=== PATIENT | female | born 1995 | race Caucasian/White ===

== ENCOUNTER 2024-08-08 02:40 | Inpatient (IN) ==
[2024-08-08] MEDS ORDERED: OXYTOCIN 30 UNITS/NSS 30 UNITS/500 ML BAG IV PRN ×2 (05:27→16:27)
[2024-08-08] MEDS ORDERED: LIDOCAINE 1% LOCAL 20 ML VIAL INFIL PRN (05:27)
--- NOTE | 2024-08-08 05:34 | History & Physical Report ---
Date of Service August 08, 2024 Assessment & Plan (1) Irregular contractions: (2) : Plan Admit in labor epidural for pain History of Present Illness Chief Complaint: labor Primary Care Provider: SUZIE PCP 30 F P0000 at 39 weeks admitted in labor. GBS is negative. Allergies Allergy/AdvReac Type Severity Reaction Status Date / Time amoxicillin AdvReac Mild Hives Verified 08/08/24 05:09 Home Medications Medication Instructions Recorded Confirmed Type Bifidobacterium infantis 4 mg 1,500 mmu cells PO DAILY 04/27/21 08/08/24 History capsule (Align) Prevacid 30 mg PO DAILY 08/08/24 08/08/24 History mecobalamin (vitamin B12) 1,000 1,000 mcg PO DAILY 08/08/24 08/08/24 History mcg chewable tablet (B12 Active) polyethylene glycol 8 ea miscellaneous DAILY 08/08/24 08/08/24 History vitamin-ferrous sulfate 1 tab PO DAILY 08/08/24 08/08/24 History 27 mg iron-folic acid 0.8 mg tablet Patient History Medical History GERD (gastroesophageal reflux disease) Gastroparesis Surgical History [place] teeth extracted H/O endoscopy H/O colonoscopy Social History Smoking Status: Never smoker Second Hand Exposure: No; Do You Dip or Chew Tobacco: No; Tobacco Cessation Education Requested by Patient: No Hx Alcohol Use: No Hx Substance Use: No Preferred Language: Japanese Communication Ability: Effective Glass Sander Required: No Beliefs That Will Affect Care: None marital status: Current Living Situation: Spouse Other Information That Helps Us Care for You: No Feels Safe at Home: Yes Safety Concerns: Feels Safe At This Time Assistive Devices: None 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 History neg Review of Systems All systems reviewed & are unremarkable except as noted in HPI & below Physical Exam Constitutional: WD/WN, vitals as above Eyes: PERRL, conjunctivae normal, anicteric sclerae Respiratory: normal respiratory effort, lungs clear to auscultation Cardiovascular: Rate/Rhythm: regular rate and regular rhythm Gastrointestinal (Abdomen): Inspection/Auscultation: abdomen normal to inspection Musculoskeletal: Extremities: extremities normal to inspection Skin: no rashes, warm and dry Neurologic: patellar DTR's 2+ bilat, sensation intact Psychiatric: A+Ox3, euthymic affect Genitourinary: Manual OB Exam: + cervical dilation 5 cm, + cervical effacement 50% and + station -2 OB Exam Monitor Tracing: + external FHT monitor used, + external uterine monitor used, + category I and + normal FHT variability Results & Data Vital Signs (Past 12 Hours) Vital Signs Temp Pulse Resp BP 08/08/24 04:51 37.1 C 18 08/08/24 02:48 87 120/74 Code Status & VTE Plan VTE Prophylaxis Plan VTE Prophylaxis will be ordered: No Monitoring External Monitor Cat 1 (2) Weeks of gestation: 39 weeks Qualified Code(s): Z3A.39 - 39 weeks gestation of
[2024-08-08 06:33] LABS: Hematocrit (blood only) 31.7 % (37.0-47.0); Hemoglobin 10.7 g/dl (12.0-16.0); Mean Corpuscular Hemoglobin 30.1 pg (25.0-34.0); Mean Corpuscular Hgb Conc 33.8 g/dL (32.0-36.0); Mean Corpuscular Volume 89.3 fL (80.0-100.0); Mean Platelet Volume 10.1 fL (9.4-12.4); Platelet Count 202 K/uL (130-400); RDW Coefficient of Variation 13.8 % (11.5-14.5); RDW Standard Deviation 45.2 fL (36.4-46.3); Red Blood Count 3.55 M/uL (4.20-5.40); White Blood Count 11.82 K/ul (4.8-10.8)
[2024-08-08] MEDS: LACTATED RINGER'S 1,000 ML IV PRN (07:10)
--- NOTE | 2024-08-08 07:24 | Anesthesiology Consultation ---
Date of Service August 08, 2024 Assessment & Plan (1) Encounter for pre-operative examination: Chart Review Chart Review: Acceptable Risk for Labor Epidural History Height/Weight Height: 5 ft 2 in Weight: 56.415 kg Allergies Allergy/AdvReac Type Severity Reaction Status Date / Time amoxicillin AdvReac Mild Hives Verified 08/08/24 05:09 Medications Home Medications Medication Instructions Recorded Confirmed Last Taken Bifidobacterium infantis 4 mg 1,500 mmu cells PO DAILY 04/27/21 08/08/24 Unknown capsule (Align) Prevacid 30 mg PO DAILY 08/08/24 08/08/24 Unknown mecobalamin (vitamin B12) 1,000 1,000 mcg PO DAILY 08/08/24 08/08/24 Unknown mcg chewable tablet (B12 Active) polyethylene glycol 8 ea miscellaneous DAILY 08/08/24 08/08/24 Unknown vitamin-ferrous sulfate 1 tab PO DAILY 08/08/24 08/08/24 Unknown 27 mg iron-folic acid 0.8 mg tablet Active Medications Generic Name Dose Route Start Last Admin Trade Name Freq PRN Reason Stop Dose Admin Lactated Ringer's 1,000 mls @ 125 mls/hr 08/08/24 05:27 08/08/24 07:10 Lr IV 08/10/24 05:26 999 mls/hr .Q8H PRN Administration L&D Protocol Protocol Past Medical History Medical History GERD (gastroesophageal reflux disease) Gastroparesis Past Surgical History Surgical History [place] teeth extracted H/O endoscopy H/O colonoscopy Social History Smoking Status: Never smoker Do You Dip or Chew Tobacco: No Hx Alcohol Use: No alcohol intake frequency: 0-2 drinks per day Hx Substance Use: No substance use type: does not use Physical Exam Vital Signs Last Vital Signs Temp 37.1 C 08/08/24 04:51 Pulse 90 08/08/24 07:13 Resp 18 08/08/24 05:27 BP 120/74 08/08/24 02:48 Pulse Ox 99 08/08/24 07:13 Testing Laboratory Results 08/08/24 05:49
[2024-08-08] MEDS: fentANYL 2 MCG/ML BUPIVacaine 0.125%-NSS 100ML BAG ONE (08:16)
[2024-08-08] MEDS: BUPIVACAINE 0.25% PF 30 ML VIAL ONE (08:25)
[2024-08-08] MEDS: fentaNYL citrate PF 100 MCG/2 ML VIAL ONE (08:25)
[2024-08-08] MEDS: SODIUM CHLORIDE 0.9% PF INJ 10 ML VIAL ONE (08:30)
[2024-08-08] MEDS: LIDOCAINE 2%/EPINEPHRINE 1:200,000 20 ML PF ONE (08:30)
[2024-08-08] MEDS ORDERED: BUPIVACAINE 0.25% PF 30 ML VIAL EPI PRN (08:37)
[2024-08-08] MEDS ORDERED: fentaNYL citrate PF 100 MCG/2 ML VIAL EPI PRN (08:37)
[2024-08-08] MEDS ORDERED: ONDANSETRON INJ 2 MG/ML 2 ML VIAL IV PRN (08:37)
[2024-08-08] MEDS ORDERED: ePHEDrine sulfate 50 MG/ML AMP IV PRN (08:37)
[2024-08-08] MEDS ORDERED: NALOXONE HCL 0.4 MG/1 ML VIAL/CARP IV PRN (08:37)
[2024-08-08] MEDS ORDERED: ROPIVACAINE 0.5% PF 5 MG/ML 20 ML VIAL EPI PRN (08:37)
[2024-08-08] MEDS ORDERED: NALOXONE HCL 1 MG in SODIUM CHLORIDE 0.9% 1,000 ML IV PRN (08:37)
[2024-08-08] MEDS ORDERED: SODIUM CHLORIDE 0.9% PF INJ 10 ML VIAL EPI PRN (08:37)
[2024-08-08] MEDS ORDERED: fentANYL 2 MCG/ML BUPIVacaine 0.125%-NSS 100ML BAG EPI PRN (08:37)
[2024-08-08] MEDS ORDERED: LIDOCAINE 2% MPF LOCAL 5 ML VIAL EPI PRN (08:37)
--- OUTSIDE RECORDS SUMMARY | 2024-08-08 08:38 | External Medical Summary | Summary of Care ---
Author Name Unknown Organization [facility] Address [address] [place] [address] Phone [phone] Care Team Providers Care Metal Roaster Name Role Phone Caroline Jc MD Primary Care Provid er Reason for Visit * Reason Comments Outpatient Testing Encounter Details Date Type Department Care Team (Late st Contact Info) Description 08/06/2024 11:40 AM EDT Laboratory Laboratory, [facility] [address] [place] [phone] [facility] [address] [place] [address] Antepartum anemia complicating Allergies Active Allergy Reactions Criticality Noted Date Comments Amoxicillin Hives High 07/28/2017 documented as of this encounter (statuses as of 08/06/2024) Medications Medication Sig Dispensed Refills Start Date End Date Status Probiotic Product (ALIGN) 4 MG Capsule Take 1 Capsule by mouth in the morning. Active Polyethylene Glycol 3350 17 GM/SCOOP Oral Powder Take 17 g by mouth in the morning. Active Lansoprazole 30 MG Oral Capsule Delayed Release (Prevacid) Take 1 Capsule by mouth in the morning. 90 Capsule 3 10/31/2023 Active Complete Oral Capsule Therapy Pack Take by mouth. Active Vitamin B-12 1000 MCG Oral Tablet (Cyanocobalamin) Take 1 Tablet by mouth in the morning. Active Breast PumpIndications:Negin st feeding status of mother Z39.1, GREG 08/12/24, double electric pump 1 Each 06/04/2024 Active documented as of this encounter (statuses as of 08/06/2024) Active Problems Problem Noted Date Diagnosed Date Antepartum anemia complicating 01/25/ 024 Overview: Significant anemia at NOB. Ask A Doc to hematology 01/25. Recommend oral iron, recheck CBCD and refer to hematology for IV iron if not improving. 01/31/24: Unable to tolerate PO iron. Referral placed to hematology. Supervision of normal first , antepartu m 01/25/2024 Chronic urticaria 07/11/2018 Overview: since November, Gastroparesis 09/14/2017 Estimated Date of Delivery Comme nts Yes 08/12/2024 Based on Ultraso und documented as of this encounter (statuses as of 08/06/2024) Immunizations Name Administration Dates Next Due COVID-19 mRNA, LNP-s, No Pre serve, 2-Dose Series (Triangulate) 10/15/2021,03/16/2021,02/23/2021 Covid-19, Mrna, Lnp-s, Pf, B ivalent, 30 Mcg, IM, 12 yrs and above (Triangulate) 09/09/2022 DTaP Dipth/Tet/Acell Pertussis (Infanrix), Peds 04/13/1998,06/08/1995,1994,05/10,1994 H1N1 2009 Influenza, IM 10/14/2009 HIB PRP-T, 4 Dose, PF, IM (H iberix, ActHib) 06/08/1995,1994,1994,05/09 HPV Vaccine, 4-Valent 02/21/2013, 012,08/02/2011,05/19 Hepatitis B, 0-19 yrs 03/10/1995,1994,02/12 IPV - Polio Virus Vaccine (Inact) 1997,1994,1994,05/09 MMR - Measles/Mumps/Rubella Vaccine 03/15/1999,0 06/08/1995 Meningococcal Conjugate Vacc ine (Menactra/Menveo) 05/19/2011,07/02/2008 Meningococcal MCV4P Conjugat e Vaccine (Menactra) 05/19/2011,07/02/2008 Seasonal Influenza Virus Vac cine, Unspecified Formulation 08/24/2021,08/10/2020,08/19/2019 Seasonal Influenza, PF, 6 M & above, IM , (FluLaval or Fluzone) 08/15/2023,09/16/2022,08/24/2021,08/10,08/19/2019 Seasonal Influenza, Trivalen t, (IIV3), PF, (Fluzone) 07/16/2024 TDAP (age 10 and older)(Boostrix) 08/02/2018 TDAP, Age 7 and older, IM (Adacel) 05/21/2024 Varicella Vaccine (Chicken Pox) 07/02/2008,03/15 documented as of this encounter Social History Tobacco Use Types Packs/Day Years Used Date Smoking Tobacco: Never Smokeless Tobacco: Never Alcohol Use Standard Drinks/Week Comments Not Currently 0 (1 standard drink = 0.6 oz pur e alcohol) rarely PHQ-2 Answer Date Recorded PHQ Adult Total Score 0 09/16/2022 Hunger Vital Sign Answer Date Recorded Within the past 12 months, y ou worried that your food would run out before you got the money to buy more. Never true 03/25/20 24 Within the past 12 months, t he food you bought just didn't last and you didn't have money to get more. Never true 03/25/2024 [place] Depression Scale Answer Date Recorded [place] Depression Scale Total 1 06/17/2024 The thought of harming myself has occurred to me . Never 06/17/2024 Childcare Answer Date Recorded Do you feel overwhelmed with taking care of a child, family member or friend? No 03/25/2024 Does your family need help f inding childcare? (Household - for ages 0-17 years) Not on file 03/25/2024 Clothing Answer Date Recorded Have you been unable to get clothing when it was really needed? No 03/25/2024 Is your family able to get c lothes or diapers when needed? (Household - for ages 0-17 years) Not on file 03/25/2024 Personal Safety Answer Date Recorded Do you feel unsafe or have concerns for your saf ety? No 03/25/2024 Do you have concerns for you r family's safety? (Household - for ages 0-17 years) Not on file 03/25/2024 Utilities Answer Date Recorded Do you have trouble paying y our heating, water, or electric bill? No 03/25/2024 Is your family able to pay t he heat, water, or electric bill? (Household - for ages 0-17 years) Not on file 03/25/2024 Does your family have access to good internet? (Household - for ages 0-17 years) Not on file 03/25/2024 Employment Status Answer Date Recorded Are you unemployed or without regular income? No 03/25/2024 Does the household have a re gular source of income? (Household - for ages 0-17 years) Not on file 03/25/2024 Social Connections Answer Date Recorded How often do you feel lonely or isolated from th ose around you? Never 03/25/2024 Financial Resource Strain Answer Date R ecorded Do you have any trouble payi ng for your medications, or do you think you might in the future? No 03/25/2024 Does your family have troubl e paying for medicine? (Household - for ages 0-17 years) Not on file 03/25/2024 Transportation Needs Answer Date Record ed READ ONLY Do you have troubl e getting a ride to medical visits or work? Never True 03/25/2024 Does your family have a hard time getting a ride to doctors visits? (Household - for ages 0-17 years) Not on file 03/25/2024 Has lack of transportation k ept you from medical appointments, meetings, work, or from getting things needed for daily living? Check all that apply. (Adult - for ages 18 years and over) Not on file 03/25/2024 Do you (or your family) have trouble finding or paying for a ride (transportation)? (Household - for ages 0-17 years) Not on file 03/25/2024 Housing Stability Answer Date Recorded Do you currently live in a s helter or have no steady place to sleep at night? No 03/25/2024 READ ONLY Do you think you a re at risk of becoming homeless? No 03/25/2024 Does your family worry about paying for your home or becoming homeless? (Household - for ages 0-17 years) Not on file 0 03/25/2024 Are you homeless or worried that you might be in the future? (Adult - for ages 18 years and over) Not on file Are you (or your family) john eless or worried that you might be in the future? (Household - for ages 0-17 years) Not on file Food Insecurity Answer Date Recorded Do you need food for this week? No 03/25/2024 Are you able to get enough f ood for your family? (Household - for ages 0-17 years) Not on file 03/25/2024 Does your family need food t his week? (Household - for ages 0-17 years) Not on file 03/25/2024 Do you always have enough fo od for your family? (Household - for ages 0-17 years) Not on file 03/25/2024 Estimated Date of Delivery Comme nts Yes 08/12/2024 Based on Ultraso und Sex and Gender Information Value Date Recorded Sex Assigned at Female 02/08/2019 7:33 AM EDT Gender Identity Female 02/08/2019 7:33 AM EDT Sexual Orientation Straight 02/08/2019 7: 33 AM EDT Job Start Date Occupation Industry Not on file Not on file Not on file documented as of this encounter Plan of Treatment Upcoming Encounters Date Type Department Care Team (Late st Contact Info) Description 08/12/2024 11:30 AM EDT Office Visit Gynecology/Obstetrics [facility] [address] [address] Beth Prakash PA-C [address] [place] [address] 09/19/2024 7:15 AM EST Cardiac Studies Cardiac Studies, [facility] [place] [address] [address] 11/21/2024 3:00 PM EST Telemedicine Hematology/Oncology [facility] [place] [address] [place] [phone] Mg Pamela Mejian, MEDIA MARKETING SPECIALIST [address] [facility] [place] [address] 12/03/2024 9:00 AM EST Telemedicine Cardiology[facility] [address] [place] [place] [address] Louis Perez DO [address] [facility] [address] Pending Results Name Type Priority Associated Diagnoses Date /Time CBC WITH WBC DIFFERENTIAL Lab STAT Antepartum anemia complicating 08/06/2024 11:30 AM EDT IRON SCREEN, INCLUDING TIBC Lab STAT Antepartum anemia complicating 08/06/2024 11:30 AM EDT FERRITIN Lab STAT Antepartum anemia complicating 08/06/2024 11:30 AM EDT CBC Lab STAT Antepartum anemia complicating 08/06/2024 11:30 AM EDT DIFFERENTIAL, AUTOMATED Lab STAT Antepartum anemia complicating 08/06/2024 11:30 AM EDT Health Maintenance Due Date Last Done Comments Depression Screening 09/16/2023 09/16/2022 HPV/Co-Test 2024 COVID-19 Vaccine ( season) 2024 09/09/2022, 10/15/2021, 03/16/2021, Additional history exists Cervical Cancer Screening 09/22/2024 Pap Smear 09/22/2024 09/22/2021, 09/13, 09/26/2018, Additional history exists DTap/Tdap Vaccines (7 - Td or Tdap) 05/21/2034 05/21/2024, 08/02/2018, 04/13/1998, Additional history exists Hepatitis B Vaccine Completed 03/10/1995, 1994, 1994 MENINGOCOCCAL (MENACTRA/MENVEO) Completed 05/19/2011, 05/19/2011, 07/02/2008, Additional history exists HPV (Gardasil) Vaccine Completed 3, 02/22/2012, 08/02/2011, Additional history exists Influenza Vaccine (FLU shot) Completed 01/2024, 08/15/2023, 09/16/2022, Additional history exists Pneumococcal Vaccine: Pediatrics (0 to 5 Years) and At-Risk Patients (6 to 64 Years) Aged Out No longer eligible based on patient's age to complete this topic documented as of this encounter Medical Devices Not on filedocumented as of this encounter Visit Diagnoses Diagnosis Antepartum anemia complicating Anemia, antepartum documented in this encounter Care Teams Metal Roaster Relationship Specialty Start Date End Date Caroline Jc MD [address] [place] [address] PCP - General Family Medicine 03/02/22 documented as of this encounter
--- OUTSIDE RECORDS SUMMARY | 2024-08-08 08:38 | External Medical Summary ---
Author Name Unknown Address Unknown Organization [facility] [place] [address] Laboratory Report Ordering Provider Test Date Status NADIA DIAS 08/06/2024 11:30:33 Final Observation Date Value Abnormality Reference (Units ) Status SYNC LEUKOCYTES IN BLOOD BY AUTOMATED COUNT 08/06/2024 11:30:33 9.63 4.00-10.80 (K/uL) Final Segs 08/06/2024 11:30:33 73.7 40.0-75.0 (%) Final Lymphs % 08/06/2024 11:30:33 15.5 Below low normal 18.0-42.0 (%) Final Monos 08/06/2024 11:30:33 9.9 1.0-11.0 (%) Final Eosinophils 08/06/2024 11:30:33 0.7 0.0-6.0 (%) Final Basos 08/06/2024 11:30:33 0.2 0.0-2.0 (%) Final Absolute Segs 08/06/2024 11:30:33 7.10 1.80-7.70 (K/uL) Final Lymphs, absolute 08/06/2024 11:30:33 1.49 1.00-4.80 (K/ul) Final Monos, Abs 08/06/2024 11:30:33 0.95 0.00-1.10 (K/uL) Final Eos, Abs 08/06/2024 11:30:33 0.07 0.00-0.70 (K/uL) Final Basos, Abs 08/06/2024 11:30:33 0.02 0.00-0.20 (K/uL) Final Performing Location [facility] [place] [address]
--- OUTSIDE RECORDS SUMMARY | 2024-08-08 08:38 | External Medical Summary | Summary of Care ---
Author Name Unknown Organization [facility] Address [address] [place] [address] Phone [phone] Care Team Providers Care Underground Supervisor Name Role Phone Caroline Jc MD Primary Care Provid er Reason for Visit * Reason Comments Return Visit Encounter Details Date Type Department Care Team (Late st Contact Info) Description 08/06/2024 11:15 AM EDT Office Visit Gynecology/Obstetric s [facility] [address] [place] [address] Lulú Boyce CRNP [address] [place] [address] Supervision of normal first , antepartum*; Antepartum anemia complicating Allergies Active Allergy Reactions [...] by mouth in the morning. Active Breast PumpIndications:[place] st feeding status of mother Z39.1, GREG 08/12/24, double electric pump 1 Each 06/04/2024 Active documented as of this encounter (statuses as of 08/06/2024) Active Problems Problem Noted Date Diagnosed Date Antepartum anemia complicating 024 Overview: Significant anemia at NOB. Ask [...] mRNA, LNP-s, No Pre serve, 2-Dose Series (Proterro) 10/15/2021,03/16/2021,02/23/2021 Covid-19, Mrna, Lnp-s, Pf, B ivalent, 30 Mcg, IM, 12 yrs and above (Proterro) 09/09/2022 DTaP Dipth/Tet/Acell Pertussis (Infanrix), Peds 04/13/1998,06/08/1995,1994,05/10,1994 [...] money to get more. Never true 03/25/2024 [place] Depression Scale Answer Date Recorded [place] Depression Scale Total 1 06/17/2024 The thought [...] on file documented as of this encounter Last Filed Vital Signs Vital Sign Reading Time Taken Comments Blood Pressure 92/68 08/06/2024 11:10 AM EDT Pulse - - Temperature - - Respiratory Rate - - Oxygen Saturation - - Inhaled Oxygen Concentration - - Weight 56.2 kg (124 lb) 08/06/2024 11:10 AM EDT Height 157.5 cm (5' 2") 08/06/2024 11:10 AM EDT Body Mass Index 22.68 08/06/2024 11:10 AM EDT documented in this encounter Progress Notes * Lulú Boyce CRNP - 08/06/2024 11:26 AM EDT 39w1d Questions regarding safety of PPIs with . Reviewed omeprazole, lansoprazole, pantoprazole. Sees GI regularly. No other concerns. Some pelvic pressure, BH contractions. Baby is active. Denies bleeding or LOF. TITA Tejeda documented in this encounter Nursing Notes * Lavinia Bettencourt LPN - 08/06/2024 11:14 AM EDT 39w1d Denies concerns documented in this encounter Plan of Treatment Upcoming Encounters Date Type Department Care Team (Late st Contact Info) Description 08/12/2024 11:30 AM EDT Office Visit [facility]ne[facility]stetrics [facility] [place] [address] Beth Prakash PA-C [address] [place] [address] 09/19/2024 7:15 AM EST Cardiac Studies Cardiac Studies, [facility] [address] [facility] [place] [address] 11/21/2024 3:00 PM EST Telemedicine Hematology/Oncology [facility] [address] [facility] [phone] Pamela Holliday CRNP [address] [place] [address] 12/03/2024 9:00 AM EST Telemedicine Cardiology, [place] [address] [place] [address] Louis Perez DO [address] [place] [address] Health Maintenance Due Date Last Done Comments [...] as of this encounter Visit Diagnoses Diagnosis Supervision of normal first , antepartum- Primary Antepartum anemia complicating Anemia, antepartum documented in this encounter Care Teams Underground Supervisor Relationship Specialty Start Date End Date Caroline Jc MD [address] [place] [address] PCP - General Family Medicine 03/02/22 documented as of this encounter
--- OUTSIDE RECORDS SUMMARY | 2024-08-08 08:38 | External Medical Summary ---
Author Name Unknown Address Unknown Organization [id number] - [address] [place] [address] Laboratory Report Ordering Provider Test Date Status NADIA DIAS 08/06/2024 11:30:33 Final Observation Date Value Abnormality Reference (Units ) Status WBC, Total 08/06/2024 11:30:33 9.63 4.00-10.8 0 (K/uL) Final RBC 08/06/2024 11:30:33 3.50 3.85-5.15 (M/uL) Final Hemoglobin 08/06/2024 11:30:33 10.7 Below low normal 12 .0-15.3 (g/dL) Final HCT 08/06/2024 11:30:33 32.6 Below low normal 36. 0-45.2 (%) Final MCV 08/06/2024 11:30:33 93.1 81.5-97.5 (fL) Final MCH 08/06/2024 11:30:33 30.6 27.0-34.0 (pg) Final MCHC 08/06/2024 11:30:33 32.8 32.0-36.0 (g/dL) Final RDW 08/06/2024 11:30:33 14.3 11.5-15.5 (%) Final Platelets 08/06/2024 11:30:33 212 140-400 (K /uL) Final MPV 08/06/2024 11:30:33 9.7 6.6-11.1 ( fL) Final Performing Location [facility] [place] [address]
--- OUTSIDE RECORDS SUMMARY | 2024-08-08 08:38 | External Medical Summary ---
Author Name Unknown Address Unknown Organization [facility] [place] [address] [place] [address] Laboratory Report Ordering Provider Test Date Status NADIA DIAS 08/06/2024 11:30:33 Final Observation Date Value Abnormality Reference (Units ) Status Iron 08/06/2024 11:30:33 89 33-151 (ug /dL) Final Iron-binding capacity 08/06/2024 11:30:33 409 250-425 (ug/dL) Final Transferrin Sat % 08/06/2024 11:30:33 22 15 -55 (%) Final Performing Location [facility] - [address] [place] [address]
--- OUTSIDE RECORDS SUMMARY | 2024-08-08 08:38 | External Medical Summary | Summary of Care ---
Author Name Unknown Organization [facility] Address [address] [place] [address] Phone [phone] Care Team Providers Care Res Counselor Name Role Phone Caroline Jc MD Primary Care Provid er Reason for Visit * Reason Onset Date Comments Contractions 08/07/2024 Review with eric pink Encounter Details Date Type Department Care Team (Late st Contact Info) Description 08/07/2024 Telephone Gynecology/Obstetrics [facility] [address] [place] [address] Franco Theodore MD [address] [place] [id number] Contractions (Review with jessee) Allergies Active Allergy Reactions Criticality Noted Date Comments Amoxicillin Hives High 07/28/2017 documented as of this encounter (statuses as of 08/07/2024) Medications Medication Sig Dispensed Refills Start Date [...] as of this encounter (statuses as of 08/07/2024) Active Problems Problem Noted Date Diagnosed Date [...] as of this encounter (statuses as of 08/07/2024) Immunizations Name Administration Dates Next Due COVID-19 mRNA, LNP-s, No Pre serve, 2-Dose Series ([employer]) 10/15/2021,03/16/2021,02/23/2021 Covid-19, Mrna, Lnp-s, Pf, B ivalent, 30 Mcg, IM, 12 yrs and above ([employer]) 09/09/2022 DTaP Dipth/Tet/Acell Pertussis ([employer]an[employer]), Peds 04/13/1998,06/08/1995,1994,05/10,1994 [...] money to get more. Never true 03/25/2024 [place] Depression Scale Answer Date Recorded [place] Depression Scale Total 1 06/17/2024 The thought [...] on file documented as of this encounter Miscellaneous Notes * Telephone Encounter - Nancy Vega LPN - 08/07/2024 3:11 PM EDT Spoke with pt she verbalized understanding * Telephone Encounter - Nancy Vega LPN - 08/07/2024 1:33 PM EDT Pt called in with having contractions every 20-30 mins today denies any vb, lof and baby is moving well. I told pt to rest drink plenty of fluids and typically we have you call when your contractionsare every 5 mins for an hour, but I will discuss with lead generation representative provider and call her back. Please review if any further recommendations are needed documented in this encounter Plan of Treatment Upcoming Encounters Date Type Department Care Team (Late st Contact Info) Description 08/12/2024 11:30 AM EDT Office Visit Gynecology/[facility]stetrics [facility] [address] [facility] [place] [address] Beth Prakash PA-C [address] [place] [address] 09/19/2024 7:15 AM EST Cardiac Studies Cardiac Studies, [facility] [address] [place] [address] 11/21/2024 3:00 PM EST Telemedicine Hematology/Oncology [facility] [address] [facility] [phone] Pamela Holliday CRNP [address] [facility] [place] [address] 12/03/2024 9:00 AM EST Telemedicine Cardiology, [place] [address] [place] [address] Louis Perez DO [address] [place] [address] Health Maintenance Due Date Last Done Comments [...] Not on filedocumented as of this encounter Care Teams Res Counselor Relationship Specialty Start Date End Date Caroline Jc MD [address] [place] [address] PCP - General Family Medicine 03/02/22 documented as of this encounter
--- OUTSIDE RECORDS SUMMARY | 2024-08-08 08:38 | External Medical Summary ---
Author Name Unknown Address Unknown Organization K01:[facility] - [address] [place] [address] Laboratory Report Ordering Provider Test Date Status LARISSANADIA 08/06/2024 11:30:33 Final Observation Date Value Abnormality Reference (Units ) Status Ferritin 08/06/2024 11:30:33 403 Above high normal 13 -150 (ng/mL) Final Performing Location [facility] - [address] [place] [address]
--- OUTSIDE RECORDS SUMMARY | 2024-08-08 08:39 | External Medical Summary ---
Author Name Unknown Address Unknown Organization [id number]:LABORATORY [facility] [place] - [address] [place] [address] Laboratory Report Ordering Provider Test Date Status NADIA DIAS 07/18/2024 08:10:20 Final Observation Date Value Abnormality Reference (Units ) Status Ferritin 07/18/2024 08:10:20 52 13-150 (ng /mL) Final Performing Location [facility] - [address] [place] [address]
--- OUTSIDE RECORDS SUMMARY | 2024-08-08 08:39 | External Medical Summary | Summary of Care ---
Author Name Unknown Organization [facility] Address [address] [place] [address] Phone [phone] Care Team Providers Care Turret Lathe Machinist Name Role Phone Caroline Jc MD Primary Care Provid er Reason for Visit * Reason Onset Date Comments Return Visit Medication Administration 07/16/2024 Flu an d/or Pneumo Inj Encounter Details Date Type Department Care Team (Late st Contact Info) Description 07/16/2024 3:30 PM EDT Office Visit Gynecology/Obstetric s [facility] [address] [facility] [place] [address] Eleni Dent PA-C [address] [place] [address] Supervision of normal first , antepartum*; Antepartum anemia complicating ; Vaginal discharge during in third trimester Allergies Active Allergy Reactions Criticality Noted Date Comments Amoxicillin Hives High 07/28/2017 documented as of this encounter (statuses as of 07/16/2024) Medications Medication Sig Dispensed Refills Start Date [...] as of this encounter (statuses as of 07/16/2024) Active Problems Problem Noted Date Diagnosed Date [...] as of this encounter (statuses as of 07/16/2024) Immunizations Name Administration Dates Next Due COVID-19 mRNA, LNP-s, No Pre serve, 2-Dose Series ([employer]) 10/15/2021,03/16/2021,02/23/2021 Covid-19, Mrna, Lnp-s, Pf, B ivalent, 30 Mcg, IM, 12 yrs and above ([employer]) 09/09/2022 DTaP Dipth/Tet/Acell Pertussis (Infanrix), Peds 04/13/1998,06/08/1995,1994,05/10,1994 [...] money to get more. Never true 03/25/2024 [place] Depression Scale Answer Date Recorded [place] Depression Scale Total 1 06/17/2024 The thought [...] No 03/25/2024 Does the household have a [facility] source of income? (Household - for ages [...] Sign Reading Time Taken Comments Blood Pressure 112/62 07/16/2024 3:32 PM EDT Pulse - - Temperature - - Respiratory Rate - - Oxygen Saturation - - Inhaled Oxygen Concentration - - Weight 55.4 kg (122 lb 3.2 oz) 07/16/2024 3:32 P M EDT Height - - Body Mass Index 22.35 06/17/2024 4:22 PM EDT documented in this encounter Progress Notes * Autumn Ochoa CMA - 07/16/2024 4:21 PM EDT Patient here for FLU vaccine injection. Patient doing well no complaints. Injection given IM as ordered. Patient tolerated well. Patient to follow up as directed. Patient instructed to call if any complications. Patient verbalized understanding of instructions given and her follow up appt for CHAN Injection site: Right Deltoid Medication Source: Dispensed stock medication * Eleni Dent PA-C - 07/16/2024 3:33 PM EDT Rubia Umana is a 29 year old female here for her routine OB appointment at 36w1d Her Estimated Date of Delivery: 08/12/24 She has been reporting an increase in pelvic pressure and cramping over the last few weeks. Denies any regular or timeable contractions. She does have a belly band which she does not feel is helping much anymore. She is also reporting an increase in vaginal discharge. This is not new for the , but feels the volume has increased. Denies burning, itching, odor. She is on Prevacid for acid reflux and Gastroparesis. Has been following with GI for management of this. She also is seeing BM for iron infusions as she was unable to tolerate PO iron. Last CBC completed 07/08 showed Hgb 9.8. She is scheduled for repeat CBC at the end of the week. REVIEW OF SYSTEMS She affirms movement. Denies vaginal bleeding, LOF, regular contractions. PHYSICAL EXAM Filed Vitals: 07/16/24 1532 BP: 112/62 Weight: 55.4 kg (122 lb 3.2 oz) +FHT 130s Fundal height 36 cm GBS swab collected. Vaginosis culture collected. Erp Technical Lead Documentation Patient offered managing editor and accepted. Name of managing editor: Autumn Ochoa CMA. ASSESSMENT/PLAN Supervision of normal first , antepartum (Primary) - GROUP B STREP CULTURE/PCR; Future; Expected date: 07/16/2024 - INFLUENZA VAC, TRIVALENT, (IIV3), PF, 0.5 ML (FLUZONE) Antepartum anemia complicating - Received iron infusions. Encouraged her to complete CBC as ordered and scheduled. BM will reach out to her once completed. - Discussed possible need for subsequent iron infusions if Hgb remaining low. Will defer to BM teamfor management. Vaginal discharge during in third trimester - VAGINOSIS PANEL, PCR; Future; Expected date: 07/16/2024 Supervision of - desires flu vaccination today. - GBS swab collected today - vaginosis culture collected. Will treat as indicated. - recommended follow-up with GI regarding Prevacid prescription. Can also discuss on L&D preferred PPIs while , however, discussed limited studies. Discussed risk versus benefit ratio. Patient reports this PPI is the first one that has worked for her and is hesitant to change. - encouraged belly band, light stretching, yoga for round ligament pain/cramping in . - labor precautions and kick counts reviewed RTO in 1 week Eleni Dent PA-C 07/16/2024 * Autumn Ochoa CMA - 07/16/2024 3:32 PM EDT 36w1d +donita walker GBS today documented in this encounter Plan of Treatment Upcoming Encounters Date Type Department Care Team (Late st Contact Info) Description 07/18/2024 7:50 AM EDT Laboratory Laboratory, [place] [address] [place] [address] [place], Laboratory [address] [place] [address] 07/22/2024 4:30 PM EDT Office Visit Gynecology/Obstetrics [facility] [address] [facility] [place] [address] Beth Prakash PA-C [address] [place] [address] 07/29/2024 1:30 PM EDT Office Visit Gynecology/Obstetrics [facility] [address] [facility] [place] [address] Lulú Boyce CRNP [address] [place] [address] 08/05/2024 11:30 AM EDT Office Visit Gynecology/Obstetrics [facility] [address] [place] [address] Beth Prakash PA-C [address] [place] [address] 08/08/2024 7:15 AM EDT Cardiac Studies Cardiac Studies, [facility] [address] [place] [address] 08/12/2024 11:30 AM EDT Office Visit Gynecology/Obstetrics [facility] [address] [place] [address] Beth Prakash PA-C [address] [place] [address] 11/21/2024 3:00 PM EST Telemedicine Hematology/Oncology [facility] [address] [facility], [place] [phone] Pamela Holliday CRNP [address] [place] [address] 12/03/2024 9:00 AM EST Telemedicine Cardiology, [place] [address] [place] [address] Louis Perez DO [address] [place] [address] Pending Results Name Type Priority Associated Diagnoses Date /Time GROUP B STREP CULTURE/PCR Lab Routine Supervision of normal first , antepartum 07/16/2024 4:20 PM EDT VAGINOSIS PANEL, PCR Lab Routine Vaginal discharge during in third trimester 07/16/2024 4:20 PM EDT Scheduled Orders Name Type Priority Associated Diagnoses Orde r Schedule GROUP B STREP CULTURE/PCR Lab Routine Supervision of normal first , antepartum Expected: 07/16/2024, Expires: 07/16/2025 VAGINOSIS PANEL, PCR Lab Routine Vaginal discharge during in third trimester Expected: 07/16/2024, Expires: 07/16/2025 Health Maintenance Due Date Last Done Comments [...] antepartum- Primary Antepartum anemia complicating Anemia, antepartum Vaginal discharge during in third trimester documented in this encounter Care Teams Turret Lathe Machinist Relationship Specialty Start Date End Date Caroline Jc MD [address] [place] [address] PCP - General Family Medicine 03/02/22 documented as of this encounter
--- OUTSIDE RECORDS SUMMARY | 2024-08-08 08:39 | External Medical Summary | Summary of Care ---
Author Name Unknown Organization [facility] Address [address] [place] [address] Phone [phone] Care Team Providers Care Manager Area Name Role Phone Caroline Jc MD Primary Care Provid er Reason for Visit * Reason Comments Outpatient Testing Encounter Details Date Type Department Care Team (Late st Contact Info) Description 07/08/2024 7:40 AM EDT Laboratory Laboratory, [place] [address] [place] [phone] [place], Laboratory [address] [place], [place] [phone] Antepartum anemia complicating Allergies Active Allergy Reactions Criticality Noted Date Comments Amoxicillin Hives High 07/28/2017 documented as of this encounter (statuses as of 07/08/2024) Medications Medication Sig Dispensed Refills Start Date [...] as of this encounter (statuses as of 07/08/2024) Active Problems Problem Noted Date Diagnosed Date [...] as of this encounter (statuses as of 07/08/2024) Immunizations Name Administration Dates Next Due COVID-19 mRNA, LNP-s, No Pre serve, 2-Dose Series ([employer]) 10/15/2021,03/16/2021,02/23/2021 Covid-19, Mrna, Lnp-s, Pf, B ivalent, 30 Mcg, IM, 12 yrs and above ([employer]) 09/09/2022 DTaP Dipth/Tet/Acell Pertussis (Infanrix), Peds 04/13/1998,06/08/1995,1994,05/10,1994 [...] above, IM , (FluLaval or Fluzone) 08/15/2023,09/16/2022,08/24/2021,08/10,08/19/2019 TDAP (age 10 and older)([employer]) 08/02/2018 TDAP, [...] money to get more. Never true 03/25/2024 [place] Depression Scale Answer Date Recorded [place] Depression Scale Total 1 06/17/2024 The thought [...] 03/25/2024 Does the household have a re lar source of income? (Household - for ages [...] Description 07/16/2024 3:30 PM EDT Office Visit Gynecology/Obstetrics [facility] [address] [place] [address] Eleni Dent PA-C [address] [place] [address] [place] [address] 07/22/2024 4:30 PM EDT Office Visit Gynecology/Obstetrics [facility] [address] [place] [address] Beth Prakash PA-C [address] [place] [address] 07/29/2024 1:30 PM EDT Office Visit Gynecology/Obstetrics [facility] [address] [place] [address] Lulú Boyce CRNP [address] [place], [place] [address] 08/05/2024 11:30 AM EDT Office Visit Gynecology/Obstetrics [facility] [address] [place] [address] Beth Prakash PA-C [address] [place] [address] 08/08/2024 7:15 AM EDT Cardiac Studies Cardiac Studies, [facility] [address] [place] [address] 08/12/2024 11:30 AM EDT Office Visit Gynecology/Obstetrics [facility] [address] [place] [address] Beth Prakash PA-C [address] [place] [address] 11/21/2024 3:00 PM EST Telemedicine Hematology/Oncology [facility] [address] [facility], [place] [phone] Pamela Holliday CRNP [address] [place] [address] 12/03/2024 9:00 AM EST Telemedicine Cardiology, [place] [address] [place] [address] Louis Perez DO [address] [place] [address] Pending Results Name Type Priority Associated Diagnoses Date /Time CBC WITH WBC DIFFERENTIAL Lab STAT Antepartum anemia complicating 07/08/2024 7:43 AM EDT IRON SCREEN, INCLUDING TIBC Lab STAT Antepartum anemia complicating 07/08/2024 7:43 AM EDT FERRITIN Lab STAT Antepartum anemia complicating 07/08/2024 7:43 AM EDT CBC Lab STAT Antepartum anemia complicating 07/08/2024 7:43 AM EDT DIFFERENTIAL, AUTOMATED Lab STAT Antepartum anemia complicating 07/08/2024 7:43 AM EDT Health Maintenance Due Date Last Done Comments COVID-19 Vaccine ( season) 2023 09/09/2022, 10/15/2021, 03/16/2021, Additional history exists Depression Screening 09/16/2023 09/16/2022 HPV/Co-Test 2024 Influenza Vaccine (FLU shot) (#1) 2024 08/15/2023, 09/16/2022, 08/24/2021, Additional history exists Cervical Cancer Screening 09/22/2024 Pap Smear 09/22/2024 09/22/2021, 09/13, 09/26/2018, Additional history exists DTaP,Tdap,and Td Vaccines (7 - Td or Tdap) 05/21/2034 05/21/2024, 08/02/2018, 04/13/1998, Additional history exists Hepatitis B Vaccine Completed 03/10/1995, 1994, 1994 MENINGOCOCCAL (MENACTRA/MENVEO) Completed 05/19/2011, 05/19/2011, 07/02/2008, Additional history exists HPV (Gardasil) Vaccine Completed 3, 02/22/2012, 08/02/2011, Additional history exists Pneumococcal Vaccine: Pediatrics (0 to 5 Years) and At-Risk Patients (6 to 64 Years) Aged Out No longer eligible based on patient's age to complete this topic documented as of this encounter Medical Devices Not on filedocumented as of this encounter Visit Diagnoses Diagnosis Antepartum anemia complicating Anemia, antepartum documented in this encounter Care Teams Manager Area Relationship Specialty Start Date End Date Caroline Jc MD [address] [place] [address] PCP - General Family Medicine 03/02/22 documented as of this encounter
--- OUTSIDE RECORDS SUMMARY | 2024-08-08 08:39 | External Medical Summary ---
Author Name Unknown Address Unknown Organization K01:[facility]ORY [facility] [place] [address] [address] Laboratory Report Ordering Provider Test Date Status NADIA DIAS 07/18/2024 08:10:20 Final Observation Date Value Abnormality Reference (Units ) Status WBC, Total 07/18/2024 08:10:20 8.33 4.00-10.80 (K/uL) Final RBC 07/18/2024 08:10:20 3.17 3.85-5.15 (M/uL) Final Hemoglobin 07/18/2024 08:10:20 9.8 Below low normal 12.0-15.3 (g/dL) Final HCT 07/18/2024 08:10:20 30.3 Below low normal 36.0-45.2 (%) Final MCV 07/18/2024 08:10:20 95.6 81.5-97.5 (fL) Final MCH 07/18/2024 08:10:20 30.9 27.0-34.0 (pg) Final MCHC 07/18/2024 08:10:20 32.3 32.0-36.0 (g/dL) Final RDW 07/18/2024 08:10:20 13.7 11.5-15.5 (%) Final Platelets 07/18/2024 08:10:20 191 140-400 (K/uL) Final MPV 07/18/2024 08:10:20 10.2 6.6-11.1 (fL) Final Nucleated erythrocytes/100 leukocytes [Ratio] in Blood by Automated count 07/18/2024 08:10:20 0 <=0 (/100 WBCs) Final Performing Location [facility]ORY [facility] [place] [address] [facility] [place] [address]
--- OUTSIDE RECORDS SUMMARY | 2024-08-08 08:39 | External Medical Summary ---
Author Name Unknown Address Unknown Organization K01:LABORATORY [facility] [place] - [address] [facility] [address] Laboratory Report Ordering Provider Test Date Status KULDEEP OREILLY 07/16/2024 16:20:17 Final Observation Date Value Abnormality Reference (Units ) Status Bacterial vaginosis [Interpretation] in Vaginal fluid Qualitative 07/16/2024 16:20:17 Negative Negative Final Negative for Bacterial Vagin osis. Correlate results with other clinical findings. Little sp DNA [Presence] in Vaginal fluid by Probe 07/16/2024 16:20:17 Negative Negative Final No Little species group RNA detected. Correlate results with other clinical findings. Little glabrata RNA [Presen ce] in Vaginal fluid by SHERIE with probe detection 07/16/2024 16:20:17 Negative Negative Final No Little glabrata RNA dete cted. Correlate results with other clinical findings. Trichomonas vaginalis DNA [P resence] in Vaginal fluid by Probe 07/16/2024 16:20:17 Negative Negative Final No Trichomonas vaginalis RNA detected. Performing Location [facility] - [address] [facility] [address]
--- OUTSIDE RECORDS SUMMARY | 2024-08-08 08:39 | External Medical Summary ---
Author Name Unknown Address Unknown Organization K01:LABORATORY [place] [address] [place] [address] Laboratory Report Ordering Provider Test Date Status KULDEEP OREILLY 07/16/2024 16:20:17 Final Observation Date Value Abnormality Reference (Units ) Status Streptococcus agalactiae DNA [Presence] in Specimen by SHERIE with probe detection 07/16/2024 16:20:17 Negative Negative Final No Group B Streptococcus det ected by culture-enhanced PCR (amplified probe). GBS GBSCT - [facility] 07/16/2024 16:20:17 0.0 Final GBS SPCCT - [facility] 07/16/2024 16:20:17 29.8 Final Performing Location [facility] [facility] [place] [address] [place] [address]
--- OUTSIDE RECORDS SUMMARY | 2024-08-08 08:39 | External Medical Summary ---
Author Name Unknown Address Unknown Organization K01:[facility] - [address] [facility] [place] [address] Laboratory Report Ordering Provider Test Date Status NADIA DIAS 07/18/2024 08:10:20 Final Observation Date Value Abnormality Reference (Units ) Status SYNC LEUKOCYTES IN BLOOD BY AUTOMATED COUNT 07/18/2024 08:10:20 8.33 4.00-10.80 (K/uL) Final Segs 07/18/2024 08:10:20 73.9 40.0-75.0 (%) Final Lymphs % 07/18/2024 08:10:20 15.6 Below low normal 18.0-42.0 (%) Final Monos 07/18/2024 08:10:20 7.9 1.0-11.0 (%) Final Eosinophils 07/18/2024 08:10:20 0.8 0.0-6.0 (%) Final Basos 07/18/2024 08:10:20 0.2 0.0-2.0 (%) Final Immature Granulocyte, Percent 07/18/2024 08:10:20 1.6 0.0-2.0 (%) Final Absolute Segs 07/18/2024 08:10:20 6.15 1.80-7.70 (K/uL) Final Lymphs, absolute 07/18/2024 08:10:20 1.30 1.00-4.80 (K/ul) Final Monos, Abs 07/18/2024 08:10:20 0.66 0.00-1.10 (K/uL) Final Eos, Abs 07/18/2024 08:10:20 0.07 0.00-0.70 (K/uL) Final Basos, Abs 07/18/2024 08:10:20 0.02 0.00-0.20 (K/uL) Final Immature Granulocytes, Number 07/18/2024 08:10:20 0.13 0.00-0.20 (K/uL) Final Performing Location [place] [facility] [place] [address] [facility] [address]
--- OUTSIDE RECORDS SUMMARY | 2024-08-08 08:39 | External Medical Summary | Summary of Care ---
Author Name Unknown Organization [facility] Address [address] [place] [address] Phone [phone] Care Team Providers Care Supervisor Vendor Quality Name Role Phone Caroline Jc MD Primary Care Provid er Reason for Visit * Reason Comments Outpatient Testing Encounter Details Date Type Department Care Team (Late st Contact Info) Description 07/18/2024 7:50 AM EDT Laboratory Laboratory, [place] [address] [place] [phone] [place], [facility] [address] [place], [place] [id number] Antepartum anemia complicating Allergies Active Allergy Reactions Criticality Noted Date Comments Amoxicillin Hives High 07/28/2017 documented as of this encounter (statuses as of 07/18/2024) Medications Medication Sig Dispensed Refills Start Date [...] as of this encounter (statuses as of 07/18/2024) Active Problems Problem Noted Date Diagnosed Date [...] as of this encounter (statuses as of 07/18/2024) Immunizations Name Administration Dates Next Due COVID-19 mRNA, LNP-s, No Pre serve, 2-Dose Series ([employer]) 10/15/2021,03/16/2021,02/23/2021 Covid-19, Mrna, Lnp-s, Pf, B ivalent, 30 Mcg, IM, 12 yrs and above ([employer]) 09/09/2022 DTaP Dipth/Tet/Acell Pertussis (Infanrix), Peds 04/13/1998,06/08/1995,1994,05/10,1994 [...] money to get more. Never true 03/25/2024 [place] Depression Scale Answer Date Recorded [place] Depression Scale Total 1 06/17/2024 The thought [...] Care Team (Late st Contact Info) Description 07/22/2024 4:30 PM EDT Office Visit Gynecology/Obstetrics [facility] [address] [place] [address] Beth Prakash PA-C [address] [place] [address] 07/29/2024 1:30 PM EDT Office Visit Gynecology/Obstetrics [facility] [address] [place] [address] Lulú Boyce CRNP [address] [place] [address] 08/05/2024 11:30 AM EDT Office Visit Gynecology/Obstetrics [facility] [address] [place] [address] Beth Prakash PA-C [address] [place] [address] 08/08/2024 7:15 AM EDT Cardiac Studies [facility] [place] [address] 08/12/2024 11:30 AM EDT Office Visit Gynecology/Obstetrics [facility] [address] [place] [address] Beth Prakash PA-C [address] [place] [address] 11/21/2024 3:00 PM EST Telemedicine Hematology/Oncology [facility] [phone] Pamela Holliday CRNP [address] [facility] [place] [address] 12/03/2024 9:00 AM EST Telemedicine Cardiology, [place] [address] [place] [address] Louis Perez [facility] [place] [address] Pending Results Name Type Priority Associated Diagnoses Date /Time CBC WITH WBC DIFFERENTIAL Lab STAT Antepartum anemia complicating 07/18/2024 8:10 AM EDT FERRITIN Lab STAT Antepartum anemia complicating 07/18/2024 8:10 AM EDT IRON SCREEN, INCLUDING TIBC Lab STAT Antepartum anemia complicating 07/18/2024 8:10 AM EDT CBC Lab STAT Antepartum anemia complicating 07/18/2024 8:10 AM EDT DIFFERENTIAL, AUTOMATED Lab STAT Antepartum anemia complicating 07/18/2024 8:10 AM EDT Health Maintenance Due Date Last Done Comments Depression Screening 09/16/2023 09/16/2022 HPV/Co-Test 2024 COVID-19 Vaccine (2022- season) 2024 09/09/2022, 10/15/2021, 03/16/2021, Additional history [...] antepartum documented in this encounter Care Teams Supervisor Vendor Quality Relationship Specialty Start Date End Date Caroline Jc MD [address] [place] [address] PCP - General Family Medicine 03/02/22 documented as of this encounter
--- OUTSIDE RECORDS SUMMARY | 2024-08-08 08:39 | External Medical Summary ---
Author Name Unknown Address Unknown Organization K01:[facility] [address] [place] [address] Laboratory Report Ordering Provider Test Date Status NADIA DIAS 07/08/2024 07:43:24 Final Observation Date Value Abnormality Reference (Units ) Status SYNC LEUKOCYTES IN BLOOD BY AUTOMATED COUNT 07/08/2024 07:43:24 8.31 4.00-10.80 (K/uL) Final Segs 07/08/2024 07:43:24 73.5 40.0-75.0 (%) Final Lymphs % 07/08/2024 07:43:24 17.3 Below low normal 18.0-42.0 (%) Final Monos 07/08/2024 07:43:24 6.5 1.0-11.0 (%) Final Eosinophils 07/08/2024 07:43:24 1.0 0.0-6.0 (%) Final Basos 07/08/2024 07:43:24 0.4 0.0-2.0 (%) Final Immature Granulocyte, Percent 07/08/2024 07:43:24 1.3 0.0-2.0 (%) Final Absolute Segs 07/08/2024 07:43:24 6.11 1.80-7.70 (K/uL) Final Lymphs, absolute 07/08/2024 07:43:24 1.44 1.00-4.80 (K/ul) Final Monos, Abs 07/08/2024 07:43:24 0.54 0.00-1.10 (K/uL) Final Eos, Abs 07/08/2024 07:43:24 0.08 0.00-0.70 (K/uL) Final Basos, Abs 07/08/2024 07:43:24 0.03 0.00-0.20 (K/uL) Final Immature Granulocytes, Number 07/08/2024 07:43:24 0.11 0.00-0.20 (K/uL) Final Performing Location [facility]ORY [facility] - [address] [facility] [address]
--- OUTSIDE RECORDS SUMMARY | 2024-08-08 08:39 | External Medical Summary ---
Author Name Unknown Address Unknown Organization K01:[facility] [place] [address] [place] [address] Laboratory Report Ordering Provider Test Date Status NADIA DIAS 07/08/2024 07:43:24 Final Observation Date Value Abnormality Reference (Units ) Status Iron 07/08/2024 07:43:24 101 33-151 (ug /dL) Final Iron-binding capacity 07/08/2024 07:43:24 423 250-425 (ug/dL) Final Transferrin Sat % 07/08/2024 07:43:24 24 15 -55 (%) Final Performing Location [facility] - [address] [place] [address]
--- OUTSIDE RECORDS SUMMARY | 2024-08-08 08:39 | External Medical Summary | Summary of Care ---
Author Name Unknown Organization [facility] Address [address] [place] [address] Phone [phone] Care Team Providers Care Relaster Name Role Phone Caroline Jc MD Primary Care Provid er Reason for Visit * Reason Comments Infusion Venofer Encounter Details Date Type Department Care Team (Latest Contact Info) Description 07/22/2024 12:00 PM EDT Hem/Onc Treatment Hematology/Oncology Treatment, [place] [address] [place] [phone] Destiny, Chair 5 Hem Onc [facility] [address] [place] [address] Antepartum anemia complicating * Allergies Active Allergy Reactions Criticality Noted Date Comments Amoxicillin Hives High 07/28/2017 documented as of this encounter (statuses as of 07/25/2024) Medications Medication Sig Dispensed Refills Start Date [...] as of this encounter (statuses as of 07/25/2024) Active Problems Problem Noted Date Diagnosed Date [...] as of this encounter (statuses as of 07/25/2024) Immunizations Name Administration Dates Next Due COVID-19 mRNA, LNP-s, No Pre serve, 2-Dose Series ([employer]) 10/15/2021,03/16/2021,02/23/2021 Covid-19, Mrna, Lnp-s, Pf, B ivalent, 30 Mcg, IM, 12 yrs and above ([employer]) 09/09/2022 DTaP Dipth/Tet/Acell Pertussis (Infanrix), Peds 04/13/1998,06/08/1995,1994,05/10,1994 [...] money to get more. Never true 03/25/2024 [place] Depression Scale Answer Date Recorded [place] Depression Scale Total 1 06/17/2024 The thought [...] Sign Reading Time Taken Comments Blood Pressure 117/72 07/22/2024 12:51 PM EDT Pulse 92 07/22/2024 12:51 PM EDT Temperature 36.2 C (97.2 F) 07/22/2024 12:51 PM E DT Respiratory Rate 18 07/22/2024 12:51 PM EDT Oxygen Saturation 98% 07/22/2024 12:51 PM EDT Inhaled Oxygen Concentration - - Weight - - Height - - Body Mass Index - - documented in this encounter Nursing Notes * Kristi Capps LPN - 07/22/2024 12:51 PM EDT 1205: Pt arrived for Venofer infusion. PIV in RFA. Pt tolerated well. VSS. Benadryl given per order. Patient instructed on use of heat and massage functions where applicable. Patient shown how to operate the heat function of the chair and to alert nursing staff if the chair feels too warm. Patient i nstructed on the risk of potential ogden while using the heat function. Pt has no complaints at this time. 1520: Pt tolerated Venofer infusion well. PIV removed intact. Pt to return in one week. Discharged in stable condition. documented in this encounter Plan of Treatment Upcoming Encounters Date Type Department Care Team (Late st Contact Info) Description 07/29/2024 12:30 PM EDT Hem/Onc Treatment Hematology/Oncology Treatment, [place] [address] [place] [phone] Destiny Chair 9 Hem Onc [place] [address] [place] [address] 07/30/2024 1:30 PM EDT Office Visit Gynecology/Obstetrics Jeanette Parham [address] [place] [place] [address] Lluú Boyce CRNP [address] [place] [address] 08/05/2024 11:30 AM EDT Office Visit Gynecology/Obstetrics Jeanette Par[facility] [address] [place] [address] Beth Prakash PA-C [address] [place] [address] 08/12/2024 11:30 AM EDT Office Visit Gynecology/Obstetrics Jeanette Par[facility] [address] [place] [address] Beth Prakash PA-C [address] [place] [address] 09/19/2024 7:15 AM EST Cardiac Studies Cardiac Studies, Jeanette Parham [place] [address] [place] [address] 11/21/2024 3:00 PM EST Telemedicine Hematology/Oncology [place] [address] [place] [phone] Pamela Holliday CRNP [address] [facility] [place] [address] 12/03/2024 9:00 AM EST Telemedicine Cardiology, [place] [address] [place] [address] Louis Perez DO [address] [facility] [place] [address] Health Maintenance Due Date Last Done Comments [...] encounter Visit Diagnoses Diagnosis Antepartum anemia complicating - Primary Anemia, antepartum documented in this encounter Administered Medications Inactive Administered Medications - up to 3 most recent administrations Medication Order MAR Action Action Date Dose Rate Site diphenhydrAMINE (Benadryl) cap 25 mg 25 mg, Oral, ONCE, On Mon07/22/24 at 1230, For 1 dose Given 07/22/2024 12:07 PM EDT 25 mg Iron Sucrose (Venofer) 300 mg in NSS 250 mL ivpb 300 mg, IV Piggyback, ONCE, 1 dose, On Mon07/22/24 at 1430, Administer over 180 Minutes Start Infusion 07/22/2024 12:10 PM EDT 300 mg 90 mL/hr NSS infusion 500 mL, Intravenous, at 50 mL/hr, CONTINUOUS, Starting on Mon07/22/24 at 1300, Until Mon07/22/24 at 1629 Start Infusion 07/22/2024 12:08 PM EDT 500 mL 50 mL/hr documented in this encounter Care Teams Relaster Relationship Specialty Start Date End Date Caroline Jc MD [address] [place] [address] PCP - General Family Medicine 03/02/22 documented as of this encounter
--- OUTSIDE RECORDS SUMMARY | 2024-08-08 08:39 | External Medical Summary | Summary of Care ---
Author Name Unknown Organization [facility] Address [address] [facility] [place] [address] Phone [phone] Care Team Providers Care Chief Vendor Quality Name Role Phone Caroline Jc MD Primary Care Provid er Encounter Details Date Type Department Care Team (Late st Contact Info) Description 07/18/2024 Telephone Gynecology/Obstetrics [facility] 132 [facility] [place] [address] Eleni Dent PA-C [address] [place] [address] Allergies Active Allergy Reactions Criticality Noted Date Comments Amoxicillin Hives High 07/28/2017 documented as of this encounter (statuses as of 07/19/2024) Medications Medication Sig Dispensed Refills Start Date [...] by mouth in the morning. Active Breast PumpIndications:[place] st feeding status of mother Z39.1, GREG 08/12/24, double electric pump 1 Each 06/04/2024 Active documented as of this encounter (statuses as of 07/19/2024) Active Problems Problem Noted Date Diagnosed Date [...] as of this encounter (statuses as of 07/19/2024) Immunizations Name Administration Dates Next Due COVID-19 mRNA, LNP-s, No Pre serve, 2-Dose Series ([employer]) 10/15/2021,03/16/2021,02/23/2021 Covid-19, Mrna, Lnp-s, Pf, B ivalent, 30 Mcg, IM, 12 yrs and above ([place]) 09/09/2022 DTaP Dipth/Tet/Acell Pertussis (Infanrix), Peds 04/13/1998,06/08/1995,1994,05/10,1994 [...] money to get more. Never true 03/25/2024 [place] Depression Scale Answer Date Recorded [place] Depression Scale Total 1 06/17/2024 The thought [...] No 03/25/2024 Does the household have a [facility] source of income? (Household - for ages [...] encounter Miscellaneous Notes * Telephone Encounter - Miriam Keys LPN - 07/18/2024 8:26 AM EDT ----- Message from Eleni Dent sent at 07/18/2024 8:04 AM EDT ----- Please inform patient her GBS testing was negative. Thanks! Eleni Dent PA-C documented in this encounter Plan of Treatment Upcoming Encounters Date Type Department Care Team (Late st Contact Info) Description 07/22/2024 4:30 PM EDT Office Visit Gynecology/Obstetrics Jeanette Parham [address] [place] [address] Beth Prakash PA-C [address] [place] [address] 07/29/2024 1:30 PM EDT Office Visit Gynecology/Obstetrics [facility] [address] [place] [address] Lulú Boyce CRNP [address] [place] [address] 08/05/2024 11:30 AM EDT Office Visit Gynecology/Obstetrics [facility] [address] [place] [address] Beth Prakash PA-C [address] [place] [address] 08/08/2024 7:15 AM EDT Cardiac Studies Cardiac Studies, [facility] [address] [place] [address] 08/12/2024 11:30 AM EDT Office Visit Gynecology/Obstetrics [facility] [address] [place] [address] Beth Prakash PA-C [address] [place], [place] [address] 11/21/2024 3:00 PM EST Telemedicine Hematology/Oncology [facility] [phone] Pamela Hloliday CRNP [address] [place] [address] 12/03/2024 9:00 AM EST Telemedicine Cardiology, [place] [address] [place] [address] Louis Perez DO [address] [place] [address] Health Maintenance Due Date Last Done Comments Depression Screening 09/16/2023 09/16/2022 HPV/Co-Test 2024 COVID-19 Vaccine (24 season) 2024 09/09/2022, 10/15/2021, 03/16/2021, Additional history [...] filedocumented as of this encounter Care Teams Chief Vendor Quality Relationship Specialty Start Date End Date Caroline Jc MD [address] [place] [address] PCP - General Family Medicine 03/02/22 documented as of this encounter
--- OUTSIDE RECORDS SUMMARY | 2024-08-08 08:39 | External Medical Summary | Summary of Care ---
Author Name Unknown Organization [facility] Address [address] [place] [address] Phone [phone] Care Team Providers Care Room Worker Name Role Phone Caroline Jc MD Primary Care Provid er Reason for Visit * Reason Comments Return Visit Encounter Details Date Type Department Care Team (Late st Contact Info) Description 07/30/2024 1:30 PM EDT Office Visit Gynecology/Obstetric s Jeanette Parham [address] [place] [address] Lulú Boyce CRNP [address] [place] [address] Supervision of normal first , antepartum*; Antepartum anemia complicating Allergies Active Allergy Reactions Criticality Noted Date Comments Amoxicillin Hives High 07/28/2017 documented as of this encounter (statuses as of 07/30/2024) Medications Medication Sig Dispensed Refills Start Date [...] by mouth in the morning. Active Breast PumpIndications:[place] st feeding status of mother Z39.1, GREG 08/12/24, double electric pump 1 Each 06/04/2024 Active documented as of this encounter (statuses as of 07/30/2024) Active Problems Problem Noted Date Diagnosed Date [...] as of this encounter (statuses as of 07/30/2024) Immunizations Name Administration Dates Next Due COVID-19 mRNA, LNP-s, No Pre serve, 2-Dose Series ([employer]) 10/15/2021,03/16/2021,02/23/2021 Covid-19, Mrna, Lnp-s, Pf, B ivalent, 30 Mcg, IM, 12 yrs and above ([employer]) 09/09/2022 DTaP Dipth/Tet/Acell Pertussis (Infanrix), Peds 04/13/1998,06/08/1995,1994,05/10,1994 [...] money to get more. Never true 03/25/2024 [place] Depression Scale Answer Date Recorded [place] Depression Scale Total 1 06/17/2024 The thought [...] Sign Reading Time Taken Comments Blood Pressure 102/66 07/30/2024 1:18 PM EDT Pulse - - Temperature - - Respiratory Rate - - Oxygen Saturation - - Inhaled Oxygen Concentration - - Weight 55.8 kg (123 lb) 07/30/2024 1:18 PM EDT Height 157.5 cm (5' 2") 07/30/2024 1:18 PM EDT Body Mass Index 22.5 07/30/2024 1:18 PM EDT documented in this encounter Progress Notes * Lulú Boyce CRNP - 07/30/2024 1:48 PM EDT 38w1d Notes an odor to vaginal discharge today. No change in color, consistency, quantity. Denies itching, burning, and irritation. Advised to monitor for a few days and notify office of changes. She is pleased with that. Agreeable to scheduling IOL around 41w. Baby is active. Denies contractions, bleeding, LOF. TITA Tejeda documented in this encounter Nursing Notes * Lavinia Bettencourt LPN - 07/30/2024 1:31 PM EDT 38w1d Vaginal discharge has increased odor and appears yellow. documented in this encounter Plan of Treatment Upcoming Encounters Date Type Department Care Team (Late st Contact Info) Description 08/06/2024 11:15 AM EDT Office Visit Gynecology/Obstetrics Jeanette Parham [address] [place] [address] Lulú Boyce CRNP [address] [place] [address] 08/12/2024 11:30 AM EDT Office Visit Gynecology/Obstetrics Jeanette Parham [address] [place] [address] Beth Prakash PA-C [address] [place] [address] 09/19/2024 7:15 AM EST Cardiac Studies Cardiac Studies, Jeanette Parham, [place] [address] [place] [address] 11/21/2024 3:00 PM EST Telemedicine Hematology/Oncology [facility] [place] [facility] [phone] Pamela Holliday CRNP [address] [place] [address] 12/03/2024 9:00 AM EST Telemedicine Cardiology, [place] [address] [place] [address] Louis Perez DO [address] [place] [address] Health Maintenance Due Date Last Done Comments [...] antepartum documented in this encounter Care Teams Room Worker Relationship Specialty Start Date End Date Caroline Jc MD [address] [place] [facility] [place] [address] PCP - General Family Medicine 03/02/22 documented as of this encounter
--- OUTSIDE RECORDS SUMMARY | 2024-08-08 08:39 | External Medical Summary | Summary of Care ---
Author Name Unknown Organization [facility] Address [address] [place] [address] Phone [phone] Care Team Providers Care Logging Superintendent Name Role Phone Caroline Jc MD Primary Care Provid er Reason for Visit * Reason Comments Infusion Venofer Encounter Details Date Type Department Care Team (Latest Contact Info) Description 07/22/2024 12:00 PM EDT Hem/Onc Treatment Hematology/Oncology Treatment, [place] [address] [place] [phone] Destiny, Chair 5 Hem Onc [facility] 200 [place] [address] Antepartum anemia complicating * Allergies Active Allergy Reactions Criticality Noted Date Comments Amoxicillin Hives High 07/28/2017 documented as of this encounter (statuses as of 07/22/2024) Medications Medication Sig Dispensed Refills Start Date [...] by mouth in the morning. Active Breast PumpIndications:[place] st feeding status of mother Z39.1, GREG 08/12/24, double electric pump 1 Each 06/04/2024 Active documented as of this encounter (statuses as of 07/22/2024) Active Problems Problem Noted Date Diagnosed Date [...] as of this encounter (statuses as of 07/22/2024) Immunizations Name Administration Dates Next Due COVID-19 mRNA, LNP-s, No Pre serve, 2-Dose Series ([employer]) 10/15/2021,03/16/2021,02/23/2021 Covid-19, Mrna, Lnp-s, Pf, B ivalent, 30 Mcg, IM, 12 yrs and above ([employer]) 09/09/2022 DTaP Dipth/Tet/Acell Pertussis (Infanrix), Peds 04/13/1998,06/08/1995,1994,05/10,1994 [...] money to get more. Never true 03/25/2024 [place] Depression Scale Answer Date Recorded [place] Depression Scale Total 1 06/17/2024 The thought [...] Gynecology/Obstetrics Jeanette Parham [address] [place] [address] Beth Prakash PA-C [address] [place] [address] 07/29/2024 12:00 PM EDT Hem/Onc Treatment Hematology/Oncology Treatment, [place] [address] [place] [phone] Destiny, Chair 10 Hem Onc [place] [address] [place], [place] [address] 07/30/2024 1:30 PM EDT Office Visit Gynecology/Obstetrics Jeanette Parham [address] [place] [address] Lulú Boyce CRNP [address] [place] [address] 08/05/2024 11:30 AM EDT Office Visit Gynecology/Obstetrics Jeanette Parham [address] [place] [address] Beth Prakash PA-C [address] [place] [address] 08/08/2024 7:15 AM EDT Cardiac Studies Cardiac Studies, Jeanette Parham [place] [address] [place] [address] 08/12/2024 11:30 AM EDT Office Visit Gynecology/Obstetrics Jeanette Parham [address] [place] [address] Beth Prakash PA-C [address] [place] [address] 11/21/2024 3:00 PM EST Telemedicine Hematology/Oncology [facility] [place] [address] [place] [phone] Pamela Holliday CRNP 400 [facility] [place] [address] 12/03/2024 9:00 AM EST Telemedicine Cardiology, [place] [address] [place] [address] Louis Perez DO [address] [facility] [place] [address] Health Maintenance Due Date Last Done Comments [...] antepartum documented in this encounter Administered Medications Active Administered Medications - up to 3 most recent administrations Medication Order MAR Action Action Date Dose Rate Site diphenhydrAMINE (Benadryl) inj 50 mg 50 mg, IV Push, ONCE PRN Other, Hypersensitivity Reaction, Starting on Mon07/22/24 at 1159, Until Mon07/23/24 at 1158, For 24 hours EPINEPHrine 1 MG/ML inj 0.3 mg 0.3 mg, Intramuscular, ONCE PRN Other, Hypersensitivity Reaction or Anaphylaxis, Starting on Mon07/22/24 at 1159, Until Mon07/23/24 at 1158, For 24 hours hEParin 100 UNIT/ML Lock Flush inj 500 Units 500 Units (5 mL), IV Lock, PRN Other, IV Flush, Starting on Mon07/22/24 at 1159, Until Mon07/23/24 at 1158, For 24 hours, Do not flush if lock, PICC, or central line not in place; IV infusing or unable to flush. Hydrocortisone Sod Suc (PF) (Solu-Cortef) inj 100 mg 100 mg, IV Push, ONCE PRN Other, Hypersensitivity Reaction, Starting on Mon07/22/24 at 1159, Until Mon07/23/24 at 1158, For 24 hours NSS infusion 500 mL, Intravenous, at 50 mL/hr, CONTINUOUS, Starting on Mon07/22/24 at 1300, Until Mon07/22/24 at 2259 Start Infusion 07/22/2024 12:08 PM EDT 500 mL 50 mL/hr oxygen GAS Inhalation, OXYGEN, First dose on Mon07/22/24 at 1600, Until Discontinued, Device/Managed by: Low Flow Device, Goal SPO2 (%): 91-95, Starting Device: Nasal Cannula, Initial Flow Rate (LPM): 2, Lowest Support: Nasal Cannula: Flow 0-6 LPM. Titrate up/down by 1 LPM., Higher Support: Non-Rebreather (NRB) Mask: Minimum of 10 LPM. Titrate to maintain bag inflation., Titration Interval: Q2 minutes and as needed., Notify Provider: For sudden DECREASE in resting SPO2 to less than 85% and when escalating delivery device., Wean patient off Oxygen when the oxygen saturation is greater than or equal to 93% sodium chloride 0.9 % flush central line 10 mL 10 mL, IV Push, PRN Other, IV Flush, Starting on Mon07/22/24 at 1159, Until Mon07/23/24 at 1158, For 24 hours, Do not flush if lock, PICC, or central line not in place; IV infusing or unable to flush. Inactive Administered Medications - up to 3 [...] 12:10 PM EDT 300 mg 90 mL/hr documented in this encounter Care Teams Logging Superintendent Relationship Specialty Start Date End Date Caroline Jc MD [address] [place] [address] PCP - General Family Medicine 03/02/22 documented as of this encounter
--- OUTSIDE RECORDS SUMMARY | 2024-08-08 08:39 | External Medical Summary ---
Author Name Unknown Address Unknown Organization K01:[facility] [place] [address] [place] [address] Laboratory Report Ordering Provider Test Date Status NADIA DIAS 07/08/2024 07:43:24 Final Observation Date Value Abnormality Reference (Units ) Status WBC, Total 07/08/2024 07:43:24 8.31 4.00-10.80 (K/uL) Final RBC 07/08/2024 07:43:24 3.15 3.85-5.15 (M/uL) Final Hemoglobin 07/08/2024 07:43:24 9.8 Below low normal 12.0-15.3 (g/dL) Final HCT 07/08/2024 07:43:24 29.7 Below low normal 36.0-45.2 (%) Final MCV 07/08/2024 07:43:24 94.3 81.5-97.5 (fL) Final MCH 07/08/2024 07:43:24 31.1 27.0-34.0 (pg) Final MCHC 07/08/2024 07:43:24 33.0 32.0-36.0 (g/dL) Final RDW 07/08/2024 07:43:24 13.7 11.5-15.5 (%) Final Platelets 07/08/2024 07:43:24 191 140-400 (K/uL) Final MPV 07/08/2024 07:43:24 9.9 6.6-11.1 (fL) Final Nucleated erythrocytes/100 leukocytes [Ratio] in Blood by Automated count 07/08/2024 07:43:24 0 <=0 (/100 WBCs) Final Performing Location [facility] [place] [address] [place] [address]
--- OUTSIDE RECORDS SUMMARY | 2024-08-08 08:39 | External Medical Summary | Summary of Care ---
Author Name Unknown Organization [facility] Address [address] [place] [address] Phone [phone] Care Team Providers Care Document Analyst Name Role Phone Caroline Jc MD Primary Care Provid er Encounter Details Date Type Department Care Team (Late st Contact Info) Description 06/25/2024 Telephone Gynecology/Obstetrics [facility] [address] [place] [address] Yan York MD [address] [place] [address] Allergies Active Allergy Reactions Criticality Noted Date Comments Amoxicillin Hives High 07/28/2017 documented as of this encounter (statuses as of 06/25/2024) Medications Medication Sig Dispensed Refills Start Date [...] by mouth in the morning. Active Breast PumpIndications:[place] [address] feeding status of mother Z39.1, GREG 08/12/24, double electric pump 1 Each 06/04/2024 Active documented as of this encounter (statuses as of 06/25/2024) Active Problems Problem Noted Date Diagnosed Date [...] as of this encounter (statuses as of 06/25/2024) Immunizations Name Administration Dates Next Due COVID-19 mRNA, LNP-s, No Pre serve, 2-Dose Series ([employer]) 10/15/2021,03/16/2021,02/23/2021 Covid-19, Mrna, Lnp-s, Pf, B ivalent, 30 Mcg, IM, 12 yrs and above ([employer]) 09/09/2022 DTaP Dipth/Tet/Acell Pertussis (Infanrix), Peds 04/13/1998,06/08/1995,1994,05/10,1994 [...] money to get more. Never true 03/25/2024 [place] Depression Scale Answer Date Recorded [place] Depression Scale Total 1 06/17/2024 The thought [...] encounter Miscellaneous Notes * Telephone Encounter - Elida Beckwith OSA - 06/25/2024 2:44 PM EDT Returned call and patient is scheduled up to due date. * Telephone Encounter - Kristi Dixon RN - 06/25/2024 9:33 AM EDT Pt is calling to set up her weekly visits. Please call pt back at [phone]. documented in this encounter Plan of Treatment Upcoming Encounters Date Type Department Care Team (Late st Contact Info) Description 07/01/2024 3:45 PM EDT Office Visit Gynecology/Obstetrics [address] [place] [address] Cely Read DNP, CNM [address] [facility] [place] [address] 07/16/2024 3:30 PM EDT Office Visit Gynecology/Obstetrics [facility] [address] [place] [address] Eleni Dent PA-C [address] [facility] [place] [address] 07/22/2024 4:30 PM EDT Office Visit Gynecology/Obstetrics [facility] [address] [place] [address] Beth Prakash PA-C [address] [place] [address] 07/29/2024 1:30 PM EDT Office Visit Gynecology/Obstetrics [facility] [address] [place] [address] Lulú Boyce CRNP [address] [place] [address] 08/05/2024 11:30 AM EDT Office Visit Gynecology/Obstetrics [facility] [address] [place] [address] Beth Prakash PA-C [address] [place] [address] 08/08/2024 7:15 AM EDT Cardiac Studies Cardiac Studies, [facility] [address] [place] [address] 08/12/2024 11:30 AM EDT Office Visit Gynecology/Obstetrics [facility] [address] [place] [address] Beth Prakash PA-C [address] [place] [address] 11/21/2024 3:00 PM EST Telemedicine Hematology/Oncology [facility] [place] [address] [place], [place] [address] Pamela Holliday CRNP [address] [place] [address] 12/03/2024 9:00 AM EST Telemedicine [facility] [address] [place] [address] Louis Perez DO [address] [place] [place] [address] Health Maintenance Due Date Last Done Comments [...] filedocumented as of this encounter Care Teams Document Analyst Relationship Specialty Start Date End Date Caroline Jc MD [address] [place] [address] PCP - General Family Medicine 03/02/22 documented as of this encounter
--- OUTSIDE RECORDS SUMMARY | 2024-08-08 08:39 | External Medical Summary | Summary of Care ---
Author Name Unknown Organization [facility] Address [address] [place] [address] Phone [phone] Care Team Providers Care Chocolate Packer Name Role Phone Caroline Jc MD Primary Care Provid er Reason for Visit * Reason Comments Return Visit Encounter Details Date Type Department Care Team (Late st Contact Info) Description 07/22/2024 4:30 PM EDT Office Visit Gynecology/Obstetric s [facility] [address] [place] [address] Beth Prakash PA-C [address] [place] [address] Supervision of normal first , antepartum*; Antepartum [...] by mouth in the morning. Active Breast PumpIndications:[place] st feeding status of mother Z39.1, GREG [...] mRNA, LNP-s, No Pre serve, 2-Dose Series ([employer]) 10/15/2021,03/16/2021,02/23/2021 Covid-19, Mrna, Lnp-s, Pf, B ivalent, 30 Mcg, IM, 12 yrs and above (Bin1 ATE) 09/09/2022 DTaP Dipth/Tet/Acell Pertussis (Infanrix), Peds 04/13/1998,06/08/1995,1994,05/10,1994 [...] money to get more. Never true 03/25/2024 [place] Depression Scale Answer Date Recorded [place] Depression Scale Total 1 06/17/2024 The thought [...] Sign Reading Time Taken Comments Blood Pressure 106/58 07/22/2024 4:31 PM EDT Pulse - - Temperature - - Respiratory Rate - - Oxygen Saturation - - Inhaled Oxygen Concentration - - Weight 55.8 kg (123 lb) 07/22/2024 4:31 PM EDT Height - - Body Mass Index 22.5 06/17/2024 4:22 PM EDT documented in this encounter Progress Notes * Beth Prakash PA-C - 07/22/2024 4:46 PM EDT 37w0d Doing well. Denies LOF, VB. Pos fm. BH contractions. Reviewed labor precautions, given labor instructions/number. Asking about baby's position today -- cephalic with feet on maternal left. RTC in 1 week Beth Prakash PA-C * Autumn Ochoa CMA - 07/22/2024 4:31 PM EDT 37w0d ? Baby position documented in this encounter Plan of Treatment Upcoming Encounters Date Type Department Care Team (Late st Contact Info) Description 07/29/2024 12:00 PM EDT Hem/Onc Treatment [facility] [place] [address] [facility] [phone] Destiny, Chair [address] Hem Onc [address] [place] [address] 07/30/2024 1:30 PM EDT Office [facility] [address] [place] [address] Lulú Boyce CRNP [address] [place] [address] 08/05/2024 11:30 AM EDT Office Visit Gynecology/Obstetrics [facility] [address] [place] [address] Beth Prakash PA-C [address] [place] [address] 08/08/2024 7:15 AM EDT [facility] [address] [place] [address] 08/12/2024 11:30 AM EDT Office Visit Gynecology/Obstetrics [facility] [address] [place] [address] Beth Prakash PA-C [address] [place] [address] 11/21/2024 3:00 PM EST Telemedicine [facility]ematology[facility]On[facility] [place] [address] [facility], [place] [address] Pamela Holliday CRNP [address] [place] [address] 12/03/2024 9:00 AM EST Telemedicine [facility] [address] [place] [address] Louis Perez DO [address] [place] [place] [address] Health Maintenance Due Date Last Done Comments [...] antepartum documented in this encounter Care Teams Chocolate Packer Relationship Specialty Start Date End Date Caroline Jc MD [address] [facility] [place] [address] PCP - General Family Medicine 03/02/22 documented as of this encounter
--- OUTSIDE RECORDS SUMMARY | 2024-08-08 08:39 | External Medical Summary | Summary of Care ---
Author Name Unknown Organization [facility] Address [address] [place] [address] Phone [phone] Care Team Providers Care Research Geologist Name Role Phone Caroline Jc MD Primary Care Provid er Reason for Visit * Reason Comments Return Visit Encounter Details Date Type Department Care Team (Late st Contact Info) Description 07/01/2024 3:45 PM EDT Office Visit Gynecology/Obstetric s [facility] [address] [facility] [place] [address] Cely Read, DNP, CNM [address] [facility] [phone] Supervision of normal first , antepartum*; Antepartum anemia complicating Allergies Active Allergy Reactions Criticality Noted Date Comments Amoxicillin Hives High 07/28/2017 documented as of this encounter (statuses as of 07/01/2024) Medications Medication Sig Dispensed Refills Start Date [...] by mouth in the morning. Active Breast PumpIndications:[place] st feeding status of mother Z39.1, GREG 08/12/24, double electric pump 1 Each 06/04/2024 Active documented as of this encounter (statuses as of 07/01/2024) Active Problems Problem Noted Date Diagnosed Date [...] as of this encounter (statuses as of 07/01/2024) Immunizations Name Administration Dates Next Due COVID-19 mRNA, LNP-s, No Pre serve, 2-Dose Series ([employer]) 10/15/2021,03/16/2021,02/23/2021 Covid-19, Mrna, Lnp-s, Pf, B ivalent, 30 Mcg, IM, 12 yrs and above ([employer]) 09/09/2022 DTaP Dipth/Tet/Acell Pertussis (Infanrix), Peds 04/13/1998,06/08/1995,1994,05/10,1994 [...] money to get more. Never true 03/25/2024 [place] Depression Scale Answer Date Recorded [place] Depression Scale Total 1 06/17/2024 The thought [...] Sign Reading Time Taken Comments Blood Pressure 104/60 07/01/2024 3:43 PM EDT Pulse - - Temperature - - Respiratory Rate - - Oxygen Saturation - - Inhaled Oxygen Concentration - - Weight 54.4 kg (120 lb) 07/01/2024 3:43 PM EDT Height - - Body Mass Index 21.95 06/17/2024 4:22 PM EDT documented in this encounter Progress Notes * Cely Read, NICHOLAS, CNM - 07/01/2024 3:50 PM EDT Rubia Umana is a 29 year old female here for her routine OB appointment at 34w0d Her Estimated Date of Delivery: 08/12/24 REVIEW OF SYSTEMS: She affirms movement. Denies vaginal bleeding, LOF, contractions, N/V, headaches. CBE and classes done online. Has noted increased vaginal discharge, denies itching, burning irritation or odor. Considering Mirena IUD for pp contraception. PHYSICAL EXAM: Filed Vitals: 07/01/24 1543 BP: 104/60 Weight: 54.4 kg (120 lb) ASSESSMENT/PLAN: (Z34.00) Supervision of normal first , antepartum (primary encounter diagnosis) Plan: (O99.019) Antepartum anemia complicating Plan: Saw hematology, had 4 Venofer infusions in early , now on B12. 8/8 hgb 9.9, doing monthly blood work with hematology Supervision of - recommended Covid vaccine due to increased risk of severe disease in . Patient up to date. - discussed GBS and to expect swab to be complete at next visit - labor precautions and kick counts reviewed - RTO in 2 weeks Cely Read DNP, WEST documented in this encounter Plan of Treatment Upcoming Encounters Date Type Department Care Team (Late st Contact Info) Description 07/16/2024 3:30 PM EDT [facility] [address] [place] [address] Eleni Dent PA-C [address] [place] [address] [place] [address] 07/22/2024 4:30 PM EDT Office [facility] [address] [place] [address] Beth Prakash PA-C [address] [place] [address] 07/29/2024 1:30 PM EDT Office [facility] [address] [place] [address] Lulú Boyce CRNP [address] [place] [address] 08/05/2024 11:30 AM EDT Office Visit Gynecology/Obstetrics [facility] [address] [facility] [place] [address] Beth Prakash PA-C [address] [place] [address] 08/08/2024 7:15 AM EDT Cardiac Studies Cardiac Studies, [facility] [address] [facility] [place] [address] 08/12/2024 11:30 AM EDT Office Visit Gynecology/Obstetrics [facility] [address] [place] [address] Beth Prakash PA-C [address] [place] [address] 11/21/2024 3:00 PM EST Telemedicine Hematology/Oncology [facility] [address] [facility], [place] [phone] Pamela Holliday CRNP 400 [facility] [place] [address] 12/03/2024 9:00 AM EST Telemedicine Cardiology, [place] [address] [place] [address] Louis Perez DO [address] [facility] [place] [address] Health Maintenance Due Date Last Done Comments [...] antepartum documented in this encounter Care Teams Research Geologist Relationship Specialty Start Date End Date Caroline Jc MD [address] [place] [address] PCP - General Family Medicine 03/02/22 documented as of this encounter
--- OUTSIDE RECORDS SUMMARY | 2024-08-08 08:39 | External Medical Summary ---
Author Name Unknown Address Unknown Organization K01:[facility]ORY [facility] [place] [address] [place] [address] Laboratory Report Ordering Provider Test Date Status NADIA DIAS 07/08/2024 07:43:24 Final Observation Date Value Abnormality Reference (Units ) Status Ferritin 07/08/2024 07:43:24 67 13-150 (ng /mL) Final Performing Location LABORATORY [facility] - [address] [place] [address]
--- OUTSIDE RECORDS SUMMARY | 2024-08-08 08:39 | External Medical Summary ---
Author Name Unknown Address Unknown Organization K01:[facility]ORY [facility] [place] [address] [place] [address] Laboratory Report Ordering Provider Test Date Status NADIA DIAS 07/18/2024 08:10:20 Final Observation Date Value Abnormality Reference (Units ) Status Iron 07/18/2024 08:10:20 84 33-151 (ug/dL) Final Iron-binding capacity 07/18/2024 08:10:20 448 Above high normal 250-425 (ug/dL) Final Transferrin Sat % 07/18/2024 08:10:20 19 15-55 (%) Final Performing Location LABORATORY [facility] [place] - [address] [place] [address]
--- OUTSIDE RECORDS SUMMARY | 2024-08-08 08:39 | External Medical Summary | Summary of Care ---
Author Name Unknown Organization [facility] Address [address] [place] [address] Phone [phone] Care Team Providers Care Wafer Fabrication Operator Name Role Phone Caroline Jc MD Primary Care Provid er Reason for Visit * Reason Comments IV Therapy Venofer Encounter Details Date Type Department Care Team (Latest Contact Info) Description 07/29/2024 12:30 PM EDT Hem/Onc Treatment Hematology/Oncology Treatment, [place] [address] [place] [address] Destiny, Chair [address] Hem Onc [address] [place] [address] Antepartum anemia complicating * Allergies Active Allergy Reactions Criticality Noted Date Comments Amoxicillin Hives High 07/28/2017 documented as of this encounter (statuses as of 07/29/2024) Medications Medication Sig Dispensed Refills Start Date [...] by mouth in the morning. Active Breast PumpIndications:[place] st feeding status of mother Z39.1, GREG 08/12/24, double electric pump 1 Each 06/04/2024 Active documented as of this encounter (statuses as of 07/29/2024) Active Problems Problem Noted Date Diagnosed Date [...] as of this encounter (statuses as of 07/29/2024) Immunizations Name Administration Dates Next Due COVID-19 mRNA, LNP-s, No Pre serve, 2-Dose Series ([employer]) 10/15/2021,03/16/2021,02/23/2021 Covid-19, Mrna, Lnp-s, Pf, B ivalent, 30 Mcg, IM, 12 yrs and above ([employer]) 09/09/2022 DTaP Dipth/Tet/Acell Pertussis (Infanrix), Peds 04/13/1998,06/08/1995,1994,05/10,1994 [...] Date Smoking Tobacco: Never Smokeless Tobacco: Never Tobacco Cessation:Counseling Given: Not Answered Alcohol Use Standard Drinks/Week Comments Not Currently [...] money to get more. Never true 03/25/2024 [place] Depression Scale Answer Date Recorded [place] Depression Scale Total 1 06/17/2024 The thought [...] Sign Reading Time Taken Comments Blood Pressure 115/72 07/29/2024 12:40 PM EDT Pulse 82 07/29/2024 12:40 PM EDT Temperature 36.8 C (98.3 F) 07/29/2024 12:40 PM E DT Respiratory Rate 16 07/29/2024 12:40 PM EDT Oxygen Saturation 99% 07/29/2024 12:40 PM EDT Inhaled Oxygen Concentration - - Weight - - Height - - Body Mass Index - - documented in this encounter Nursing Notes * Theresa Lala LPN - 07/29/2024 12:41 PM EDT Patient arrived chair 2 for IV therapy Venofer. Vital signs are stable. IV access successful at theright antecubital vein. IV line flushed with ease; positive blood return; IV fluids connected and infusing. Benadryl 25mg capsule administered orally per standing order. Call wan within reach. Patient instructed on use of heat and massage functions where applicable. Patient shown how to operate the heat function of the chair and to alert nursing staff if the chair feels too warm. Patient instructed on the risk of potential ogden while using the heat function. 1555 - Patient completed IV therapy. IV access was discontinued; site was cleaned and bandaged. Patient was discharged in stable condition. documented in this encounter Plan of Treatment Upcoming Encounters Date Type Department Care Team (Late st Contact Info) Description 07/30/2024 1:30 PM EDT Office Visit Gynecology/Obstetrics [facility] [facility] [address] [place] [address] Lulú Boyce CRNP [address] [place] [address] 08/06/2024 11:15 AM EDT Office Visit Gynecology/Obstetrics [facility] [address] [place] [address] Lulú Boyce CRNP [address] [place] [address] 08/12/2024 11:30 AM EDT Office Visit Gynecology/Obstetrics [facility] [address] [place] [address] Beth Prakash PA-C [address] [place] [address] 09/19/2024 7:15 AM EST Cardiac Studies Cardiac Studies, [facility] [address] [place] [address] 11/21/2024 3:00 PM EST Telemedicine Hematology/Oncology [place] [address] [facility] [phone] Pamela Holliday CRNP [address] [place] [address] 12/03/2024 9:00 AM EST Telemedicine Cardiology, [place] [address] [place] [place] [address] Louis Perez DO [address] [place] [address] Health Maintenance Due Date Last Done Comments [...] Additional history exists HPV (Gardasil) Vaccine Completed , 02/22/2012, 08/02/2011, Additional history exists Influenza Vaccine [...] ONCE PRN Other, Hypersensitivity Reaction, Starting on Mon07/29/24 at 1224, Until Mon07/30/24 at 1223, For 24 hours EPINEPHrine 1 MG/ML inj 0.3 mg 0.3 mg, Intramuscular, ONCE PRN Other, Hypersensitivity Reaction or Anaphylaxis, Starting on Mon07/29/24 at 1224, Until Mon07/30/24 at 1223, For 24 hours hEParin 100 UNIT/ML Lock Flush inj 500 Units 500 Units (5 mL), IV Lock, PRN Other, IV Flush, Starting on Mon07/29/24 at 1224, Until Mon07/30/24 at 1223, For 24 hours, Do not flush if lock, PICC, or central line not in place; IV infusing or unable to flush. Hydrocortisone Sod Suc (PF) (Solu-Cortef) inj 100 mg 100 mg, IV Push, ONCE PRN Other, Hypersensitivity Reaction, Starting on Mon07/29/24 at 1224, Until Mon07/30/24 at 1223, For 24 hours NSS infusion 500 mL, Intravenous, at 50 mL/hr, CONTINUOUS, Starting on Mon07/29/24 at 1330, Until Mon07/29/24 at 2329 Start Infusion 07/29/2024 12:37 PM EDT 500 mL 50 mL/hr oxygen GAS Inhalation, OXYGEN, First dose on Mon07/29/24 at 1600, Until Discontinued, Device/Managed by: Low [...] Push, PRN Other, IV Flush, Starting on Mon07/29/24 at 1224, Until Mon07/30/24 at 1223, For 24 hours, Do not flush if lock, PICC, or central line not in place; IV infusing or unable to flush. Inactive Administered Medications - up to 3 most recent administrations Medication Order MAR Action Action Date Dose Rate Site diphenhydrAMINE (Benadryl) cap 25 mg 25 mg, Oral, ONCE, On Mon07/29/24 at 1300, For 1 dose Given 07/29/2024 12:38 PM EDT 25 mg Iron Sucrose (Venofer) 300 mg in NSS 250 mL ivpb 300 mg, IV Piggyback, ONCE, 1 dose, On Mon07/29/24 at 1500, Administer over 180 Minutes Start Infusion 07/29/2024 12:39 PM EDT 300 mg 90 mL/hr documented in this encounter Care Teams Wafer Fabrication Operator Relationship Specialty Start Date End Date Caroline Jc MD [address] [place] [address] PCP - General Family Medicine 03/02/22 documented as of this encounter
--- OUTSIDE RECORDS SUMMARY | 2024-08-08 08:40 | External Medical Summary ---
Author Name Unknown Address Unknown Organization K01:LABORATORY [facility] [place] - [address] [place] [address] [place] [address] Laboratory Report Ordering Provider Test Date Status NADIA DIAS 06/19/2024 07:53:27 Final Observation Date Value Abnormality Reference (Units ) Status WBC, Total 06/19/2024 07:53:27 8.12 4.00-10.80 (K/uL) Final RBC 06/19/2024 07:53:27 3.19 3.85-5.15 (M/uL) Final Hemoglobin 06/19/2024 07:53:27 9.9 Below low normal 12.0-15.3 (g/dL) Final HCT 06/19/2024 07:53:27 29.9 Below low normal 36.0-45.2 (%) Final MCV 06/19/2024 07:53:27 93.7 81.5-97.5 (fL) Final MCH 06/19/2024 07:53:27 31.0 27.0-34.0 (pg) Final MCHC 06/19/2024 07:53:27 33.1 32.0-36.0 (g/dL) Final RDW 06/19/2024 07:53:27 14.1 11.5-15.5 (%) Final Platelets 06/19/2024 07:53:27 199 140-400 (K/uL) Final MPV 06/19/2024 07:53:27 10.3 6.6-11.1 (fL) Final Nucleated erythrocytes/100 leukocytes [Ratio] in Blood by Automated count 06/19/2024 07:53:27 0 <=0 (/100 WBCs) Final Performing Location LABORATORY [facility] [place] - [address] [place] [address]
--- OUTSIDE RECORDS SUMMARY | 2024-08-08 08:40 | External Medical Summary ---
Author Name Unknown Address Unknown Organization K01:LABORATORY [facility] [place] - [address] [place] [address] Laboratory Report Ordering Provider Test Date Status NADIA DIAS 06/04/2024 13:53:49 Final Observation Date Value Abnormality Reference (Units ) Status Ferritin 06/04/2024 13:53:49 116 13-150 (ng /mL) Final Performing Location LABORATORY [facility] - [address] [place] [address]
--- OUTSIDE RECORDS SUMMARY | 2024-08-08 08:40 | External Medical Summary | Summary of Care ---
Author Name Unknown Organization [facility] Address [address] [place] [address] Phone [phone] Care Team Providers Care Manager Shift Name Role Phone Caroline Jc MD Primary Care Provid er Reason for Visit * Reason Comments Outpatient Testing Encounter Details Date Type Department Care Team (Late st Contact Info) Description 06/19/2024 7:50 AM EDT Laboratory Laboratory, [place] [address] [place] [phone] [place] [address], [place] [phone] Antepartum anemia complicating Allergies Active Allergy Reactions Criticality Noted Date Comments Amoxicillin Hives High 07/28/2017 documented as of this encounter (statuses as of 06/19/2024) Medications Medication Sig Dispensed Refills Start Date [...] by mouth in the morning. Active Breast PumpIndications:[place] st feeding status of mother Z39.1, GREG 08/12/24, double electric pump 1 Each 06/04/2024 Active documented as of this encounter (statuses as of 06/19/2024) Active Problems Problem Noted Date Diagnosed Date [...] as of this encounter (statuses as of 06/19/2024) Immunizations Name Administration Dates Next Due COVID-19 mRNA, LNP-s, No Pre serve, 2-Dose Series ([employer]) 10/15/2021,03/16/2021,02/23/2021 Covid-19, Mrna, Lnp-s, Pf, B ivalent, 30 Mcg, IM, 12 yrs and above ([employer]) 09/09/2022 DTaP Dipth/Tet/Acell Pertussis (Infanrix), Peds 04/13/1998,06/08/1995,1994,05/10,1994 [...] money to get more. Never true 03/25/2024 [place] Depression Scale Answer Date Recorded [place] Depression Scale Total 1 06/17/2024 The thought [...] 07/01/2024 3:45 PM EDT Office Visit Gynecology/Obstetrics Jeanette Dejesuss [address] [place] [address] Cely Read, NICHOLAS, CNM [address] [place] [address] 07/16/2024 3:30 PM EDT Office Visit Gynecology/Obstetrics Jeanette Parham [address] [place] [address] Eleni Dent PA-C [address] [place] [phone] 08/08/2024 7:15 AM EDT Cardiac Studies Cardiac Studies, [facility] [address] [place] [address] 11/21/2024 3:00 PM EST Telemedicine Hematology/Oncology [facility] [address] [facility] [phone] Pamela Holliday CRNP [address] [place] [address] 12/03/2024 9:00 AM EST Telemedicine Cardiology, [place] [address] [place] [address] Louis Perez DO [address] [place] [phone] Pending Results Name Type Priority Associated Diagnoses Date /Time CBC WITH WBC DIFFERENTIAL Lab STAT Antepartum anemia complicating 06/19/2024 7:53 AM EDT IRON SCREEN, INCLUDING TIBC Lab STAT Antepartum anemia complicating 06/19/2024 7:53 AM EDT FERRITIN Lab STAT Antepartum anemia complicating 06/19/2024 7:53 AM EDT CBC Lab STAT Antepartum anemia complicating 06/19/2024 7:53 AM EDT DIFFERENTIAL, AUTOMATED Lab STAT Antepartum anemia complicating 06/19/2024 7:53 AM EDT Health Maintenance Due Date Last [...] documented in this encounter Care Teams Manager Shift Relationship Specialty Start Date End Date Caroline Jc MD [address] [place] [address] PCP - General Family Medicine 03/02/22 documented as of this encounter
--- OUTSIDE RECORDS SUMMARY | 2024-08-08 08:40 | External Medical Summary | Summary of Care ---
Author Name Unknown Organization [facility] Address [address] [place] [address] Phone [phone] Care Team Providers Care Semaphore Operator Name Role Phone Caroline Jc MD Primary Care Provid er Reason for Visit * Reason Onset Date Comments Test Results Lab 06/20/2024 Encounter Details Date Type Department Care Team (Late st Contact Info) Description 06/20/2024 Telephone Hematology/Oncology [facility] Destiny [place] [address] [facility] [place] [phone] [facility] Cosby [facility] [address] Test Results Lab Allergies Active Allergy Reactions Criticality Noted Date Comments Amoxicillin Hives High 07/28/2017 documented as of this encounter (statuses as of 06/20/2024) Medications Medication Sig Dispensed Refills Start Date [...] as of this encounter (statuses as of 06/20/2024) Active Problems Problem Noted Date Diagnosed Date [...] as of this encounter (statuses as of 06/20/2024) Immunizations Name Administration Dates Next Due COVID-19 mRNA, LNP-s, No Pre serve, 2-Dose Series ([employer]) 10/15/2021,03/16/2021,02/23/2021 Covid-19, Mrna, Lnp-s, Pf, B ivalent, 30 Mcg, IM, 12 yrs and above ([employer]) 09/09/2022 DTaP Dipth/Tet/Acell Pertussis (Infanrix), Peds 04/13/1998,06/08/1995,1994,05/10,1994 [...] money to get more. Never true 03/25/2024 [place] Depression Scale Answer Date Recorded [place] Depression Scale Total 1 06/17/2024 The thought [...] encounter Miscellaneous Notes * Telephone Encounter - Gabrielle Prakash LPN - 06/20/2024 11:16 AM EDT My G sent. * Telephone Encounter - Gabrielle Prakash LPN - 06/20/2024 11:13 AM EDT ----- Message from Pamela Holliday sent at 06/20/2024 10:47 AM EDT ----- Hgb and iron studies stable. Continue monthly labs. documented in this encounter Plan of Treatment Upcoming Encounters Date Type Department Care Team (Late st Contact Info) Description 07/01/2024 3:45 PM EDT Office Visit Gynecology/Obstetrics [facility] [address] [facility] [place] [address] Cely Read, DNP, CNM [address] [facility] [place] [address] 07/16/2024 3:30 PM EDT Office Visit Gynecology/Obstetrics [facility] [address] [facility] [place] [address] Eleni Dent PA-C [address] [facility] [place] [address] 08/08/2024 7:15 AM EDT Cardiac Studies Cardiac Studies, [facility] [address] [facility] [place] [address] 11/21/2024 3:00 PM EST Telemedicine Hematology/Oncology [facility] 200 [facility], [place] [phone] Pamela Holliday CRNP 400 [facility] [place] [address] 12/03/2024 9:00 AM EST Telemedicine Cardiology, [place] [address] [place] [address] Louis Perez DO [address] [facility] [place] [address] Health Maintenance Due Date Last Done Comments [...] filedocumented as of this encounter Care Teams Semaphore Operator Relationship Specialty Start Date End Date Caroline Jc MD [address] [place] [address] PCP - General Family Medicine 03/02/22 documented as of this encounter
--- OUTSIDE RECORDS SUMMARY | 2024-08-08 08:40 | External Medical Summary | Summary of Care ---
Author Name Unknown Organization [facility] Address [address] [place] [address] Phone [phone] Care Team Providers Care Friction Paint Machine Tender Name Role Phone Caroline Jc MD Primary Care Provid er Reason for Visit * Reason Comments Return Visit Encounter Details Date Type Department Care Team (Late st Contact Info) Description 06/17/2024 4:30 PM EDT Office Visit Gynecology/Obstetric s Jeanette Parham [address] [place] [address] Beth Prakash PA-C [address] [place] [address] Supervision of normal first , antepartum*; Antepartum anemia complicating Allergies Active Allergy Reactions Criticality Noted Date Comments Amoxicillin Hives High 07/28/2017 documented as of this encounter (statuses as of 06/17/2024) Medications Medication Sig Dispensed Refills Start Date [...] by mouth in the morning. Active Breast PumpIndications:[place] st feeding status of mother Z39.1, GREG 08/12/24, double electric pump 1 Each 06/04/2024 Active documented as of this encounter (statuses as of 06/17/2024) Active Problems Problem Noted Date Diagnosed Date [...] as of this encounter (statuses as of 06/17/2024) Immunizations Name Administration Dates Next Due COVID-19 mRNA, LNP-s, No Pre serve, 2-Dose Series ([employer]) 10/15/2021,03/16/2021,02/23/2021 Covid-19, Mrna, Lnp-s, Pf, B ivalent, 30 Mcg, IM, 12 yrs and above ([employer]) 09/09/2022 DTaP Dipth/Tet/Acell Pertussis (Infanrix), Peds 04/13/1998,06/08/1995,1994,05/10,1994 [...] money to get more. Never true 03/25/2024 [place] Depression Scale Answer Date Recorded [place] Depression Scale Total 2 01/25/2024 The thought of harming myself has occurred to me . Never 01/25/2024 Childcare Answer Date Recorded Do you feel [...] Sign Reading Time Taken Comments Blood Pressure 108/58 06/17/2024 4:22 PM EDT Pulse - - Temperature - - Respiratory Rate - - Oxygen Saturation - - Inhaled Oxygen Concentration - - Weight 53.1 kg (117 lb) 06/17/2024 4:22 PM EDT Height 157.5 cm (5' 2") 06/17/2024 4:22 PM EDT Body Mass Index 21.4 06/17/2024 4:22 PM EDT documented in this encounter Progress Notes * Beth Prakash PA-C - 06/17/2024 4:38 PM EDT 32w0d Would like flu vaccine when available. Denies concerns, first time seeing patient. Denies LOF, VB, contractions. Baby is active. RTC in 2 weeks Beth Prakash PA-C documented in this encounter Nursing Notes * Lavinia Bettencourt LPN - 06/17/2024 4:26 PM EDT 32w0d Denies concerns documented in this encounter Plan of Treatment Upcoming Encounters Date Type Department Care Team (Late st Contact Info) Description 06/19/2024 7:50 AM EDT Laboratory Laboratory, [place] [address] [place] [phone] [facility] [address] [place] [address] 07/01/2024 3:45 PM EDT Office Visit Gynecology/Obstetrics [facility] 132 [facility] [place] [address] Cely Read DNP, CNM [address] [place] [address] 07/16/2024 3:30 PM EDT Office Visit Gynecology/Obstetrics [facility] 132 [facility] [place] [address] Eleni Dent PA-C [address] [place] [address] 08/08/2024 7:15 AM EDT Cardiac Studies Cardiac Studies, [facility] 132 [facility] [place] [address] 11/21/2024 3:00 PM EST Telemedicine Hematology/Oncology [facility] [address] [facility] [phone] Pamela Holliday CRNP [address] [place] [address] 12/03/2024 9:00 AM EST Telemedicine CardiologyPablo [address] [place] [address] Louis Perez, [address] [place] [place] [address] Health Maintenance Due Date Last Done Comments COVID-19 Vaccine (2022- season) 2023 09/09/2022, 10/15/2021, 03/16/2021, Additional history [...] antepartum documented in this encounter Care Teams Friction Paint Machine Tender Relationship Specialty Start Date End Date Caroline Jc MD [address] [place] [address] PCP - General Family Medicine 03/02/22 documented as of this encounter
--- OUTSIDE RECORDS SUMMARY | 2024-08-08 08:40 | External Medical Summary ---
Author Name Unknown Address Unknown Organization [id number]:[facility] - [address] [place] [address] Laboratory Report Ordering Provider Test Date Status NADIA DIAS 06/04/2024 13:53:49 Final Observation Date Value Abnormality Reference (Units ) Status WBC, Total 06/04/2024 13:53:49 7.34 4.00-10.8 0 (K/uL) Final RBC 06/04/2024 13:53:49 3.14 3.85-5.15 (M/uL) Final Hemoglobin 06/04/2024 13:53:49 9.6 Below low normal 12 .0-15.3 (g/dL) Final HCT 06/04/2024 13:53:49 28.8 Below low normal 36. 0-45.2 (%) Final MCV 06/04/2024 13:53:49 91.7 81.5-97.5 (fL) Final MCH 06/04/2024 13:53:49 30.6 27.0-34.0 (pg) Final MCHC 06/04/2024 13:53:49 33.3 32.0-36.0 (g/dL) Final RDW 06/04/2024 13:53:49 14.9 11.5-15.5 (%) Final Platelets 06/04/2024 13:53:49 224 140-400 (K /uL) Final MPV 06/04/2024 13:53:49 9.4 6.6-11.1 ( fL) Final Performing Location [facility] - [address] [place] [address]
--- OUTSIDE RECORDS SUMMARY | 2024-08-08 08:40 | External Medical Summary ---
Author Name Unknown Address Unknown Organization [id number]:LABORATORY [facility] - [address] [place] [address] Laboratory Report Ordering Provider Test Date Status NADIA DIAS 06/19/2024 07:53:27 Final Observation Date Value Abnormality Reference (Units ) Status Iron 06/19/2024 07:53:27 88 33-151 (ug /dL) Final Iron-binding capacity 06/19/2024 07:53:27 407 250-425 (ug/dL) Final Transferrin Sat % 06/19/2024 07:53:27 22 15 -55 (%) Final Performing Location [facility] - [address] [place] [place] [address]
--- OUTSIDE RECORDS SUMMARY | 2024-08-08 08:40 | External Medical Summary ---
Author Name Unknown Address Unknown Organization [id number]:[facility]ATORY [facility] - [address] [place] [address] Laboratory Report Ordering Provider Test Date Status NADIA DIAS 06/04/2024 13:53:49 Final Observation Date Value Abnormality Reference (Units ) Status Vitamin B12 06/04/2024 13:53:49 [phone] (pg/mL) Final Performing Location [facility] - [address] [place] [address]
--- OUTSIDE RECORDS SUMMARY | 2024-08-08 08:40 | External Medical Summary | Summary of Care ---
Author Name Unknown Organization [facility] Address [address] [place] [address] Phone [phone] Care Team Providers Care Bromination Equipment Operator Name Role Phone Caroline Jc MD Primary Care Provid er Reason for Visit * Reason Comments Return Visit Encounter Details Date Type Department Care Team (Late st Contact Info) Description 06/04/2024 1:30 PM EDT Office Visit Gynecology/Obstetric s Jeanette Parham [address] [place] [address] Gabrielle Hinojosa CRNP [address] [place] [address] Supervision of normal first , antepartum*; Antepartum anemia complicating ; Breast feeding status of mother Allergies Active Allergy Reactions Criticality Noted Date Comments Amoxicillin Hives High 07/28/2017 documented as of this encounter (statuses as of 06/04/2024) Medications Medication Sig Dispensed Refills Start Date [...] by mouth in the morning. Active Breast PumpIndications:[place] st feeding status of mother Z39.1, GREG 08/12/24, double electric pump 1 Each 06/04/2024 Active documented as of this encounter (statuses as of 06/04/2024) Active Problems Problem Noted Date Diagnosed Date [...] as of this encounter (statuses as of 06/04/2024) Immunizations Name Administration Dates Next Due COVID-19 mRNA, LNP-s, No Pre serve, 2-Dose Series ([employer]) 10/15/2021,03/16/2021,02/23/2021 Covid-19, Mrna, Lnp-s, Pf, B ivalent, 30 Mcg, IM, 12 yrs and above ([employer]) 09/09/2022 DTaP Dipth/Tet/Acell Pertussis (Infanrix), Peds 04/13/1998,06/08/1995,1994,05/10,1994 [...] money to get more. Never true 03/25/2024 [place] Depression Scale Answer Date Recorded [place] Depression Scale Total 2 01/25/2024 The thought [...] Reading Time Taken Comments Blood Pressure 104/60 06/04/2024 1:31 PM EDT Pulse - - Temperature - - Respiratory Rate - - Oxygen Saturation - - Inhaled Oxygen Concentration - - Weight 52.6 kg (116 lb) 06/04/2024 1:31 PM EDT Height - - Body Mass Index 21.22 05/30/2024 2:05 PM EDT documented in this encounter Progress Notes * Marta Ding LPN - 06/04/2024 1:30 PM EDT 30w1d Denies vaginal bleeding/rom + movement Coamo walker Discuss and current medications * Garbielle Hinojosa CRNP - 06/04/2024 1:27 PM EDT 30w1d Baby moving well. No regular ctx, some BH (2/hr max). No leaking/bleeding. Reports some mid lateralR abdominal pain; had this pre-, feels it is increasing with . Not noted until later in the day. BP normal, no proteinuria. Non-tender on exam; advised likely MSK. Can try heat/ice,Tylenol, stretching. Call if worsens or accompanied by new symptoms. Discussed medication use with . Was seen by cardiology last week for palpitations; receiving iron infusions. Planning Zio monitor and echo. Breast pump rx'd. 2 week return TITA Luu documented in this encounter Plan of Treatment Upcoming Encounters Date Type Department Care Team (Late st Contact Info) Description 06/17/2024 4:30 PM EDT Office Visit Gynecology/Obstetrics Jeanette Parham [address] [facility] [place] [address] Beth Prakash PA-C [address] [place] [address] 07/01/2024 3:45 PM EDT Office Visit Gynecology/Obstetrics Jeanette Parham [address] [place] [address] Cely Read, NICHOLAS, CNM [address] [place] [address] 07/16/2024 3:30 PM EDT Office Visit Gynecology/Obstetrics Jeanette Parham [address] [place] [address] Eleni Dent PA-C [address] [place] [address] 08/08/2024 7:15 AM EDT [facility] 132 [facility] [place] [address] 11/21/2024 3:00 PM EST Telemedicine Hematology/Oncology [place] [address] [facility] [place] [phone] Pamela Holliday CRNP [address] [place] [place] [address] 12/03/2024 9:00 AM EST Telemedicine CardiologyDeidrawn [address] [place] [address] Louis Perez DO [address] [place] [place] [address] Health Maintenance Due Date Last Done Comments [...] Not on filedocumented as of this encounter Procedures Procedure Name Priority Date/Time Associated Diagnosis Comments URINALYSIS, POINT OF CARE (ENTER/EDIT) Routine 06/04/2024 Supervision of normal first , antepartum documented in this encounter Results * URINALYSIS, POINT OF CARE (ENTER/EDIT) (06/04/2024) Color, Urine Yellow Yellow or Light Yellow Clarity, Urine Clear Clear Glucose, Urine Negative Negative mg/dL Bilirubin, Urine Negative Negative Ketone, Urine Negative Negative mg/dL Specific L[place], Urine 1.015 1.003 - 1.030 Blood, Urine Trace-intact Negative pH, Urine 6.5 5.0 - 7.5 units Protein, Urine Negative Negative mg/dL Urobilinogen, Urine 0.2 0.2 - 1.0 mg/dL Nitrite, Urine Negative Negative Esterase, Urine Negative Negative Urine 06/04/2024 Gabrielle Santiago Backer TITA LAB POINT O F CARE TEST ENTER/EDIT ORDERABLES documented in this encounter Visit Diagnoses Diagnosis Supervision of normal first , antepartum- Primary Antepartum anemia complicating Anemia, antepartum Breast feeding status of mother care and examination of lactating mother documented in this encounter Care Teams Bromination Equipment Operator Relationship Specialty Start Date End Date Caroline Jc MD [address] [place] [address] PCP - General Family Medicine 03/02/22 documented as of this encounter
--- OUTSIDE RECORDS SUMMARY | 2024-08-08 08:40 | External Medical Summary ---
Author Name Unknown Address Unknown Organization [id number]:[facility] - [address] [place] [address] Laboratory Report Ordering Provider Test Date Status NADIA DIAS 06/19/2024 07:53:27 Final Observation Date Value Abnormality Reference (Units ) Status SYNC LEUKOCYTES IN BLOOD BY AUTOMATED COUNT 06/19/2024 07:53:27 8.12 4.00-10.80 (K/uL) Final Segs 06/19/2024 07:53:27 74.0 40.0-75.0 (%) Final Lymphs % 06/19/2024 07:53:27 16.9 Below low normal 18.0-42.0 (%) Final Monos 06/19/2024 07:53:27 7.0 1.0-11.0 (%) Final Eosinophils 06/19/2024 07:53:27 0.9 0.0-6.0 (%) Final Basos 06/19/2024 07:53:27 0.2 0.0-2.0 (%) Final Immature Granulocyte, Percent 06/19/2024 07:53:27 1.0 0.0-2.0 (%) Final Absolute Segs 06/19/2024 07:53:27 6.01 1.80-7.70 (K/uL) Final Lymphs, absolute 06/19/2024 07:53:27 1.37 1.00-4.80 (K/ul) Final Monos, Abs 06/19/2024 07:53:27 0.57 0.00-1.10 (K/uL) Final Eos, Abs 06/19/2024 07:53:27 0.07 0.00-0.70 (K/uL) Final Basos, Abs 06/19/2024 07:53:27 0.02 0.00-0.20 (K/uL) Final Immature Granulocytes, Number 06/19/2024 07:53:27 0.08 0.00-0.20 (K/uL) Final Performing Location LABORATORY [facility] - [address] [facility] [address]
--- OUTSIDE RECORDS SUMMARY | 2024-08-08 08:40 | External Medical Summary ---
Author Name Unknown Address Unknown Organization [id number]:[facility] - [address] [place] [address] Laboratory Report Ordering Provider Test Date Status NADIA DIAS 06/19/2024 07:53:27 Final Observation Date Value Abnormality Reference (Units ) Status Ferritin 06/19/2024 07:53:27 95 13-150 (ng /mL) Final Performing Location [facility] - [address] [place] [address]
--- OUTSIDE RECORDS SUMMARY | 2024-08-08 08:40 | External Medical Summary ---
Author Name Unknown Address Unknown Organization [id number]:LABORATORY [facility] - [address] [place] [address] Laboratory Report Ordering Provider Test Date Status NADIA DIAS 06/04/2024 13:53:49 Final Observation Date Value Abnormality Reference (Units ) Status Iron 06/04/2024 13:53:49 80 33-151 (ug /dL) Final Iron-binding capacity 06/04/2024 13:53:49 384 250-425 (ug/dL) Final Transferrin Sat % 06/04/2024 13:53:49 21 15 -55 (%) Final Performing Location [facility] - [address] [place] [place] [address]
--- OUTSIDE RECORDS SUMMARY | 2024-08-08 08:40 | External Medical Summary ---
Author Name Unknown Address Unknown Organization [id number]:[facility]ATORY [place] [facility] - [address] [place] [address] Laboratory Report Ordering Provider Test Date Status NADIA DIAS 06/04/2024 13:53:49 Final Observation Date Value Abnormality Reference (Units ) Status SYNC LEUKOCYTES IN BLOOD BY AUTOMATED COUNT 06/04/2024 13:53:49 7.34 4.00-10.80 (K/uL) Final Segs 06/04/2024 13:53:49 72.0 40.0-75.0 (%) Final Lymphs % 06/04/2024 13:53:49 16.8 Below low normal 18.0-42.0 (%) Final Monos 06/04/2024 13:53:49 9.7 1.0-11.0 (%) Final Eosinophils 06/04/2024 13:53:49 1.2 0.0-6.0 (%) Final Basos 06/04/2024 13:53:49 0.3 0.0-2.0 (%) Final Absolute Segs 06/04/2024 13:53:49 5.29 1.80-7.70 (K/uL) Final Lymphs, absolute 06/04/2024 13:53:49 1.23 1.00-4.80 (K/ul) Final Monos, Abs 06/04/2024 13:53:49 0.71 0.00-1.10 (K/uL) Final Eos, Abs 06/04/2024 13:53:49 0.09 0.00-0.70 (K/uL) Final Basos, Abs 06/04/2024 13:53:49 0.02 0.00-0.20 (K/uL) Final Performing Location LAB[facility]ATORY [place] [address] - [address] [place] [address]
--- OUTSIDE RECORDS SUMMARY | 2024-08-08 08:40 | External Medical Summary ---
Author Name Unknown Address Unknown Organization [id number]:[facility]ATORY [facility] [address] - [address] [place] [address] Laboratory Report Ordering Provider Test Date Status LARISSANADIA 06/04/2024 13:53:49 Final Observation Date Value Abnormality Reference (Units ) Status Nucleated erythrocytes/100 leukocytes [Ratio] in Blood by Automated count 06/04/2024 13:53:49 Final Performing Location LAB[facility]ORY [facility] [address] - [address] [place] [address]
--- OUTSIDE RECORDS SUMMARY | 2024-08-08 08:40 | External Medical Summary ---
Author Name Unknown Address Unknown Organization [id number]:LABORATORY [facility] - [address] [place] [address] Laboratory Report Ordering Provider Test Date Status NADIA DIAS 06/04/2024 13:53:49 Final Observation Date Value Abnormality Reference (Units ) Status Folic Acid 06/04/2024 13:53:49 15.4 >4.5 (ng/ mL) Final Performing Location [facility] - [address] [place] [address]
--- OUTSIDE RECORDS SUMMARY | 2024-08-08 08:40 | External Medical Summary | Summary of Care ---
Author Name Unknown Organization [facility] Address [address] [place] [address] Phone [phone] Care Team Providers Care Certified Alcohol Counselor Name Role Phone Caroline Jc MD Primary Care Provid er Reason for Visit * Reason Comments Outpatient Testing Encounter Details Date Type Department Care Team (Late st Contact Info) Description 06/04/2024 2:00 PM EDT Laboratory Laboratory, [facility] [address] [place] [id number] [facility] [address] [place] [address] Antepartum anemia complicating Allergies Active Allergy Reactions [...] by mouth in the morning. Active Breast PumpIndications:[place] st feeding status of mother Z39.1, GREG [...] mRNA, LNP-s, No Pre serve, 2-Dose Series (AgFlow) 10/15/2021,03/16/2021,02/23/2021 Covid-19, Mrna, Lnp-s, Pf, B ivalent, 30 Mcg, IM, 12 yrs and above (AgFlow) 09/09/2022 DTaP Dipth/Tet/Acell Pertussis (Infanrix), Peds 04/13/1998,06/08/1995,1994,05/10,1994 [...] money to get more. Never true 03/25/2024 [place] Depression Scale Answer Date Recorded [place] Depression Scale Total 2 01/25/2024 The thought [...] No 03/25/2024 Does the household have a [facility] source of income? (Household - for [...] 06/17/2024 4:30 PM EDT Office Visit [facility] [address] [place] [address] Beth Prakash PA-C [address] [place] [address] 07/01/2024 3:45 PM EDT Office Visit [facility] [address] [place] [address] Cely Read, NICHOLAS, CNM [address] [place] [address] 07/16/2024 3:30 PM EDT Office Visit Gynecology/Obstetrics [facility] [address] [facility] [place] [address] Eleni Dent PA-C [address] [place] [address] 08/08/2024 7:15 AM EDT Cardiac Studies Cardiac Studies, [facility] [address] [facility] [place] [address] 11/21/2024 3:00 PM EST Telemedicine Hematology/Oncology [facility] [address] [facility], [place] [phone] Pamela Holliday CRNP [address] [facility] [place] [address] 12/03/2024 9:00 AM EST Telemedicine Cardiology, [place] [address] [place] [address] Louis Perez DO [address] [place] [address] Pending Results Name Type Priority Associated Diagnoses Date /Time CBC WITH WBC DIFFERENTIAL Lab STAT Antepartum anemia complicating 06/04/2024 1:53 PM EDT IRON SCREEN, INCLUDING TIBC Lab STAT Antepartum anemia complicating 06/04/2024 1:53 PM EDT FERRITIN Lab STAT Antepartum anemia complicating 06/04/2024 1:53 PM EDT VITAMIN B12 Lab STAT Antepartum anemia complicating 06/04/2024 1:53 PM EDT FOLIC ACID Lab STAT Antepartum anemia complicating 06/04/2024 1:53 PM EDT CBC Lab STAT Antepartum anemia complicating 06/04/2024 1:53 PM EDT DIFFERENTIAL, AUTOMATED Lab STAT Antepartum anemia complicating 06/04/2024 1:53 PM EDT Health Maintenance Due Date Last Done [...] antepartum documented in this encounter Care Teams Certified Alcohol Counselor Relationship Specialty Start Date End Date Caroline Jc MD [address] [place] [address] PCP - General Family Medicine 03/02/22 documented as of this encounter
--- OUTSIDE RECORDS SUMMARY | 2024-08-08 08:41 | External Medical Summary ---
Author Name Unknown Address Unknown Organization [id number]:LABORATORY [facility] - [address] [place] [address] Laboratory Report Ordering Provider Test Date Status WILL OLIVARES 05/06/2024 10:27:43 Final Observation Date Value Abnormality Reference (Units ) Status Vitamin B12 05/06/2024 10:27:43 [phone] (pg/mL) Final Performing Location LAB[facility]ATORY [facility] - [address] [place] [address]
--- OUTSIDE RECORDS SUMMARY | 2024-08-08 08:41 | External Medical Summary ---
Author Name Unknown Address Unknown Organization K01:LABORATORY [facility] - [address] [place] [address] Laboratory Report Ordering Provider Test Date Status NADIA DIAS 04/04/2024 13:01:13 Final Observation Date Value Abnormality Reference (Units ) Status Iron 04/04/2024 13:01:13 92 33-151 (ug /dL) Final Iron-binding capacity 04/04/2024 13:01:13 362 250-425 (ug/dL) Final Transferrin Sat % 04/04/2024 13:01:13 25 15 -55 (%) Final Performing Location LAB[facility]ATORY [facility] - [address] [place] [place] [address]
--- OUTSIDE RECORDS SUMMARY | 2024-08-08 08:41 | External Medical Summary ---
Author Name Unknown Address Unknown Organization [id number]:LABORATORY [facility] [place] - [facility] [address] [place] [address] Laboratory Report Ordering Provider Test Date Status NADIA DIAS 04/04/2024 13:01:13 Final Observation Date Value Abnormality Reference (Units ) Status WBC, Total 04/04/2024 13:01:13 7.06 4.00-10.80 (K/uL) Final RBC 04/04/2024 13:01:13 3.65 3.85-5.15 (M/uL) Final Hemoglobin 04/04/2024 13:01:13 10.3 Below low normal 12.0-15.3 (g/dL) Final HCT 04/04/2024 13:01:13 31.2 Below low normal 36.0-45.2 (%) Final MCV 04/04/2024 13:01:13 85.5 81.5-97.5 (fL) Final MCH 04/04/2024 13:01:13 28.2 27.0-34.0 (pg) Final MCHC 04/04/2024 13:01:13 33.0 32.0-36.0 (g/dL) Final RDW 04/04/2024 13:01:13 19.6 11.5-15.5 (%) Final Platelets 04/04/2024 13:01:13 264 140-400 (K/uL) Final MPV 04/04/2024 13:01:13 10.2 6.6-11.1 (fL) Final Nucleated erythrocytes/100 leukocytes [Ratio] in Blood by Automated count 04/04/2024 13:01:13 0 <=0 (/100 WBCs) Final Performing Location LABORATORY [facility] [place] - [address] [place] [address]
--- OUTSIDE RECORDS SUMMARY | 2024-08-08 08:41 | External Medical Summary ---
Author Name Unknown Address Unknown Organization K01:LABORATORY [facility] [place] - [facility] [address] [place] [address] Laboratory Report Ordering Provider Test Date Status WILL OLIVARES 05/06/2024 10:27:43 Final Observation Date Value Abnormality Reference (Units ) Status Creatinine 05/06/2024 10:27:43 0.5 0.5-1.0 (mg/dL) Final Glomerular filtration rate/1.73 sq M.predicted [Volume Rate/Area] in Serum, Plasma or Blood by Creatinine-based formula (CKD-EPI) 05/06/2024 10:27:43 >90 >=60 (mL/min) Final eGFR is calculated based on the CKD-EPI 2020 equation Performing Location LABORATORY [facility] - [address] [place] [address]
--- OUTSIDE RECORDS SUMMARY | 2024-08-08 08:41 | External Medical Summary | Summary of Care ---
Author Name Unknown Organization [facility] Address [address] [place] [address] Phone [phone] Care Team Providers Care Pediatrician/Medical Doctor Name Role Phone Caroline Jc MD Primary Care Provid er Reason for Referral * Evaluate & Treat - Unlimited Visits (Within 10 days (routine)) - Authorized Specialty Diagnoses / Procedures Referred By Contact Referred To Contact Cardiovascular Medicine / Cardiology Diagnoses Palpitations Gabrielle Hinojosa CRNP [address] [place] [address] Referral ID Status Reason Start Date Expiration Date Visits Requested Visits Authorized [id number] Authorized Specialty Services Required 05/21/2024 999 999 Question Answer Referral Priority Within 10 days (routine) Where should this appointment be scheduled? [facility] To which of the following clinics are you referring your patient? General Cardiology Clinic Reason for Visit * Reason Comments Return Visit Encounter Details Date Type Department Care Team (Late st Contact Info) Description 05/21/2024 1:30 PM EDT Office Visit Gynecology/Obstetric s Jeanette Parham [address] [place] [address] Gabrielle Hinojosa CRNP [address] [place] [address] Supervision of normal first , antepartum*; Antepartum anemia complicating ; Need for prophylactic vaccination with combined cslbasbeak-hfulswd-wm rtussis (DTP) vaccine; Palpitations Allergies Active Allergy Reactions Criticality Noted Date Comments Amoxicillin Hives High 07/28/2017 documented as of this encounter (statuses as of 05/21/2024) Medications Medication Sig Dispensed Refills Start Date [...] Capsule Therapy Pack Take by mouth. Active Unisom Simple Slumbers 2.5 MG Oral Tablet Chewable Take by mouth. 05/21/2024 Discontinu ed (Medication List Clean Up) documented as of this encounter (statuses as of 05/21/2024) Active Problems Problem Noted Date Diagnosed Date Antepartum anemia complicating 024 Overview: Significant anemia at NOB. Ask A Doc to hematology 01/25. Recommend oral iron, recheck CBCD and refer to hematology for IV iron if not improving. 01/31/24: Unable to tolerate PO iron. Referral placed to hematology. Supervision of normal first , antepartu 01/25/2024 Chronic urticaria 07/11/2018 Overview: since November, Gastroparesis 09/14/2017 Estimated Date of Delivery Comme nts Yes 08/12/2024 Based on Ultraso und documented as of this encounter (statuses as of 05/21/2024) Immunizations Name Administration Dates Next Due COVID-19 mRNA, LNP-s, No Pre serve, 2-Dose Series (Medikidz) 10/15/2021,03/16/2021,02/23/2021 Covid-19, Mrna, Lnp-s, Pf, B ivalent, 30 Mcg, IM, 12 yrs and above (Medikidz) 09/09/2022 DTaP Dipth/Tet/Acell Pertussis (Infanrix), Peds 04/13/1998,06/08/1995,1994,05/10,1994 H1N1 2009 Influenza, IM 10/14/2009 HIB PRP-T, 4 Dose, PF, IM (Hiberix) 05/14,1994,1994,05/09 HPV Vaccine, 4-Valent 02/21/2013, 012,08/02/2011,05/19 Hepatitis B, [...] money to get more. Never true 03/25/2024 [place] Depression Scale Answer Date Recorded [place] Depression Scale Total 2 01/25/2024 The thought [...] Sign Reading Time Taken Comments Blood Pressure 98/56 05/21/2024 1:19 PM EDT Pulse 83 05/21/2024 1:19 PM EDT Temperature - - Respiratory Rate - - Oxygen Saturation 100% 05/21/2024 1:19 PM EDT Inhaled Oxygen Concentration - - Weight 51.6 kg (113 lb 12.8 oz) 05/21/2024 1:19 PM EDT Height - - Body Mass Index 20.81 02/09/2024 9:57 AM EDT documented in this encounter Progress Notes * Marta Ding LPN - 05/21/2024 1:20 PM EDT 28w1d Denies vaginal bleeding/rom + movement Heart palpations noticing at night when resting- goes away when propped up with pillows Denies chest pain/SOB Prevacid with ? * Gabrielle Hinojosa CRNP - 05/21/2024 1:10 PM EDT 28w1d Baby moving well. No ctx, leaking, bleeding. Normal 1 hr GTT. Seeing hematology later today for anemia management. Discussed [facility] and when to call w/concerns. Notes palpitations at night since the weekend; improve when she sits up. No chest pain or SOB. Had these years ago, was evaluated by cardiology. Discussed CV changes in , may also be from anemia. Recommend cardiology evaluation to r/o other causes, she is agreeable. Advised to seek immediate medical attention for worsening symptoms, chest pain, SOB. Pt in no distress, normal work of breathing. Skin warm, pink. Radial pusles equal, regular. Heart regular rate/rhythm, lungs clear. SpO2 100%. 2 week return TITA Luu documented in this encounter Nursing Notes * Marta Ding LPN - 05/21/2024 1:45 PM EDT Patient here for tdap injection. Patient doing well no complaints. Injection given IM as ordered. Patient tolerated well. Patient to follow up as directed. Patient instructed to call if any complications. Patient verbalized understanding of instructions given. Injection site: Right Deltoid Medication Source: Dispensed stock medication documented in this encounter Plan of Treatment Upcoming Encounters Date Type Department Care Team (Late st Contact Info) Description 05/21/2024 3:00 PM EDT Office Visit Hematology/Oncology [facility] [place] [address] [facility] [address] [facility] [address] Pamela Holliday CRNP [address] [place] [address] 06/04/2024 1:30 PM EDT Office Visit Gynecology/Obstetrics [facility] [address] [place] [address] Gabrielle Hinojosa CRNP [address] [place] [address] 06/17/2024 4:30 PM EDT Office Visit Gynecology/Obstetrics [facility] [address] [place] [address] Beth Prakash PA-C [address] [place] [address] 08/01/2024 9:00 AM EDT Office Visit Cardiology, [facility] [address] [place] [address] Mg Simon O, DO [address] [place] [address] Scheduled Referrals Name Type Priority Associated Diagnoses Orde r Schedule CARDIOLOGY REFERRAL OP Referral Within 10 days (routine) Palpitations Ordered: 05/21/2024 Health Maintenance Due Date Last Done Comments [...] antepartum- Primary Antepartum anemia complicating Anemia, antepartum Need for prophylactic vaccination with combined btapvkahnw-fztmdhb-bphuatrjf (DTP) vaccine Palpitations documented in this encounter Care Teams Pediatrician/Medical Doctor Relationship Specialty Start Date End Date Caroline Jc MD [address] [place] [address] PCP - General Family Medicine 03/02/22 documented as of this encounter
--- OUTSIDE RECORDS SUMMARY | 2024-08-08 08:41 | External Medical Summary | Summary of Care ---
Author Name Unknown Organization [facility] Address [address] [place] [address] Phone [phone] Care Team Providers Care Day Treatment Clinician/Art Therapist Name Role Phone Caroline Jc MD Primary Care Provid er Reason for Referral * Precert (Within 10 days (routine)) - Authorized Specialty Diagnoses / Procedures Referred By Contac t Referred To Contact Cardiac Studies Diagnoses Palpitations Procedures ECHO, COMPLETE (2D), TRANS-THORACIC Louis Perez DO [address] [place] [address] Referral ID Status Reason Start Date Expiration Date V isits Requested Visits Authorized [id number] Authorized Precert 05/30/2024 999 999 Reason for Visit * Reason Comments Follow Up Rm 6 * Evaluate & Treat - Unlimited Visits (Within 10 days (routine)) - Authorized Specialty Diagnoses / Procedures Referred By Contact Referred To Contact Cardiovascular Medicine / Cardiology Diagnoses Palpitations Gabrielle Hinojosa CRNP [address] [place] [address] Referral ID Status Reason Start Date Expiration Date Visits Requested Visits Authorized [id number] Authorized Specialty Services Required 05/21/2024 999 [id number] Encounter Details Date Type Department Care Team (Late st Contact Info) Description 05/30/2024 2:00 PM EDT [phone] Louis Perez, DO [address] [place] [address] Palpitations* Allergies Active Allergy Reactions Criticality Noted Date Comments Amoxicillin Hives High 07/28/2017 documented as of this encounter (statuses as of 05/30/2024) Medications Medication Sig Dispensed Refills Start Date [...] Tablet by mouth in the morning. Active documented as of this encounter (statuses as of 05/30/2024) Active Problems Problem Noted Date Diagnosed Date [...] as of this encounter (statuses as of 05/30/2024) Immunizations Name Administration Dates Next Due COVID-19 mRNA, LNP-s, No Pre serve, 2-Dose Series (Jiglu) 10/15/2021,03/16/2021,02/23/2021 Covid-19, Mrna, Lnp-s, Pf, B ivalent, 30 Mcg, IM, 12 yrs and above (Jiglu) 09/09/2022 DTaP Dipth/Tet/Acell Pertussis (Infanrix), Peds 04/13/1998,06/08/1995,1994,05/10,1994 [...] money to get more. Never true 03/25/2024 [place] Depression Scale Answer Date Recorded [place] Depression Scale Total 2 01/25/2024 The thought [...] Sign Reading Time Taken Comments Blood Pressure 112/58 05/30/2024 2:05 PM EDT Pulse 96 05/30/2024 2:05 PM EDT Temperature - - Respiratory Rate 16 05/30/2024 2:05 PM EDT Oxygen Saturation - - Inhaled Oxygen Concentration - - Weight 52.6 kg (116 lb) 05/30/2024 2:05 PM EDT Height 157.5 cm (5' 2") 05/30/2024 2:05 PM EDT Body Mass Index 21.22 05/30/2024 2:05 PM EDT documented in this encounter Progress Notes * Louis Perez, - 05/30/2024 2:07 PM EDT Cardiology Office Visit HPI: 29 year old female with past medical history of 1. Premature ventricular contraction 2. GERD 3. Gastroparesis Patient presents for evaluation of palpitations he currently is 29 weeks and this is her 1st . Patient states that she has chronic palpitations and was previously seen by Cardiologyin 2018 and had a Zio monitor and echocardiogram done. She was found to have symptomatic premature ventricular contractions however the overall burden was less than 1% and a trial of beta dina wasdiscussed but ultimately given symptoms were infrequent and no significant PVC burden beta-dina therapy was held off. Patient states that prior to her she was having rare episodes of palpitations but nothing too significant however during her she developed anemia and since then has been having more frequent episodes of palpitations which she describes at times as a skipped beating and other times as a sensation that her heart rate is beating especially in the middle of night. She otherwise denies chest pain, dyspnea, orthopnea, PND, lower extremity edema, or syncope. Family history: Mother: Heart valve/CHF Father: CAD Skipped beats. Fewerfeel heart beating, at middle of the night change positionnot during the day Echocardiogram done on 09/06/2018 showed LVEF of 63%, normal RV size and systolic function, and no significant valvular disease. Zio monitor done on 08/02/2018 showed no significant abnormalities and patient's symptoms correlated with premature ventricular contractions however overall burden was less than 1%. Past Medical History: Diagnosis Date Anemia Eczema Gastritis anemia Gastroparesis Follows with GI, [facility] GERD (gastroesophageal reflux disease) Overactive bladder Palpitations Past Surgical History: Procedure Laterality Date COLONOSCOPY, DIAGNOSTIC (RECTUM) 05/26/2020 normal bx / COLONOSCOPY FLEXIBLE PROXIMAL DIAGNOSTIC performed by Yane Harris DO at ENDOSCOPY [facility] DENTAL SURGERY PROCEDURE NEC 2011 EGD, FLEXIBLE, DIAGNOSTIC 05/26/2020 normal bx / ESOPHAGOGASTRODUODENOSCOPY (EGD), FLEXIBLE, TRANSORAL, DIAGNOSTIC performed by Yane Harris DO at [facility]OSCOPY [facility] EGD, FLEXIBLE, DIAGNOSTIC 01/13/2022 benign gastric polyps / ESOPHAGOGASTRODUODENOSCOPY (EGD), FLEXIBLE, TRANSORAL, DIAGNOSTIC performedby Edilma Gómez MD at ENDOSCOPY [facility] Social History Socioeconomic History Marital status: Spouse name: Not on file Number of children: Not on file Years of education: Not on file Highest education level: Not on file Occupational History Not on file Tobacco Use Smoking status: Never Smokeless tobacco: Never Vaping Use Vaping status: Never Used Substance and Sexual Activity Alcohol use: Not Currently Comment: rarely Drug use: No Sexual activity: Yes Partners: Male Other Topics Concern Not on file Social History Narrative Not on file Social Determinants of Health Financial Resource Strain: Low Risk (03/25/2024) Financial Resource Strain Do you have any trouble paying for your medications, or do you think you might in the future? (Adult - for ages 18 years and over): No Does your family have trouble paying for medicine? (Household - for ages 0-17 years): Not on file Food Insecurity: No Food Insecurity (03/25/2024) Food Insecurity Do you need food for this week? (Adult - for ages 18 years and over): No Are you able to get enough food for your family? (Household - for ages 0-17 years): Not on file Does your family need food this week? (Household - for ages 0-17 years): Not on file Do you always have enough food for your family? (Household - for ages 0-17 years): Not on file Transportation Needs: No Transportation Needs (03/25/2024) Transportation Needs Do you have trouble getting a ride to medical visits or work? (Adult - for ages 18 years and over):Never True Does your family have a hard time getting a ride to doctors visits? (Household - for ages 0-17 years): Not on file Has lack of transportation kept you from medical appointments, meetings, work, or from getting things needed for daily living? Check all that apply. (Adult - for ages 18 years and over): Not on file Do you (or your family) have trouble finding or paying for a ride (transportation)? (Household - for ages 0-17 years): Not on file Social Connections: Socially Integrated (03/25/2024) Social Connections How often do you feel lonely or isolated from those around you? (Adult - for ages 18 years and over): Never Housing Stability: Low Risk (03/25/2024) Housing Stability Do you currently live in a skilled nursing or have no steady place to sleep at night? (Adult - for ages 18 years and over): No Do you think you are at risk of becoming homeless? (Adult - for ages 18 years and over): No Does your family worry about paying for your home or becoming homeless? (Household - for ages 0-17 years): Not on file Are you homeless or worried that you might be in the future? (Adult - for ages 18 years and over): Not on file Are you (or your family) homeless or worried that you might be in the future? (Household - for ages0-17 years): Not on file Review of patient's allergies indicates: Allergen Reactions Amoxicillin Hives Current Outpatient Medications Medication Sig Dispense Refill Vitamin B-12 1000 MCG Oral Tablet (Cyanocobalamin) Take 1 Tablet by mouth in the morning. Complete Oral Capsule Therapy Pack Take by mouth. Lansoprazole 30 MG Oral Capsule Delayed Release (Prevacid) Take 1 Capsule by mouth in the morning. 90 Capsule 3 Polyethylene Glycol 3350 17 GM/SCOOP Oral Powder Take 17 g by mouth in the morning. Probiotic Product (ALIGN) 4 MG Capsule Take 1 Capsule by mouth in the morning. No current facility-administered medications for this visit. Review of Systems: Constitutional: No fevers, sweats, or chills Neck: Negative and No known carotid artery disease Pulmonary: No shortness or breath Cardiac: No chest pain, No angina, No syncope, No shortness of breath, No orthopnea, No paroxysmal nocturnal dyspnea, and No edema GI/Abd: No melana or hematochezia Vascular: No claudication Hematologic: No abnormal bleeding Musculoskeletal: No pain, redness or swelling on the joints Skin: no rash Neurologic: No TIA symptoms, No CVA symptoms, No syncope, No near syncope, and No orthostasis BP 112/58 | Pulse 96 | Resp 16 | Ht 1.575 m (5' 2") | Wt 52.6 kg (116 lb) | LMP 10/30/2023 (Approximate) | BMI 21.22 kg/m | BSA 1.52 m GEN: NAD, AAOX3 HEENT: No JVD, no carotid bruits CVS: Nl1 S1, S2 no murmurs Chest: CTA B/L No wheezing, rhonchi, rales Abd: Soft NT, ND, +BS Ext: no edema, pulses intact ECG: Normal sinus rhythm with nonspecific ST abnormalities, QTC 433 milliseconds (no change compared to previous ECG in 2018) Assessment 1. Palpitations 2. Premature ventricular contractions 3. Gastroparesis 4. GERD Plan - Patient has been having worsening palpitations since having anemia during her . Most likely her symptoms of palpitation have been worsened by anemia she is currently is getting iron infusions and with no significant improvement in her anemia and currently on B12. Patient otherwise denieschest pain, dyspnea, or syncope. On clinical exam is euvolemic. Will place a Zio monitor to see if p atient is having a high burden of PVCs. Will check echocardiogram. - Trial of beta-dina therapy can be considered but preferably after once patient delivers if she continues to have palpitations despite correction of her anemia. - Return to clinic in 6 months, sooner if needed. documented in this encounter Nursing Notes * Lauren Whiteside NRCMA - 05/30/2024 2:07 PM EDT Patient was identified by name and date of . Examination Room: 6 Name: Rubia Umana Date of : (1995). Reason for Visit: ret visit Interim Hospitalization(s): no Problems/Concerns: no Chest Pain/SOB: no Medications reviewed and are up to date via: [employer] [facility] is a way you can talk to your provider online through e-mail. Would you like to sign up? I can activate it for you? ALREADY ACTIVE Do you have video visit capabilities (email and smart phone)? No. Would you be interested in 6 or 12 return visit being scheduled as a video visit if the provider approves? No Patient was instructed to not get up on the exam table/exam chair until directed and assisted by their provider; patient is to remain seated in the chair/ wheelchair/ exam table/ exam chair for fall prevention and safety reasons. Patient is aware to have assistance to step down off exam table/exam chair with personnel. Patient voiced full comprehension of instructions. MIRTHA August documented in this encounter Plan of Treatment Upcoming Encounters Date Type Department Care Team (Late st Contact Info) Description 06/03/2024 3:15 PM EDT [facility] [address] [place] [address] 06/04/2024 1:30 PM EDT [facility] [address] [place] [address] Gabrielle Hinojosa CRNP [address] [place] [address] 06/04/2024 2:00 PM EDT Laboratory Laboratory, [facility] [address] [place] [address] ParhamShayla ma [facility] [address] [place] [address] 06/17/2024 4:30 PM EDT [facility] [address] [place] [address] Beth Prakash PA-C [address] [place] [address] 08/08/2024 7:15 AM EDT Cardiac Studies Cardiac Studies, [facility] [address] [place] [address] 11/21/2024 3:00 PM EST Telemedicine Hematology/Oncology [facility] [place] [address] [facility] [place] [address] Pamela Holliday CRNP [address] [place] [address] 12/03/2024 9:00 AM EST Telemedicine Cardiology, [facility] [address] [place] [address] Louis Perez DO [address] [place] [address] Scheduled Orders Name Type Priority Associated Diagnoses Orde r Schedule EKG EKG Routine Palpitations Expected: 05/30/2024 (Approximate), Expires: 06/30/2025 EXTERNAL EKG 8 TO 15 DAYS Holter Routine Palpitations Expected: 05/31/2024 (Approximate), Expires: 05/30/2025 ECHO, COMPLETE (2D), TRANS-THORACIC Echocardiology Routine Palpitations Expected: 05/30/2024 (Approximate), Expires: 06/30/2026 Health Maintenance Due Date Last Done Comments [...] Completed , 02/22/2012, 08/02/2011, Additional history exists Pneumococcal Vaccine: Pediatrics (0 to 5 Years) and At-Risk Patients (6 to 64 Years) Aged Out No longer eligible based on patient's age to complete this topic documented as of this encounter Medical Devices Not on filedocumented as of this encounter Visit Diagnoses Diagnosis Palpitations- Primary documented in this encounter Care Teams Day Treatment Clinician/Art Therapist Relationship Specialty Start Date End Date Caroline Jc MD [address] [place] [address] PCP - General Family Medicine 03/02/22 documented as of this encounter
--- OUTSIDE RECORDS SUMMARY | 2024-08-08 08:41 | External Medical Summary ---
Author Name Unknown Address Unknown Organization [id number]:[facility] [place] [address] [place] [address] Laboratory Report Ordering Provider Test Date Status WILL OLIVARES 05/06/2024 10:27:43 Final Observation Date Value Abnormality Reference (Units ) Status Glucose [Moles/volume] in Serum or Plasma --1 hour post 50 g glucose PO 05/06/2024 10:27:43 103 70-129 (mg/dL) Final Performing Location LABORATORY [place] [address] [place] [address]
--- OUTSIDE RECORDS SUMMARY | 2024-08-08 08:41 | External Medical Summary | Summary of Care ---
Author Name Unknown Organization [facility] Address [address] [place] [address] Phone [phone] Care Team Providers Care Laser Engineer Name Role Phone Caroline Jc MD Primary Care Provid er Reason for Visit * Reason Comments Return Visit Encounter Details Date Type Department Care Team (Late st Contact Info) Description 04/22/2024 3:00 PM EDT Office Visit Gynecology/Obstetric s Jeanette Parham [address] [place] [address] Bernardo Kate MD [address] [place] [address] Supervision of normal first , antepartum*; Antepartum anemia complicating Allergies Active Allergy Reactions Criticality Noted Date Comments Amoxicillin Hives High 07/28/2017 documented as of this encounter (statuses as of 04/22/2024) Medications Medication Sig Dispensed Refills Start Date [...] MG Oral Tablet Chewable Take by mouth. Activ e documented as of this encounter (statuses as of 04/22/2024) Active Problems Problem Noted Date Diagnosed Date [...] as of this encounter (statuses as of 04/22/2024) Immunizations Name Administration Dates Next Due COVID-19 mRNA, LNP-s, No Pre serve, 2-Dose Series ([email or web address]) 10/15/2021,03/16/2021,02/23/2021 Covid-19, Mrna, Lnp-s, Pf, B ivalent, 30 Mcg, IM, 12 yrs and above ([email or web address]) 09/09/2022 DTaP Dipth/Tet/Acell Pertussis (Infanrix), Peds 04/13/1998,06/08/1995,1994,05/10,1994 H1N1 2009 Influenza, IM 10/14/2009 HIB PRP-T, 4 dose (ActHib) 06/08/1995,,1994,05/09 HPV Vaccine, 4-Valent 02/21/2013, 012,08/02/2011,05/19 Hepatitis B, 0-19 yrs 03/10/1995,1994,02/12 IPV - Polio Virus Vaccine (Inact) 1997,1994,1994,05/09 MMR - Measles/Mumps/Rubella Vaccine 03/15/1999,0 06/08/1995 Meningococcal Conjugate Vacc ine (Menactra/Menveo) 05/19/2011,07/02/2008 Meningococcal MCV4P Conjugat e Vaccine (Menactra) 05/19/2011,07/02/2008 Seasonal Influenza Virus Vac cine, Unspecified Formulation 08/24/2021,08/10/2020,08/19/2019 Seasonal Influenza, PF, 6 M & above, IM , (FluLaval or Fluzone) 08/15/2023,09/16/2022,08/24/2021,08/10,08/19/2019 TDAP (age 10 and older)(Boostrix) 08/02/2018 Varicella Vaccine (Chicken Pox) 07/02/2008,03/15 documented as [...] money to get more. Never true 03/25/2024 [place] Depression Scale Answer Date Recorded [place] Depression Scale Total 2 01/25/2024 The thought of harming myself has occurred to me . Never 01/25/2024 Estimated Date of Delivery Comme nts Yes [...] Sign Reading Time Taken Comments Blood Pressure 102/60 04/22/2024 3:00 PM EDT Pulse - - Temperature - - Respiratory Rate - - Oxygen Saturation - - Inhaled Oxygen Concentration - - Weight 49.9 kg (110 lb) 04/22/2024 3:00 PM EDT Height - - Body Mass Index 20.12 02/09/2024 9:57 AM EDT documented in this encounter Progress Notes * Bernardo Kate MD - 04/22/2024 3:17 PM EDT Patient has family history of diabetes. Will order early glucose screening.Negative dip stick. * Miriam Keys LPN - 04/22/2024 3:00 PM EDT Pt is currently 24w0d with an Estimated Date of Delivery: 08/12/24 - documented in this encounter Plan of Treatment Upcoming Encounters Date Type Department Care Team (Late st Contact Info) Description 05/06/2024 9:30 AM EDT Laboratory Laboratory, [facility] [address] [facility] [place] [address] [facility] [address] [facility] [address] 05/21/2024 12:30 PM EDT Office Visit Gastroenterology, [facility] [address] [facility] [place] [address] Susy Holliday CRNP [address] [facility] [place] [address] 05/21/2024 1:30 PM EDT Office Visit Gynecology/Obstetrics [facility] [place] [address] Gabrielle Hinojosa CRNP [address] [place] [address] 05/21/2024 3:00 PM EDT Office Visit Hematology/Oncology [facility] [place] [address] [facility] [phone] Pamela Holliday CRNP [address] [place] [address] [place] [address] Scheduled Orders Name Type Priority Associated Diagnoses Orde r Schedule CBC WITH WBC DIFFERENTIAL AND ANEMIA REFLEX WORKUP Lab Routine Antepartum anemia complicating Expected: 05/22/2024 (Approximate), Expires: 04/22/2025 SYPHILIS ANTIBODY SCREEN WITH REFLEX TO RPR Lab Routine Supervision of normal first , antepartum Expected: 05/22/2024 (Approximate), Expires: 04/22/2025 50-G GESTATIONAL GLUCOSE, 1 HOUR Lab Routine Supervision of normal first , antepartum Expected: 05/22/2024 (Approximate), Expires: 04/22/2025 Health Maintenance Due Date Last Done Comments COVID-19 Vaccine ( season) 2023 09/09/2022, 10/15/2021, 03/16/2021, Additional history exists Depression Screening 09/16/2023 09/16/2022 HPV/Co-Test 2024 Cervical Cancer Screening 09/22/2024 Pap Smear 09/22/2024 09/22/2021, 09/13, 09/26/2018, Additional history exists DTaP,Tdap,and Td Vaccines (6 - Td or Tdap) 08/02/2028 08/02/2018, 04/13/1998, 06/08/1995, Additional history exists Hepatitis B Completed 03/10/1995, 03/14, 1994 MENINGOCOCCAL (MENACTRA/MENVEO) Completed 05/19/2011, 05/19/2011, 07/02/2008, Additional history exists GARDASIL-HPV IMMUNIZATION SERIES Completed 02/21/2013, 02/22/2012, 08/02/2011, Additional history exists Influenza Vaccine (FLU shot) Completed 01/2023, 09/16/2022, 08/24/2021, Additional history exists Pneumococcal Vaccine: Pediatrics (0 to 5 Years) and At-Risk Patients (6 to 64 Years) Aged Out No longer eligible based on patient's age to complete this topic documented as of this encounter Medical Devices Not on filedocumented as of this encounter Procedures Procedure Name Priority Date/Time Associated Diagnosis Comments URINALYSIS, POINT OF CARE (ENTER/EDIT) Routine 04/22/2024 Supervision of normal first , antepartum documented in this encounter Results * URINALYSIS, POINT OF CARE (ENTER/EDIT) (04/22/2024) Color, Urine Yellow Yellow or Light Yellow Clarity, Urine Clear Clear Glucose, Urine Negative Negative mg/dL Bilirubin, Urine Negative Negative Ketone, Urine Negative Negative mg/dL Specific [place], Urine 1.010 1.003 - 1.030 Blood, Urine Negative Negative pH, Urine 7.0 5.0 - 7.5 units Protein, Urine Negative Negative mg/dL Urobilinogen, Urine 0.2 0.2 - 1.0 mg/dL Nitrite, Urine Negative Negative Esterase, Urine Negative Negative Urine 04/22/2024 Bernardo Kate MD LAB POINT OF CARE T EST ENTER/EDIT ORDERABLES documented in this encounter Visit Diagnoses Diagnosis Supervision of normal first , antepartum- Primary Antepartum anemia complicating Anemia, antepartum documented in this encounter Care Teams Laser Engineer Relationship Specialty Start Date End Date Caroline Jc MD [address] [place] [address] PCP - General Family Medicine 03/02/22 documented as of this encounter
--- OUTSIDE RECORDS SUMMARY | 2024-08-08 08:41 | External Medical Summary ---
Author Name Unknown Address Unknown Organization K01:[facility]ORY [facility] - [address] [place] [address] Laboratory Report Ordering Provider Test Date Status WILL OLIVARES 05/06/2024 10:27:43 Final Observation Date Value Abnormality Reference (Units ) Status WBC, Total 05/06/2024 10:27:43 6.17 4.00-10.8 0 (K/uL) Final RBC 05/06/2024 10:27:43 3.46 3.85-5.15 (M/uL) Final Hemoglobin 05/06/2024 10:27:43 10.3 Below low normal 12 .0-15.3 (g/dL) Final Anemia reflex testing trigge rs on a HGB < 12.0 for Females and HGB < 13.0 for Males in accordance with the WHO Anemia Guidelines
Anemia reflex testing triggers on a HGB < 12.0 for Females and HGB < 13.0 for Males in accordance with the WHO Anemia Guidelines HCT 05/06/2024 10:27:43 31.4 Below low normal 36. 0-45.2 (%) Final MCV 05/06/2024 10:27:43 90.8 81.5-97.5 (fL) Final MCH 05/06/2024 10:27:43 29.8 27.0-34.0 (pg) Final MCHC 05/06/2024 10:27:43 32.8 32.0-36.0 (g/dL) Final RDW 05/06/2024 10:27:43 16.6 11.5-15.5 (%) Final Platelets 05/06/2024 10:27:43 245 140-400 (K /uL) Final MPV 05/06/2024 10:27:43 10.4 6.6-11.1 ( fL) Final Nucleated erythrocytes/100 leukocytes [Ratio] in Blood by Automated count 05/06/2024 10:27:43 0 <=0 (/100 WBCs) Final Performing Location LAB[facility]ATORY [facility] - [address] [facility] [address]
--- OUTSIDE RECORDS SUMMARY | 2024-08-08 08:41 | External Medical Summary | Summary of Care ---
Author Name Unknown Organization [facility] Address [address] [place] [address] Phone [phone] Care Team Providers Care Silvering Department Supervisor Name Role Phone Caroline Jc MD Primary Care Provid er Reason for Visit * Reason Comments Follow Up Pt here to f/u for g astroparesis. Pt states she is doing well. Pt is and feels it has not impacted her sx. Encounter Details Date Type Department Care Team (Late st Contact Info) Description 05/21/2024 12:30 PM EDT Office Visit Gastroenterology, [facility] [address] [place] [address] Susy Holliday CRNP [address] [place] [address] Gastroparesis*; Gastroesophageal reflux disease without esophagitis Allergies Active Allergy Reactions Criticality Noted Date [...] mRNA, LNP-s, No Pre serve, 2-Dose Series ([employer]) 10/15/2021,03/16/2021,02/23/2021 Covid-19, Mrna, Lnp-s, Pf, B ivalent, 30 Mcg, IM, 12 yrs and above ([employer]) 09/09/2022 DTaP Dipth/Tet/Acell Pertussis (Infanrix), Peds 04/13/1998,06/08/1995,1994,05/10,1994 [...] money to get more. Never true 03/25/2024 Gleason Depression Scale Answer Date Recorded Gleason Depression Scale Total 2 01/25/2024 The thought [...] Sign Reading Time Taken Comments Blood Pressure 110/70 05/21/2024 12:30 PM EDT Pulse 72 05/21/2024 12:30 PM EDT Temperature 36.8 C (98.2 F) 05/21/2024 12:30 PM E DT Respiratory Rate - - Oxygen Saturation - - Inhaled Oxygen Concentration - - Weight 51.3 kg (113 lb) 05/21/2024 12:30 PM EDT Height - - Body Mass Index 20.67 02/09/2024 9:57 AM EDT documented in this encounter Progress Notes * Susy Holliday CRNP - 05/21/2024 5:42 AM EDT CC: Recheck GERD HPI: Ms. Rubia Umana is a 29 yr old female pt of Dr. Hosea christianson a hx of anemia, eczema, overactivebladder and palpitations who has previously followed in GI clinic w Harish Shani for gastritis, gastropareis, GERD, most recently in Nov 2023. She is , w an EDC 08/12/24. Current GI Meds: Prevacid 30mg one tab 1/2 hour before breakfast. Miralax daily - adjusting the dosing. Current GI Symptoms: Having minor, infrequent reflux symptoms but had one really bad when maybe she forgot her Prevacid.No cough, no vomiting . Constipation: taking miralax daily, typically passing a BM daily or every second day though not always complete emptying. Diagnostic Testing: GES 2021: normal EGD 2021: The Z-line was found 35 cm from the incisors. The exam of the esophagus was otherwise normal. Esophageal biopsies were done. The gastroesophageal flap valve was visualized endoscopically and classified as Hill Grade II (fold present, opens with respiration). A few sessile polyps with no stigmata of recent bleeding were found in the gastric body. One of these polyps was approximately 7-8 mm, and had a small amount of oozing. The base of the polyp was injected with saline, and the polyp was removed with hot snare. Polyp retrieved. The stomach was otherwise normal. Random biopsies done. The duodenum was normal. Random biopsies done. Colonoscopy 2019: The examined portion of the ileum was normal.Normal mucosa in the entire examinedcolon. Biopsied.The distal rectum and anal verge are normal on retroflexion view EGD 2019: Normal esophagus. Normal stomach. Normal examined duodenum. Biopsied EGD 10/2017: HH, fundic gland polyp EGD 09/2016: mild gastritis, fundic gland polyps RUQ US: WNL GES 2016: significant delay in emptying, T-1/2 of emptying at 150 minutes Current GI Meds: Current GI Symptoms: Diagnostic Testing: Current Outpatient Medications Medication Sig Dispense Refill Probiotic Product (ALIGN) 4 MG Capsule Take 1 Capsule by mouth in the morning. Polyethylene Glycol 3350 17 GM/SCOOP Oral Powder Take 17 g by mouth in the morning. Lansoprazole 30 MG Oral Capsule Delayed Release (Prevacid) Take 1 Capsule by mouth in the morning. 90 Capsule 3 Complete Oral Capsule Therapy Pack Take by mouth. Unisom Simple Slumbers 2.5 MG Oral Tablet Chewable Take by mouth. (Patient not taking: Reported on 04/22/2024) No current facility-administered medications for this visit. EXAM: LMP 10/30/2023 (Approximate) BP 110/70 | Pulse 72 | Temp 36.8 C (98.2 F) | Wt 51.3 kg (113 lb) | LMP 10/30/2023 (Approximate) | BMI 20.67 kg/m | BSA 1.5 m GENERAL: 29 year old female well developed and well nourished in no acute distress SKIN: no rashes, ulcers, or spider angiomata HEENT: normocephalic, sclera clear, pharynx normal NECK: supple, no lymphadenopathy, no masses or thyroid enlargement LUNGS: clear to auscultation anteriorly and posteriorly HEART: regular rate & rhythm, no murmurs and no gallops ABDOMEN: normo-active bowel sounds, soft, non-tender, non-distended no masses, no hepatosplenomegaly, no rebound or guarding, no bruits EXTREMITIES: no palmar erythema, no edema, no skin discoloration, no clubbing, no cyanosis NEURO: no lateralizing findings, Sensory/Motor grossly normal IMPRESSION: 29 year old female with GERD, gastroparesis in . RECOMMENDATIONS: Continue the prevacid 30mg QAM. Famotidine and pantoprazole are considered safe during nursing. Recheck in GI In 6m and as needed. I spent a total of 30 minutes on the date of service in review of patient's record, and previously obtained information in person and appropriate medical visit, discussion and education of plan, withpatient and/or caregiver, placing orders for tests/referral/procedures as medically necessary and documentation of pertinent clinical information in patient's medical records for their visit today. Thank you for the opportunity to be involved in the care of this patient. TITA Stephenson [facility] Gastroenterology documented in this encounter Nursing Notes * Miranda Castillo CMA - 05/21/2024 12:30 PM EDT Chief Complaint Patient presents with Follow Up Pt here to f/u for gastroparesis. Pt states she is doing well. Pt is and feels it has not impacted her sx. documented in this encounter Plan of Treatment Upcoming Encounters Date Type Department Care Team (Late st Contact Info) Description 05/21/2024 3:00 PM EDT Office Visit Hematology/Oncology [facility] [address] [place] [phone] Pamela Holliday CRNP [address] [place] [address] 06/04/2024 1:30 PM EDT Office Visit Gynecology/Obstetrics [facility] [address] [place] [address] Gabrielle Hinojosa CRNP [address] [place] [address] 06/17/2024 4:30 PM EDT Office Visit Gynecology/Obstetrics [facility] [address] [place] [address] Beth Prakash PA-C [address] [place] [address] 08/01/2024 9:00 AM EDT Office Visit Cardiology, [facility] [address] [place] [address] Mg Simon O, DO [address] [place] [address] Health Maintenance Due Date Last Done Comments [...] as of this encounter Visit Diagnoses Diagnosis Gastroparesis- Primary Gastroesophageal reflux disease without esophagitis Esophageal reflux documented in this encounter Care Teams Silvering Department Supervisor Relationship Specialty Start Date End Date Caroline Jc MD [address] [place] [address] PCP - General Family Medicine 03/02/22 documented as of this encounter"
--- OUTSIDE RECORDS SUMMARY | 2024-08-08 08:41 | External Medical Summary ---
Author Name Unknown Address Unknown Organization [id number]:[facility] - [address] [facility] [place] [address] Laboratory Report Ordering Provider Test Date Status WILL OLIVARES 05/06/2024 10:27:43 Final Observation Date Value Abnormality Reference (Units ) Status SYNC LEUKOCYTES IN BLOOD BY AUTOMATED COUNT 05/06/2024 10:27:43 6.17 4.00-10.80 (K/uL) Final Segs 05/06/2024 10:27:43 74.3 40.0-75.0 (%) Final Lymphs % 05/06/2024 10:27:43 16.9 Below low normal 18.0-42.0 (%) Final Monos 05/06/2024 10:27:43 7.3 1.0-11.0 (%) Final Eosinophils 05/06/2024 10:27:43 0.6 0.0-6.0 (%) Final Basos 05/06/2024 10:27:43 0.3 0.0-2.0 (%) Final Immature Granulocyte, Percent 05/06/2024 10:27:43 0.6 0.0-2.0 (%) Final Absolute Segs 05/06/2024 10:27:43 4.58 1.80-7.70 (K/uL) Final Lymphs, absolute 05/06/2024 10:27:43 1.04 1.00-4.80 (K/ul) Final Monos, Abs 05/06/2024 10:27:43 0.45 0.00-1.10 (K/uL) Final Eos, Abs 05/06/2024 10:27:43 0.04 0.00-0.70 (K/uL) Final Basos, Abs 05/06/2024 10:27:43 0.02 0.00-0.20 (K/uL) Final Immature Granulocytes, Number 05/06/2024 10:27:43 0.04 0.00-0.20 (K/uL) Final Performing Location LABORATORY [facility] - [address] [facility] [address]
--- OUTSIDE RECORDS SUMMARY | 2024-08-08 08:41 | External Medical Summary ---
Author Name Unknown Address Unknown Organization [id number]:[facility]ORY [facility] - [address] [place] [address] Laboratory Report Ordering Provider Test Date Status WILL OLIVARES 05/06/2024 10:27:43 Final Observation Date Value Abnormality Reference (Units ) Status Iron 05/06/2024 10:27:43 96 33-151 (ug /dL) Final Iron-binding capacity 05/06/2024 10:27:43 367 250-425 (ug/dL) Final Transferrin Sat % 05/06/2024 10:27:43 26 15 -55 (%) Final Performing Location LAB[facility]ATORY [facility] - [address] [place] [address]
--- OUTSIDE RECORDS SUMMARY | 2024-08-08 08:41 | External Medical Summary ---
Author Name Unknown Address Unknown Organization [id number]:[facility] - [address] [place] [address] Laboratory Report Ordering Provider Test Date Status WILL OLIVARES 05/06/2024 10:27:43 Final Observation Date Value Abnormality Reference (Units ) Status TSH 05/06/2024 10:27:43 1.16 0.27-4.20 (uIU/mL) Final Performing Location [facility] - [address] [place] [address]
--- OUTSIDE RECORDS SUMMARY | 2024-08-08 08:41 | External Medical Summary ---
Author Name Unknown Address Unknown Organization [id number]:[facility] - [address] [place] [address] Laboratory Report Ordering Provider Test Date Status NADIA DIAS 04/04/2024 13:01:13 Final Observation Date Value Abnormality Reference (Units ) Status Elen cells [Presence] in Blood by Light microscopy 04/04/2024 13:01:13 Moderate Abnormal None Seen Final Ovalocytes [Presence] in Blood by Light microscopy 04/04/2024 13:01:13 Moderate Abnormal None Seen Final Schistocytes 04/04/2024 13:01:13 Few Abnormal None Seen Final Performing Location [facility] - [address] [place] [address]
--- OUTSIDE RECORDS SUMMARY | 2024-08-08 08:41 | External Medical Summary ---
Author Name Unknown Address Unknown Organization [id number]:[facility] - [address] [facility] [place] [address] Laboratory Report Ordering Provider Test Date Status NADIA DIAS 04/04/2024 13:01:13 Final Observation Date Value Abnormality Reference (Units ) Status SYNC LEUKOCYTES IN BLOOD BY AUTOMATED COUNT 04/04/2024 13:01:13 7.06 4.00-10.80 (K/uL) Final Segs 04/04/2024 13:01:13 68.4 40.0-75.0 (%) Final Lymphs % 04/04/2024 13:01:13 20.8 18.0-42.0 (%) Final Monos 04/04/2024 13:01:13 8.6 1.0-11.0 (%) Final Eosinophils 04/04/2024 13:01:13 1.3 0.0-6.0 (%) Final Basos 04/04/2024 13:01:13 0.3 0.0-2.0 (%) Final Immature Granulocyte, Percent 04/04/2024 13:01:13 0.6 0.0-2.0 (%) Final Absolute Segs 04/04/2024 13:01:13 4.83 1.80-7.70 (K/uL) Final Lymphs, absolute 04/04/2024 13:01:13 1.47 1.00-4.80 (K/ul) Final Monos, Abs 04/04/2024 13:01:13 0.61 0.00-1.10 (K/uL) Final Eos, Abs 04/04/2024 13:01:13 0.09 0.00-0.70 (K/uL) Final Basos, Abs 04/04/2024 13:01:13 0.02 0.00-0.20 (K/uL) Final Immature Granulocytes, Number 04/04/2024 13:01:13 0.04 0.00-0.20 (K/uL) Final Performing Location LAB[facility]ATORY [facility] - [address] [facility] [address]
--- OUTSIDE RECORDS SUMMARY | 2024-08-08 08:41 | External Medical Summary ---
Author Name Unknown Address Unknown Organization [id number]:LABORATORY [facility] - [facility] [address] Laboratory Report Ordering Provider Test Date Status WILL OLIVARES 05/06/2024 10:27:43 Final Observation Date Value Abnormality Reference (Units ) Status Retic, % (auto) 05/06/2024 10:27:43 2.22 Above high normal 0.80-1.90 (%) Final Reticulocytes, Absolute 05/06/2024 10:27:43 76.4 31.3-100.1 (K/uL) Final Reticulocyte fraction, immature 05/06/2024 10:27:43 24.1 Above high normal 2.5-20.6 (%) Final Reticulocyte HGB 05/06/2024 10:27:43 34.2 29.7-37.4 (pg) Final Performing Location LABORATORY [facility] [facility] - [address] [facility] [address]
--- OUTSIDE RECORDS SUMMARY | 2024-08-08 08:41 | External Medical Summary ---
Author Name Unknown Address Unknown Organization K01:[facility] - [address] [place] [address] Laboratory Report Ordering Provider Test Date Status LARISSANADIA 04/04/2024 13:01:13 Final Observation Date Value Abnormality Reference (Units ) Status Ferritin 04/04/2024 13:01:13 296 Above high normal 13 -150 (ng/mL) Final Performing Location [facility] - [address] [place] [address]
--- OUTSIDE RECORDS SUMMARY | 2024-08-08 08:41 | External Medical Summary | Summary of Care ---
Author Name Unknown Organization [facility] Address [address] [place] [address] Phone [phone] Care Team Providers Care Viticulture Teacher Name Role Phone Caroline Jc MD Primary Care Provid er Reason for Visit * Reason Onset Date Comments Test Results Lab 04/05/2024 Encounter Details Date Type Department Care Team (Late st Contact Info) Description 04/05/2024 Telephone Hematology/Oncology [facility] [place] [address] [place] [address] Pamela Holliday CRNP [address] [place] [address] Test Results Lab Allergies Active Allergy Reactions Criticality Noted Date Comments Amoxicillin Hives High 07/28/2017 documented as of this encounter (statuses as of 04/05/2024) Medications Medication Sig Dispensed Refills Start Date [...] as of this encounter (statuses as of 04/05/2024) Active Problems Problem Noted Date Diagnosed Date [...] as of this encounter (statuses as of 04/05/2024) Immunizations Name Administration Dates Next Due COVID-19 mRNA, LNP-s, No Pre serve, 2-Dose Series ([employer]) 10/15/2021,03/16/2021,02/23/2021 Covid-19, Mrna, Lnp-s, Pf, B ivalent, 30 Mcg, IM, 12 yrs and above ([employer]) 09/09/2022 DTaP Dipth/Tet/Acell Pertussis (Infanrix), Peds 04/13/1998,06/08/1995,1994,05/10,1994 [...] money to get more. Never true 03/25/2024 [place] Depression Scale Answer Date Recorded [place] Depression Scale Total 2 01/25/2024 The thought [...] Telephone Encounter - Gabrielle Prakash LPN - 04/05/2024 1:07 PM EDT My G sent. * Telephone Encounter - Gabrielle Prakash LPN - 04/05/2024 1:02 PM EDT ----- Message from Pamela Holliday sent at 04/05/2024 11:22 AM EDT ----- Labs showing improving iron deficiency anemia. Please request patient repeat lab work again one week prior to follow up appointment 05/21. documented in this encounter Plan of Treatment Upcoming Encounters Date Type Department Care Team (Late st Contact Info) Description 04/22/2024 3:00 PM EDT Office Visit Gynecology/Obstetrics [facility] [address] [place] [address] Bernardo Kate MD [address] [place] [phone] 05/21/2024 3:00 PM EDT Office Visit Hematology/Oncology [facility] [address] [place] [phone] Pamela Holliday CRNP [address] [facility] [place] [address] 07/10/2024 9:00 AM EDT Office Visit Gastroenterology, [facility] [address] [place] [address] Susy Holliday CRNP [address] [place] [address] Health Maintenance Due Date Last Done Comments [...] filedocumented as of this encounter Care Teams Viticulture Teacher Relationship Specialty Start Date End Date Caroline Jc MD [address] [place] [address] PCP - General Family Medicine 03/02/22 documented as of this encounter
--- OUTSIDE RECORDS SUMMARY | 2024-08-08 08:41 | External Medical Summary | Summary of Care ---
Author Name Unknown Organization [facility] Address [address] [place] [address] Phone [phone] Care Team Providers Care Indian Blanket Weaver Name Role Phone Caroline Jc MD Primary Care Provid er Reason for Visit * Reason Comments Follow Up 3 month follow up Encounter Details Date Type Department Care Team (Late st Contact Info) Description 05/21/2024 3:00 PM EDT Office Visit Hematology/Oncology [facility] [place] [address] [place] [phone] Pamela Holliday CRNP [address] [facility] [place] [phone] Antepartum anemia complicating * Allergies Active Allergy Reactions Criticality Noted Date Comments Amoxicillin Hives High 07/28/2017 documented as of this encounter (statuses as of 05/22/2024) Medications Medication Sig Dispensed Refills Start Date [...] Capsule Therapy Pack Take by mouth. Active documented as of this encounter (statuses as of 05/22/2024) Active Problems Problem Noted Date Diagnosed Date [...] as of this encounter (statuses as of 05/22/2024) Immunizations Name Administration Dates Next Due COVID-19 mRNA, LNP-s, No Pre serve, 2-Dose Series ([employer]) 10/15/2021,03/16/2021,02/23/2021 Covid-19, Mrna, Lnp-s, Pf, B ivalent, 30 Mcg, IM, 12 yrs and above ([employer]) 09/09/2022 DTaP Dipth/Tet/Acell Pertussis (Infan[employer]), Peds 04/13/1998,06/08/1995,1994,05/10,1994 [...] money to get more. Never true 03/25/2024 [place] Depression Scale Answer Date Recorded [place] Depression Scale Total 2 01/25/2024 The thought [...] Sign Reading Time Taken Comments Blood Pressure 98/64 05/21/2024 3:12 PM EDT Pulse 94 05/21/2024 3:12 PM EDT Temperature 37.3 C (99.1 F) 05/21/2024 3:12 PM ED T Respiratory Rate - - Oxygen Saturation 98% 05/21/2024 3:12 PM EDT Inhaled Oxygen Concentration - - Weight 51.6 kg (113 lb 11.2 oz) 05/21/2024 3:12 PM EDT Height - - Body Mass Index 20.8 02/09/2024 9:57 AM EDT documented in this encounter Progress Notes * Pamela Holliday CRNP - 05/21/2024 3:13 PM EDT Hematology/Oncology Outpatient Clinic [place] [address] Name: Rubia Umana Date: 05/21/2024 CHIEF COMPLAINT: Rubia Umana is a 29 year old female patient of TITA Calixto here today for f/u visit today. From Patient chart confirmed with patient. HEMATOLOGY/ONCOLOGY DIAGNOSIS: Anemia in TREATMENT HISTORY: IV Venofer 300 mg weekly x 4 infusions completed 03/07/24 -25 mg PO Benadryl pretreat -infused over 3 hours CURRENT TREATMENT: PNV -intolerant of oral iron HISTORY OF PRESENT ILLNESS: 28 year old year old female . GREG 08/02/24. Currently 13 weeks. History of gastroparesis and chronic constipation. Chronically anemic for at least the last five years but never addressed it. Denies HMB. Was prescribed Vitron C twice daily. Tried it last week but became nauseous and vomited it up. Intolerant of oral iron. Confirms currently taking PNV gummy without iron. Unsure about breast feeding. Colonoscopy in 2019 and EGD in 2021 - significant for gastric polyps. Feels much better off of oral iron. Is very fatigued but unsure if this is due to or anemia. Otherwise no changes other than nausea which is improving. Constipation also initially worsened but better off of oral iron. Does not smoke. Rarely drinks alcohol. Maternal aunt and uncle with colon cancer. HISTORY OF PRESENT ILLNESS: Rubia Umana is a 29 year old female with a history as outlined above. Currently here for f/u visit today. Now in third trimester of . Is feeling improved after receiving the infusions. Hasmore energy. Continues to take PNV. Past Medical History: Diagnosis Date Anemia Eczema Gastritis anemia Gastroparesis Follows with GI, [facility] GERD (gastroesophageal reflux disease) Overactive bladder Palpitations Past Surgical History: Procedure Laterality Date COLONOSCOPY, DIAGNOSTIC (RECTUM) 05/26/2020 normal bx / COLONOSCOPY FLEXIBLE PROXIMAL DIAGNOSTIC performed by Yane Harris DO at [facility] DENTAL SURGERY PROCEDURE NEC 2011 EGD, FLEXIBLE, DIAGNOSTIC 05/26/2020 normal bx / ESOPHAGOGASTRODUODENOSCOPY (EGD), FLEXIBLE, TRANSORAL, DIAGNOSTIC performed by Yane Harris DO at [facility] EGD, FLEXIBLE, DIAGNOSTIC 01/13/2022 benign gastric polyps / ESOPHAGOGASTRODUODENOSCOPY (EGD), FLEXIBLE, TRANSORAL, DIAGNOSTIC performedby Edilma Gómez MD at [facility] Social History Socioeconomic History Marital status: [...] Stability Do you currently live in a residential or have no steady place to sleep [...] Oral Capsule Therapy Pack Take by mouth. No current facility-administered medications for this visit. REVIEW OF SYSTEMS: See HPI - otherwise negative OBJECTIVE: Filed Vitals: 05/21/24 1512 BP: 98/64 Pulse: 94 Temp: 37.3 C (99.1 F) TempSrc: Tympanic SpO2: 98% Weight: 51.6 kg (113 lb 11.2 oz) Wt Readings from Last 5 Encounters: 05/21/24 51.6 kg (113 lb 11.2 oz) 05/21/24 51.6 kg (113 lb 12.8 oz) 05/21/24 51.3 kg (113 lb) 04/22/24 49.9 kg (110 lb) 03/26/24 48.2 kg (106 lb 3.2 oz) PHYSICAL EXAM: General Appearance: Normal - Healthy appearing patient in no acute distress Lungs/Thorax: Normal respiratory effort Extremities: No edema Neurologic: Normal - Grossly intact LABS: Results for orders placed or performed in visit on 05/06/24 50-G GESTATIONAL GLUCOSE, 1 HOUR Result Value Ref Range 50-g Gestational Glucose, 1 Hour 103 70 - 129 mg/dL ANEMIA CBC Result Value Ref Range WBC 6.17 4.00 - 10.80 K/uL RBC 3.46 3.85 - 5.15 M/uL HGB 10.3 (L) 12.0 - 15.3 g/dL HCT 31.4 (L) 36.0 - 45.2 % MCV 90.8 81.5 - 97.5 fL MCH 29.8 27.0 - 34.0 pg MCHC 32.8 32.0 - 36.0 g/dL RDW 16.6 11.5 - 15.5 % PLT 245 140 - 400 K/uL MPV 10.4 6.6 - 11.1 fL nRBCs 0 <=0 /100 WBCs DIFFERENTIAL, AUTOMATED Result Value Ref Range WBC 6.17 4.00 - 10.80 K/uL Neutrophils % 74.3 40.0 - 75.0 % Lymphocytes % 16.9 (L) 18.0 - 42.0 % Monocytes % 7.3 1.0 - 11.0 % Eosinophils % 0.6 0.0 - 6.0 % Basophils % 0.3 0.0 - 2.0 % Immature Granulocytes % 0.6 0.0 - 2.0 % Absolute Neutrophils 4.58 1.80 - 7.70 K/uL Absolute Lymphocytes 1.04 1.00 - 4.80 K/ul Absolute Monocytes 0.45 0.00 - 1.10 K/uL Absolute Eosinophils 0.04 0.00 - 0.70 K/uL Absolute Basophils 0.02 0.00 - 0.20 K/uL Absolute Immature Granulocytes 0.04 0.00 - 0.20 K/uL SYPHILIS ANTIBODY SCREEN Result Value Ref Range Syphilis Screen Interpretation Nonreactive Nonreactive RETICULOCYTE PANEL Result Value Ref Range Reticulocyte Percent 2.22 (H) 0.80 - 1.90 % Absolute Reticulocyte 76.4 31.3 - 100.1 K/uL Immature Reticuloctye Fraction 24.1 (H) 2.5 - 20.6 % Reticulocyte Hemoglobin 34.2 29.7 - 37.4 pg IRON SCREEN, INCLUDING TIBC Result Value Ref Range Iron 96 33 - 151 ug/dL Iron Binding Capacity 367 250 - 425 ug/dL Transferrin Saturation Percent 26 15 - 55 % FERRITIN Result Value Ref Range Ferritin 184 (H) 13 - 150 ng/mL CREATININE Result Value Ref Range Creatinine 0.5 0.5 - 1.0 mg/dL Estimated Glomerular Filtration Rate >90 >=60 mL/min TSH Result Value Ref Range TSH 1.16 0.27 - 4.20 uIU/mL FOLIC ACID Result Value Ref Range Folic Acid >20.0 >4.5 ng/mL VITAMIN B12 Result Value Ref Range Vitamin B12 344 232 - 1,245 pg/mL IMPRESSION/PLAN: Anemia in 28 year old year old female . GREG 08/02/24 Has just entered third trimester of IV Venofer 300 mg weekly x 4 infusions completed 03/07/24. Tolerated well with addition of Benadryl pretreat and prolonged infusion time. Lab results reviewed: Hgb improved to 10.3. Iron studies improved with ferritin 184 and TSAT 26% Vitamin B12 borderline low at 344 Residual anemia may be dilutional with baseline Hgb of 11 Recommend patient start OTC sublingual vitamin b12 supplement 1,000 mcg daily Continue PNV Standing order in place for monthly monitoring of CBCd, iron screen and ferritin RTC in six months with provider with cbc/diff, iron screen, ferritin, vitamin b12 and folic acid (ok for telemedicine) TITA Turpin documented in this encounter Nursing Notes * Khushboo Zaragoza, MED ASSIST - 05/21/2024 3:13 PM EDT Patient identifed by name and birthdate Do you have any concerns about pain management for today's visit? No Living Will or Advance Directive for Health Care as noted on the problem list. [facility] is a way you can talk to your provider on line through e-mail. Would you like to sign up? I can activate it for you? ALREADY ACTIVE Filed Vitals: 05/21/24 1512 BP: 98/64 Pulse: 94 Temp: 37.3 C (99.1 F) TempSrc: Tympanic SpO2: 98% Weight: 51.6 kg (113 lb 11.2 oz) Patient was instructed to not get up on the exam table/exam chair until directed and assisted by their provider; patient is to remain seated in the chair/ wheelchair/ exam table/ exam chair for fall prevention and safety reasons. Patient is aware to have assistance to step down off exam table/exam chair with personnel. Patient voiced full comprehension of instructions. documented in this encounter Plan of Treatment Upcoming Encounters Date Type Department Care Team (Late st Contact Info) Description 05/30/2024 2:00 PM EDT Office Visit Cardiology, [place] [address] [place] [address] Louis Perez DO [address] [place] [address] 06/04/2024 1:30 PM EDT Office Visit Gynecology/Obstetrics [facility] [address] [place] [address] Gabrielle Hinojosa CRNP [address] [place] [address] 06/04/2024 2:00 PM EDT Laboratory Laboratory, [facility] [address] [place] [phone] [facility] [address] [place] [address] 06/17/2024 4:30 PM EDT Office Visit Gynecology/Obstetrics [facility] [address] [place] [address] Beth Prakash PA-C [address] [place] [address] 11/21/2024 3:00 PM EST Telemedicine Hematology/Oncology [facility] [address] [place] [phone] Pamela Holliday CRNP 400 [facility] [place] [address] Scheduled Orders Name Type Priority Associated Diagnoses Orde r Schedule VITAMIN B12 Lab STAT Antepartum anemia complicating Expected: 11/22/2024 (Approximate), Expires: 05/23/2025 FOLIC ACID Lab STAT Antepartum anemia complicating Expected: 11/22/2024 (Approximate), Expires: 05/23/2025 Health Maintenance Due Date Last Done Comments [...] Primary Anemia, antepartum documented in this encounter Care Teams Indian Blanket Weaver Relationship Specialty Start Date End Date Caroline Jc MD [address] [place] [address] PCP - General Family Medicine 03/02/22 documented as of this encounter
--- OUTSIDE RECORDS SUMMARY | 2024-08-08 08:41 | External Medical Summary | Summary of Care ---
Author Name Unknown Organization [facility] Address [address] [place] [address] Phone [phone] Care Team Providers Care Electrical Installation Supervisor Name Role Phone Caroline Jc MD Primary Care Provid er Encounter Details Date Type Department Care Team (Late st Contact Info) Description 04/29/2024 Telephone Gynecology/Obstetrics, [place] [address] [facility] [place] [address] Liya Teran, [facility] [address] [place] [address] Allergies Active Allergy Reactions Criticality Noted Date Comments Amoxicillin Hives High 07/28/2017 documented as of this encounter (statuses as of 04/29/2024) Medications Medication Sig Dispensed Refills Start Date [...] as of this encounter (statuses as of 04/29/2024) Active Problems Problem Noted Date Diagnosed Date [...] as of this encounter (statuses as of 04/29/2024) Immunizations Name Administration Dates Next Due COVID-19 mRNA, LNP-s, No Pre serve, 2-Dose Series ([employer]) 10/15/2021,03/16/2021,02/23/2021 Covid-19, Mrna, Lnp-s, Pf, B ivalent, 30 Mcg, IM, 12 yrs and above ([employer]) 09/09/2022 DTaP Dipth/Tet/Acell Pertussis (Infanrix), Peds 04/13/1998,06/08/1995,1994,05/10,1994 [...] money to get more. Never true 03/25/2024 [place] Depression Scale Answer Date Recorded [place] Depression Scale Total 2 01/25/2024 The thought [...] encounter Miscellaneous Notes * Telephone Encounter - Lavinia Bettencourt LPN - 04/29/2024 2:18 PM EDT Pt notified and agreeable to all advice. She is going to increase hydration and touch base with pcpif no improvement. Will go to ER for chest pain, SOB or persistent symptoms. * Telephone Encounter - Lavinia Bettencourt LPN - 04/29/2024 2:[address] Theodore, please review prior advice. * Telephone Encounter - Liya Teran CNM - 04/29/2024 1:23 PM EDT Agree with Lavinia's advice. Any ongoing chest tightness that does not resolve with position changes or any chest pain, patient should go to the ED. I recommend increasing hydration as dehydration can be associated with palpitations. Let me know if ongoing concerns. Might also want to check with the concrete swimming pool installer provider. Thanks! Liya Teran CNM * Telephone Encounter - Lavinia Bettencourt LPN - 04/29/2024 9:56 AM EDT 25w0d Pt calling with concerns of a heavy feeling in her chest when laying down and being able to feel her heartbeat. Also feels a sensation of being unable to catch her breath but no actual SOB or breathing difficulty. This all goes away with standing up or propping herself up in bed. No dizziness or lightheadedness. Advised patient not to lay flat, to change positions frequently. Advised any chest pain, SOB to head to nearest ER immediately, pt verbalized understanding. Will review with provider for further advice. documented in this encounter Plan of Treatment Upcoming Encounters Date Type Department Care Team (Late st Contact Info) Description 05/06/2024 9:30 AM EDT [facility] [address] [facility] [place] [phone] Shayla Parham [address] [place] [address] 05/21/2024 12:30 PM EDT Office Visit Gastroenterology, [facility] [address] [facility] [place] [address] Susy Holliday CRNP [address] [place] [address] 05/21/2024 1:30 PM EDT Office Visit Gynecology/Obstetrics [facility] [address] [place] [address] Gabrielle Hinojosa CRNP [address] [place] [address] 05/21/2024 3:00 PM EDT Office Visit Hematology/Oncology [facility] [address] [facility] [phone] Pamela Holliday CRNP [address] [place] [address] Health Maintenance Due Date Last Done Comments [...] filedocumented as of this encounter Care Teams Electrical Installation Supervisor Relationship Specialty Start Date End Date Caroline Jc MD [address] [place] [facility] [place] [address] PCP - General Family Medicine 03/02/22 documented as of this encounter
--- OUTSIDE RECORDS SUMMARY | 2024-08-08 08:41 | External Medical Summary ---
Author Name Unknown Address Unknown Organization K01:LABORATORY [facility] - [address] [place] [address] Laboratory Report Ordering Provider Test Date Status WILL OLIVARES 05/06/2024 10:27:43 Final Observation Date Value Abnormality Reference (Units ) Status Folic Acid 05/06/2024 10:27:43 >20.0 >4.5 (ng/ mL) Final Performing Location [facility] - [address] [place] [address]
--- OUTSIDE RECORDS SUMMARY | 2024-08-08 08:41 | External Medical Summary ---
Author Name Unknown Address Unknown Organization K01:LABORATORY [facility] - [address] [facility] [place]. [facility] [address] Laboratory Report Ordering Provider Test Date Status WILL OLIVARES 05/06/2024 10:27:43 Final Observation Date Value Abnormality Reference (Units ) Status Treponema pallidum Ab [Presence] in Serum by Immunoassay 05/06/2024 10:27:43 Nonreactive Nonreactive Final No serologic evidence of syp hilis. No additional testing clinicially indicated at this time. Consider repeat testing in 2-4 weeks if acute or primary syphilis is suspected. Performing Location LAB[facility]ATORY [facility] - [address] [facility] [address]
--- OUTSIDE RECORDS SUMMARY | 2024-08-08 08:41 | External Medical Summary | Summary of Care ---
Author Name Unknown Organization [facility] Address [address] [place] [address] Phone [phone] Care Team Providers Care Product Support Specialist Name Role Phone Caroline Jc MD Primary Care Provid er Reason for Visit * Reason Comments Outpatient Testing Encounter Details Date Type Department Care Team (Late st Contact Info) Description 04/04/2024 1:00 PM EDT Laboratory Laboratory, [place] [address] [place] [phone] [place], Laboratory [address] [place], [place] [phone] Antepartum anemia complicating Allergies Active Allergy Reactions Criticality Noted Date Comments Amoxicillin Hives High 07/28/2017 documented as of this encounter (statuses as of 04/04/2024) Medications Medication Sig Dispensed Refills Start Date [...] as of this encounter (statuses as of 04/04/2024) Active Problems Problem Noted Date Diagnosed Date [...] as of this encounter (statuses as of 04/04/2024) Immunizations Name Administration Dates Next Due COVID-19 mRNA, LNP-s, No Pre serve, 2-Dose Series ([employer] 10/15/2021,03/16/2021,02/23/2021 Covid-19, Mrna, Lnp-s, Pf, B ivalent, 30 Mcg, IM, 12 yrs and above ([employer] 09/09/2022 DTaP Dipth/Tet/Acell Pertussis (Infanrix), Peds 04/13/1998,06/08/1995,1994,05/10,1994 [...] money to get more. Never true 03/25/2024 [place] Depression Scale Answer Date Recorded [place] Depression Scale Total 2 01/25/2024 The thought [...] 04/22/2024 3:00 PM EDT Office Visit Gynecology/Obstetrics [place] [address] [place] [address] Bernardo aKte MD [address] [place] [phone] 05/21/2024 3:00 PM EDT Office Visit Hematology/Oncology [facility] [place] [address] [place] [phone] Pamela Holliday CRNP [address] [place] [address] 07/10/2024 9:00 AM EDT Office Visit Gastroenterology, [facility] [place] [address] Susy Holliday CRNP [address] [place] [address] Pending Results Name Type Priority Associated Diagnoses Date /Time CBC WITH WBC DIFFERENTIAL Lab STAT Antepartum anemia complicating 04/04/2024 1:01 PM EDT IRON SCREEN, INCLUDING TIBC Lab STAT Antepartum anemia complicating 04/04/2024 1:01 PM EDT FERRITIN Lab STAT Antepartum anemia complicating 04/04/2024 1:01 PM EDT CBC Lab STAT Antepartum anemia complicating 04/04/2024 1:01 PM EDT DIFFERENTIAL, AUTOMATED Lab STAT Antepartum anemia complicating 04/04/2024 1:01 PM EDT Health Maintenance Due Date Last [...] antepartum documented in this encounter Care Teams Product Support Specialist Relationship Specialty Start Date End Date Caroline Jc MD [address] [place] [address] PCP - General Family Medicine 03/02/22 documented as of this encounter
--- OUTSIDE RECORDS SUMMARY | 2024-08-08 08:41 | External Medical Summary | Summary of Care ---
Author Name Unknown Organization [facility] Address [address] [place] [address] Phone [phone] Care Team Providers Care Event Producer Name Role Phone Caroline Jc MD Primary Care Provid er Encounter Details Date Type Department Care Team (Late st Contact Info) Description 05/21/2024 Telephone Gynecology/Obstetrics [facility] [address] [place] [address] Gabrielle Hinojosa CRNP [address] [place] [address] Allergies Active Allergy Reactions Criticality Noted Date Comments Amoxicillin Hives High 07/28/2017 documented as of this encounter (statuses as of 05/27/2024) Medications Medication Sig Dispensed Refills Start Date [...] as of this encounter (statuses as of 05/27/2024) Active Problems Problem Noted Date Diagnosed Date [...] as of this encounter (statuses as of 05/27/2024) Immunizations Name Administration Dates Next Due COVID-19 mRNA, LNP-s, No Pre serve, 2-Dose Series ([employer]) 10/15/2021,03/16/2021,02/23/2021 Covid-19, Mrna, Lnp-s, Pf, B ivalent, 30 Mcg, IM, 12 yrs and above ([employer]) 09/09/2022 DTaP Dipth/Tet/Acell Pertussis (Infanrix), Peds 04/13/1998,06/08/1995,1994,05/10,1994 [...] money to get more. Never true 03/25/2024 [place] Depression Scale Answer Date Recorded [place] Depression Scale Total 2 01/25/2024 The thought [...] Telephone Encounter - Elida Beckwith OSA - 05/21/2024 2:28 PM EDT Sounds good. Thanks Davy!! * Telephone Encounter - Davy Leung OSA - 05/21/2024 1:52 PM EDT Patient is scheduled on: 08/01/2024 Status: Meenakshi Time: 9:00 AM Length: 30 Visit Type: NEW CARDIOLOGY [[id number]] Reg Status: Verified Copay: $30.00 Provider: Mg Simon, DO Currently do not have any sooner appts, will place on wait list. And will also check for sooner ones coming up. * Telephone Encounter - Elida Beckwith OSA - 05/21/2024 1:46 PM EDT Please contact patient to schedule the soonest cardio appt. Thank you! documented in this encounter Plan of Treatment Upcoming Encounters Date Type Department Care Team (Late st Contact Info) Description 05/30/2024 2:00 PM EDT Office Visit Cardiology, [place] [address] [place] [address] Louis Perez DO [address] [place] [address] 06/04/2024 1:30 PM EDT Office Visit Gynecology/Obstetrics [facility] [address] [place] [address] Gabrielle Hinojosa CRNP [address] [place] [address] 06/04/2024 2:00 PM EDT Laboratory Laboratory, [facility] [address] [place] [phone] [facility] [address] [place] [address] 06/17/2024 4:30 PM EDT Office Visit Gynecology/Obstetrics [facility] [address] [place] [address] Beth Prakash PA-C [address] [place] [address] 11/21/2024 3:00 PM EST Telemedicine Hematology/Oncology [facility] [address] [facility] [place] [place] [phone] Pamela Holliday CRNP [address] [place] [address] Health Maintenance Due Date Last Done Comments [...] filedocumented as of this encounter Care Teams Event Producer Relationship Specialty Start Date End Date Caroline Jc MD [address] [place] [address] PCP - General Family Medicine 03/02/22 documented as of this encounter
--- OUTSIDE RECORDS SUMMARY | 2024-08-08 08:41 | External Medical Summary ---
Author Name Unknown Address Unknown Organization K01:[facility] - [address] [place] [address] Laboratory Report Ordering Provider Test Date Status WILL OLIVARES 05/06/2024 10:27:43 Final Observation Date Value Abnormality Reference (Units ) Status Ferritin 05/06/2024 10:27:43 184 Above high normal 13 -150 (ng/mL) Final Performing Location [facility] - [address] [place] [address]
--- OUTSIDE RECORDS SUMMARY | 2024-08-08 08:42 | External Medical Summary ---
Author Name Unknown Address Unknown Organization K01:LABORATORY [place] [address] [facility] [place] [address] Laboratory Report Ordering Provider Test Date Status JOE SILVA 02/22/2024 11:01:16 Final Observation Date Value Abnormality Reference (Units ) Status Chlamydia trachomatis rRNA [Presence] in Specimen by SHERIE with probe detection 02/22/2024 11:01:16 Negative Negative Final No Chlamydia trachomatis det ected by tea leaf reader-mediated nucleic acid amplification. Neisseria gonorrhoeae rRNA [ Presence] in Specimen by SHERIE with probe detection 02/22/2024 11:01:16 Negative Negative Final No Neisseria gonorrhoeae det ected by tea leaf reader-mediated nucleic acid amplification. Performing Location LABORATORY [place] - [address] [place] [address]
--- OUTSIDE RECORDS SUMMARY | 2024-08-08 08:42 | External Medical Summary | Summary of Care ---
Author Name Unknown Organization [facility] Address [address] [place] [address] Phone [phone] Care Team Providers Care Exercise Instructor Name Role Phone Caroline Jc MD Primary Care Provid er Reason for Visit * Reason Comments Infusion Venofer 11/16 Encounter Details Date Type Department Care Team (Latest Contact Info) Description 02/15/2024 2:30 PM EDT Hem/Onc Treatment Hematology/Oncology Treatment, [place] [address] [place] [phone] Destiny, Chair 1 Hem Onc [place] [address] [place] [address] Antepartum anemia complicating * Allergies Active Allergy Reactions Criticality Noted Date Comments Amoxicillin Hives High 07/28/2017 documented as of this encounter (statuses as of 03/27/2024) Medications Medication Sig Dispensed Refills Start Date End Date Status Probiotic Product (ALIGN) 4 MG Capsule Take 1 Capsule by mouth in the morning. 0 Active Polyethylene Glycol 3350 17 GM/SCOOP Oral Powder Take 17 g by mouth in the morning. 0 Active Lansoprazole 30 MG Oral Capsule Delayed Release (Prevacid) Take 1 Capsule by mouth in the morning. 90 Capsule 3 10/31/2023 Active Complete Oral Capsule Therapy Pack Take by mouth. 0 Active Unisom Simple Slumbers 2.5 MG Oral Tablet Chewable Take by mouth. 0 Active Iron-Vitamin C 65-125 MG Oral Tablet (Vitron C)Indications:Ante anemia complicating Take 1 Tablet by mouth in the morning and 1 Tablet in the evening. 60 Tablet 6 01/26/2024 02/22/2024 Discontinued (Medication/ Dose Changed) documented as of this encounter (statuses as of 03/27/2024) Active Problems Problem Noted Date Diagnosed Date [...] as of this encounter (statuses as of 03/27/2024) Immunizations Name Administration Dates Next Due COVID-19 mRNA, LNP-s, No Pre serve, 2-Dose Series ([employer]) 10/15/2021,03/16/2021,02/23/2021 Covid-19, Mrna, Lnp-s, Pf, B ivalent, 30 Mcg, IM, 12 yrs and above (Pfizer) 09/09/2022 DTaP Dipth/Tet/Acell Pertussis (Infanrix), Peds 04/13/1998,06/08/1995,1994,05/10,1994 [...] the money to buy more. Never true 07/13/20 23 Within the past 12 months, t he food you bought just didn't last and you didn't have money to get more. Never true 07/13/2023 Mccloud Depression Scale Answer Date Recorded Mccloud Depression Scale Total 2 01/25/2024 The thought [...] Sign Reading Time Taken Comments Blood Pressure 113/72 02/15/2024 3:30 PM EDT Pulse 88 02/15/2024 3:30 PM EDT Temperature 36.7 C (98 F) 02/15/2024 3:30 PM EDT Respiratory Rate 18 02/15/2024 3:30 PM EDT Oxygen Saturation 98% 02/15/2024 3:30 PM EDT Inhaled Oxygen Concentration - - Weight - - Height - - Body Mass Index - - documented in this encounter Nursing Notes * Connie Dubon RN - 02/15/2024 4:23 PM EDT Patient tolerated treatment well and was discharged in stable condition. * Kristi Capps LPN - 02/15/2024 3:33 PM EDT 1445: Pt arrived for Venofer 1/4 infusion. PIV in RFA. Pt tolerated well. VSS. No complaints at this time. documented in this encounter Plan of Treatment Upcoming Encounters Date Type Department Care Team (Late st Contact Info) Description 04/04/2024 9:20 AM EDT Laboratory Laboratory, [place] [address] [place] [address] [place] [address] [place] [address] 04/22/2024 3:00 PM EDT Office Visit Gynecology/Obstetrics [facility] [place] [address] Bernardo Kate MD [address] [place] [phone] 05/21/2024 3:00 PM EDT Office Visit Hematology/Oncology [facility] [place] [address] [facility] [phone] Pamela Holliday CRNP [address] [place], [place] [address] [address] 07/10/2024 9:00 AM EDT Office Visit Gastroenterology, [facility] [address] [place] [address] Susy Holliday CRNP [address] [place] [address] Health Maintenance Due Date Last Done Comments [...] MAR Action Action Date Dose Rate Site Iron Sucrose (Venofer) 300 mg in NSS 250 mL ivpb 300 mg, IV Piggyback, ONCE, 1 dose, On Jeni 02/15/24 at 1630, Administer over 90 Minutes Start Infusion 02/15/2024 2:49 PM EDT 300 mg 166.67 mL/hr NSS infusion 500 mL, Intravenous, at 50 mL/hr, CONTINUOUS, Starting on Jeni 02/15/24 at 1600, Until Jeni 02/15/24 at 6 Start Infusion 02/15/2024 2:49 PM EDT 500 mL 50 mL/hr documented in this encounter Care Teams Exercise Instructor Relationship Specialty Start Date End Date Caroline Jc MD [address] [place] [address] PCP - General Family Medicine 03/02/22 documented as of this encounter
--- OUTSIDE RECORDS SUMMARY | 2024-08-08 08:42 | External Medical Summary | Summary of Care ---
Author Name Unknown Organization [facility] Address [address] [place] [address] Phone [phone] Care Team Providers Care Scientific Glass Blower Name Role Phone Caroline Jc MD Primary Care Provid er Reason for Visit * Reason Comments Return Visit Encounter Details Date Type Department Care Team (Late st Contact Info) Description 02/22/2024 9:45 AM EDT Office Visit Gynecology/Obstetric [facility] [address] [facility] [place] [address] Liya Teran, [facility] [address] [facility] [place] [phone] Supervision of normal first , antepartum*; Antepartum anemia complicating ; Encounter for supervision of other normal , second trimester; Vaginal odor Allergies Active Allergy Reactions Criticality Noted Date Comments Amoxicillin Hives High 07/28/2017 documented as of this encounter (statuses as of 02/22/2024) Medications Medication Sig Dispensed Refills Start Date [...] as of this encounter (statuses as of 02/22/2024) Active Problems Problem Noted Date Diagnosed Date [...] as of this encounter (statuses as of 02/22/2024) Immunizations Name Administration Dates Next Due COVID-19 mRNA, LNP-s, No Pre serve, 2-Dose Series ([employer]) 10/15/2021,03/16/2021,02/23/2021 Covid-19, Mrna, Lnp-s, Pf, B ivalent, 30 Mcg, IM, 12 yrs and above ([employer]) 09/09/2022 DTaP Dipth/Tet/Acell Pertussis (Infanrix), Peds 04/13/1998,06/08/1995,1994,05/10,1994 [...] money to get more. Never true 07/13/2023 Ulen Depression Scale Answer Date Recorded Ulen Depression Scale Total 2 01/25/2024 The thought [...] Sign Reading Time Taken Comments Blood Pressure 108/62 02/22/2024 9:47 AM EDT Pulse - - Temperature - - Respiratory Rate - - Oxygen Saturation - - Inhaled Oxygen Concentration - - Weight 46.7 kg (103 lb) 02/22/2024 9:47 AM EDT Height - - Body Mass Index 18.84 02/09/2024 9:57 AM EDT documented in this encounter Progress Notes * Liya Teran CNM - 02/22/2024 9:52 AM EDT Rubia Umana is a 28 year old female here for her routine OB appointment at 15w3d Her Estimated Date of Delivery: 08/12/24 REVIEW OF SYSTEMS: She has not yet felt movement. Denies vaginal bleeding, LOF, contractions, N/V, vision changes, dizziness, and RUQ pain. Reports occasional headaches a few times per week, relieved with tylenol. She believes the iron infusion caused her to have more headaches. Had rectal bleeding last week and a few weeks ago which has resolved. First time was when she had tried oral iron. She is struggling with constipation. Usually takes Miralax. Has been taking Miralax.Has a bowel movement almost daily, harder stool. Not painful. Noticed some rectal itching. Also complains of clear/white vaginal discharge with slight yellowish tinge with mild odor in the last few weeks. Denies vaginal itching. Taking Lansoprazole for heartburn. Still taking Vitamin B6 and Unisom for nausea. Nausea significantly improved. PHYSICAL EXAM: Filed Vitals: 02/22/24 0947 BP: 108/62 Weight: 46.7 kg (103 lb) +FHT 140-150 bpm Speculum exam performed for vaginosis and GC/CT swabs only. Cervix not visualized. External vulvar anatomy and vaginal canals unremarkable. Small amount of physiologic white discharge noted. Sales Promotion Officer Documentation Provider requested lap winding machine operator. Name of lap winding machine operator: Miriam Keys LPN ASSESSMENT/PLAN: (O99.019) Antepartum anemia complicating Plan: -Not taking oral iron -Had an adverse reaction for first IV iron infusion; has another IV iron infusion scheduled for today with plan for benadryl prior to administration and a slower rate of infusion. (N89.8) Vaginal odor Plan: CHLAMYDIA TRACHOMATIS AND NEISSERIA GONORRHOEAE, AMPLIFIED PROBE, VAGINOSIS PANEL, PCR -Vaginosis and GC/CT swabs collected (Z34.00) Supervision of normal first , antepartum (primary encounter diagnosis) Plan: MATERNAL SERUM AFP, US PREG SINGLE/1ST GEST, 14 WEEKS OR LATER -Recommended discussing rectal bleeding with PCP. Recommended increasing fiber, fluids, and physical activity to decrease constipation. Continue Miralax for constipation. - anatomy u/s due in 4 weeks; ordered and patient to schedule - discussed MSAFP and role in detecting open neural tube defects. Patient elects MSAFP. Order placed. - RTO in 4 weeks Liya Teran CNM * Miriam Keys LPN - 02/22/2024 9:47 AM EDT Pt is currently 15w3d with an Estimated Date of Delivery: 08/12/24 - documented in this encounter Plan of Treatment Upcoming Encounters Date Type Department Care Team (Late st Contact Info) Description 02/22/2024 11:30 AM EDT Hem/Onc Treatment Hematology/Oncology Treatment, [address], [place] [phone] Destiny, Chair 4 Hem Onc [facility] [address] [place] [address] [place], [place] [address] 02/29/2024 2:30 PM EDT Hem/Onc Treatment Hematology/Oncology Treatment, [address], [place] [phone] Destiny, Chair 4 Hem Onc [facility] [address] [place] [address] [place], [place] [address] 03/07/2024 2:30 PM EDT Hem/Onc Treatment Hematology/Oncology Treatment, [address], [place] [address] Destiny, Chair 1 Hem Onc [facility] [address] [place] [address] [place], [place] [address] 03/26/2024 1:15 PM EDT Imaging Radiology [facility] [address] [facility] [address] 03/26/2024 2:45 PM EDT Office Visit Gynecology/Obstetrics [facility] 132 [facility] [place] [address] Liya Teran, [place] [address] [facility] [place] [address] 04/04/2024 9:20 AM EDT Laboratory Laboratory, [place] [address] [place] [phone] [place], Laboratory [address] [place] [address] 05/10/2024 9:00 AM EDT Office Visit Gastroenterology, [facility] [address] [facility] [place] [address] Angelita Mcleod CRNP [address] [facility] [address] 05/21/2024 3:00 PM EDT Office Visit Hematology/Oncology [facility] 200 [facility], [place] [phone] Pamela Holliday CRNP [address] [facility] [place] [address] Pending Results Name Type Priority Associated Diagnoses Date /Time MATERNAL SERUM AFP Lab Routine Supervision of normal first , antepartum 02/22/2024 10:28 AM EDT Scheduled Orders Name Type Priority Associated Diagnoses Orde r Schedule US PREG SINGLE/1ST GEST, 14 WEEKS OR LATER Medical Imaging Routine Supervision of normal first , antepartum Encounter for supervision of other normal , second trimester Expected: 03/23/2024, Expires: 03/23/2025 CHLAMYDIA TRACHOMATIS AND NEISSERIA GONORRHOEAE, AMPLIFIED PROBE Lab Routine Vaginal odor Expected: 02/22/2024, Expires: 02/21/2025 VAGINOSIS PANEL, PCR Lab Routine Vaginal odor Expected: 02/22/2024, Expires: 02/21/2025 Health Maintenance Due Date Last Done Comments COVID-19 Vaccine ( season) 2023 09/09/2022, 10/15/2021, 03/16/2021, Additional history exists Depression Screening 09/16/2023 09/16/2022 Pap Smear 09/22/2024 09/22/2021, 09/13, 09/26/2018, Additional [...] antepartum- Primary Antepartum anemia complicating Anemia, antepartum Encounter for supervision of other normal , second trimester Vaginal odor Unspecified symptom associated with female genital organs documented in this encounter Care Teams Scientific Glass Blower Relationship Specialty Start Date End Date Caroline Jc MD [address] [place] [address] PCP - General Family Medicine 03/02/22 documented as of this encounter
--- OUTSIDE RECORDS SUMMARY | 2024-08-08 08:42 | External Medical Summary | Summary of Care ---
Author Name Unknown Organization [facility] Address [address] [place] [address] Phone [phone] Care Team Providers Care Svp Research And Strategic Analysis Name Role Phone Caroline cJ MD Primary Care Provid er Reason for Visit * Reason Comments Infusion Venofer 2/4 Encounter Details Date Type Department Care Team (Latest Contact Info) Description 02/22/2024 11:30 AM EDT Hem/Onc Treatment Hematology/Oncology Treatment, [place] [address] [place] [phone] Destiny, Chair 4 Hem Onc [place] [address] [place] [address] Antepartum anemia complicating * Allergies Active Allergy Reactions Criticality Noted Date Comments Amoxicillin Hives High 07/28/2017 documented as of this encounter (statuses as of 03/26/2024) Medications Medication Sig Dispensed Refills Start Date [...] Oral Tablet Chewable Take by mouth. 0 Activ e documented as of this encounter (statuses as of 03/26/2024) Active Problems Problem Noted Date Diagnosed Date [...] as of this encounter (statuses as of 03/26/2024) Immunizations Name Administration Dates Next Due COVID-19 mRNA, LNP-s, No Pre serve, 2-Dose Series ([employer]) 10/15/2021,03/16/2021,02/23/2021 Covid-19, Mrna, Lnp-s, Pf, B ivalent, 30 Mcg, IM, 12 yrs and above ([employer]) 09/09/2022 DTaP Dipth/Tet/Acell Pertussis (Infanrix), Peds 04/13/1998,06/08/1995,1994,05/10,1994 [...] money to get more. Never true 07/13/2023 Wright Depression Scale Answer Date Recorded Wright Depression Scale Total 2 01/25/2024 The thought [...] Sign Reading Time Taken Comments Blood Pressure 109/75 02/22/2024 12:50 PM EDT Pulse 95 02/22/2024 12:50 PM EDT Temperature 37.2 C (98.9 F) 02/22/2024 12:50 PM E DT Respiratory Rate 18 02/22/2024 12:50 PM EDT Oxygen Saturation 99% 02/22/2024 12:50 PM EDT Inhaled Oxygen Concentration - - Weight - - Height - - Body Mass Index - - documented in this encounter Nursing Notes * Kristi Capps LPN - 02/22/2024 12:51 PM EDT 1135: Pt arrived for Venofer 2/4 infusion. PIV in LFA. Pt tolerated well. Pt reports that when she left last time she got a hives like a rash on her legs. Benadryl given per order. Rate slowed per order. VSS. No complaints at this time. 1450: Pt tolerated Venofer infusion well. PIV removed intact. Pt requested to stay for an extra 15 minutes to see if her legs begin to break out. 1510: Pts legs remain rash free. Pt feels she is okay to leave. Pt to return in one week. Discharged in stable condition. documented in this encounter Plan of Treatment Upcoming Encounters Date Type Department Care Team (Late st Contact Info) Description 04/04/2024 9:20 AM EDT Laboratory Laboratory, [place] [address] [place] [place] [address] Stacy, [facility] [address] [place] [address] 04/22/2024 3:00 PM EDT Office Visit Gynecology/Obstetrics [facility] [address] [place] [address] Bernardo Kate MD [address] [place] [phone] 05/21/2024 3:00 PM EDT Office Visit Hematology/Oncology [facility] [place] [facility] [phone] Pamela Holliday CRNP [address] [place] [address] 07/10/2024 9:00 AM EDT Office Visit Gastroenterology, [facility] [address] [place] [address] Susy Holliday CRNP [address] [place] [address] Health Maintenance Due Date Last Done Comments [...] 25 mg 25 mg, Oral, ONCE, On Jeni 02/22/24 at 1215, For 1 dose Given 02/22/2024 11:30 AM EDT 25 mg Iron Sucrose (Venofer) 300 mg in NSS 250 mL ivpb 300 mg, IV Piggyback, ONCE, 1 dose, On Jeni 02/22/24 at 1215, Administer over 180 Minutes, Protect from light Start Infusion 02/22/2024 11:40 AM EDT 300 mg 83.33 mL/hr NSS infusion 500 mL, Intravenous, at 50 mL/hr, CONTINUOUS, Starting on Jeni 02/22/24 at 1245, Until Jeni 02/22/24 at 1919 Start Infusion 02/22/2024 11:40 AM EDT 500 mL 50 mL/hr documented in this encounter Care Teams Svp Research And Strategic Analysis Relationship Specialty Start Date End Date Caroline Jc MD [address] [place] [address] PCP - General Family Medicine 03/02/22 documented as of this encounter
--- OUTSIDE RECORDS SUMMARY | 2024-08-08 08:42 | External Medical Summary | Summary of Care ---
Author Name Unknown Organization [facility] Address [address] [facility] [place] [address] Phone [phone] Care Team Providers Care Corporate Safety Coordinator Name Role Phone Caroline Jc MD Primary Care Provid er Encounter Details Date Type Department Care Team (Late st Contact Info) Description 03/28/2024 Telephone Gynecology/Obstetrics [facility] 132 [facility] [place] [address] Liya Teran, [facility] [address] [facility] [phone] Allergies Active Allergy Reactions Criticality Noted Date Comments Amoxicillin Hives High 07/28/2017 documented as of this encounter (statuses as of 04/01/2024) Medications Medication Sig Dispensed Refills Start Date [...] as of this encounter (statuses as of 04/01/2024) Active Problems Problem Noted Date Diagnosed Date [...] as of this encounter (statuses as of 04/01/2024) Immunizations Name Administration Dates Next Due COVID-19 mRNA, LNP-s, No Pre serve, 2-Dose Series ([employer]) 10/15/2021,03/16/2021,02/23/2021 Covid-19, Mrna, Lnp-s, Pf, B ivalent, 30 Mcg, IM, 12 yrs and above ([employer]) 09/09/2022 DTaP Dipth/Tet/Acell Pertussis (Infanrix), Peds 04/13/1998,06/08/1995,1994,05/10,1994 [...] money to get more. Never true 03/25/2024 [place] Depression Scale Answer Date Recorded [place] Depression Scale Total 2 01/25/2024 The thought [...] Telephone Encounter - Miriam Keys LPN - 03/28/2024 8:21 AM EDT ----- Message from Liya Teran CNM sent at 03/27/2024 5:11 PM EDT ----- Please let patient know her anatomy ultrasound was normal. Thanks! Liya Teran CNM documented in this encounter Plan of Treatment Upcoming Encounters Date Type Department Care Team (Late st Contact Info) Description 04/04/2024 1:00 PM EDT Laboratory Laboratory, [place] [address] [facility] [phone] [place], Laboratory [address] [facility], [place] [address] 04/22/2024 3:00 PM EDT Office Visit Gynecology/Obstetrics [facility] [place] [address] Bernardo Kate MD 132 [facility] [place] [phone] 05/21/2024 3:00 PM EDT Office Visit Hematology/Oncology [facility] 200 [place] [phone] Pamela Holliday CRNP [address] [place], [place] [address] [place] [address] 07/10/2024 9:00 AM EDT Office Visit Gastroenterology, [facility] 132 [facility] [place] [address] Susy Holliday CRNP 132 [facility] [place] [address] Health Maintenance Due Date Last Done Comments [...] filedocumented as of this encounter Care Teams Corporate Safety Coordinator Relationship Specialty Start Date End Date Caroline Jc MD [address] [place] [address] PCP - General Family Medicine 03/02/22 documented as of this encounter
--- OUTSIDE RECORDS SUMMARY | 2024-08-08 08:42 | External Medical Summary ---
Author Name Unknown Address Unknown Organization : Laboratory Report Ordering Provider Test Date Status JOE SILVA 02/22/2024 10:28:28 Final Observation Date Value Abnormality Reference (Units ) Status INTERPRETATION 02/22/2024 10:28:28 SEE BELOW Final Screen negative for open NTD . RISK FOR ONTD 02/22/2024 10:28:28 <1:5000 Final CALC'D GESTATIONAL AGE 0402/22/2024 10:28:28 15.4 Final AFP, SERUM 02/22/2024 10:28:28 28.1 (ng/mL) Final AFP MOM 02/22/2024 10:28:28 0.69 Final Reference Range:
NTD <2 .50
IDD <1.90
TWINS <4.00
TWINS IDD <3.50
TRIPLETS <4.50
The AFP test result indicates that this patient is
screen negative for open NTD. It should be noted
that normal test results can never guarantee the
of a normal baby and that 2-3% of newborns
have some type of physical or mental defect, many
of which are undetectable through any known
diagnostic technique.
This is a screening test, not a diagnostic test.
This risk assessment report is based in part on
demographic data provided by the ordering
physician. Please notify the laboratory promptly
if any data are incorrect. For assistance with
recalculations, please call your local [facility] laboratory. For assistance with
interpretation of these results, please contact
your Local [facility] genetic counselor or
call [phone] ([phone]).
Interpretive Cutoffs
Screen Positive for Open NTD:
> or = 2.50 adjusted MOM
> or = 1.90 adjusted MOM for insulin- dependent diabetics
> or = 4.00 adjusted MOM for twins
> or = 3.50 adjusted MOM for twins insulin-dependent diabetics
> or = 4.50 adjusted MOM for triplets
For additional information, please refer to
[email or web address].[email or web address]/faq/[email or web address]
(This link is being provided for
informational/educational purposes only.) DATE OF 02/22/2024 10:28:28 1995 Final COLLECTION DATE 02/22/2024 10:28:28 02/22/2024 Final MATERNAL WEIGHT 02/22/2024 10:28:28 102 (lbs ) Final EST'D DATE OF DELIVERY 02/22/2024 10:28:28 08/12/2024 Final GREG DETERMINED BY 02/22/2024 10:28:28 LMP Final MOTHER'S ETHNIC ORIGIN 02/22/2024 10:28:28 WHITE Final NUMBER OF FETUSES 02/22/2024 10:28:28 1 Final INSULIN DEPEND DIABETIC 02/22/2024 10:28:28 NO Final REPEAT SPECIMEN 02/22/2024 10:28:28 NO Final HX OF NEURAL TUBE DEFECTS 02/22/2024 10:28:28 NO Final PREV DOWN SYND 02/22/2024 10:28:28 NO Final DONOR EGG 02/22/2024 10:28:28 NO Final DONOR AGE: EGG RETRIEVAL 02/22/2024 10:28:28 NOT GIVEN Final Test performed by [facility]
[address] [facility],
[place] [address]

Medical Records Coordinator: Zaynab Arndt MD,PHD,ASHER
Test Reported by [facility],
[facility],
[address] [place], [place]
Davy Gibson M.D., Ph.D., Director of Laboratories
, [place] [id number] Performing Location
--- OUTSIDE RECORDS SUMMARY | 2024-08-08 08:42 | External Medical Summary | Summary of Care ---
Author Name Unknown Organization [facility] Address [address] [place] [address] Phone [phone] Care Team Providers Care Med Surg Nurse Name Role Phone Caroline Jc MD Primary Care Provid er Reason for Visit * Reason Comments IV Therapy Venofer Encounter Details Date Type Department Care Team (Latest Contact Info) Description 03/07/2024 12:30 PM EDT Hem/Onc Treatment Hematology/Oncology Treatment, [place] [address] [place] [address] Destiny, Chair 2 Hem Onc [facility] 200 [place] [address] Antepartum anemia complicating * Allergies Active Allergy Reactions Criticality Noted Date Comments Amoxicillin Hives High 07/28/2017 documented as of this encounter (statuses as of 03/22/2024) Medications Medication Sig Dispensed Refills Start Date [...] as of this encounter (statuses as of 03/22/2024) Active Problems Problem Noted Date Diagnosed Date [...] as of this encounter (statuses as of 03/22/2024) Immunizations Name Administration Dates Next Due COVID-19 mRNA, LNP-s, No Pre serve, 2-Dose Series ([employer]) 10/15/2021,03/16/2021,02/23/2021 Covid-19, Mrna, Lnp-s, Pf, B ivalent, 30 Mcg, IM, 12 yrs and above ([employer]) 09/09/2022 DTaP Dipth/Tet/Acell Pertussis (Infanrix), Peds 04/13/1998,06/08/1995,1994,05/10,1994 [...] money to get more. Never true 07/13/2023 [place] Depression Scale Answer Date Recorded [place] Depression Scale Total 2 01/25/2024 The thought [...] Sign Reading Time Taken Comments Blood Pressure 118/76 03/07/2024 12:50 PM EDT Pulse 91 03/07/2024 12:50 PM EDT Temperature 36.8 C (98.2 F) 03/07/2024 12:50 PM E DT Respiratory Rate 16 03/07/2024 12:50 PM EDT Oxygen Saturation 98% 03/07/2024 12:50 PM EDT Inhaled Oxygen Concentration - - Weight - - Height - - Body Mass Index - - documented in this encounter Nursing Notes * Kristi Capps LPN - 03/07/2024 3:57 PM EDT 1557: Pt tolerated Venofer infusion well. PIV removed intact. Pt to follow up with MD and have labsin 4 weeks. Discharged in stable condition. * Theresa Lala LPN - 03/07/2024 12:50 PM EDT Patient arrived Chair 8 for IV therapy Venofer. Vital signs are stable. IV access successful at theright cephalic vein. Patient tolerated IV access, saline flush with ease. Patient was administered Benadryl 25mg oral capsule prior to infusion. documented in this encounter Plan of Treatment Upcoming Encounters Date Type Department Care Team (Late st Contact Info) Description 03/26/2024 1:15 PM EDT Imaging Radiology [facility] 2nd [facility] 132 [facility] [address] 03/26/2024 2:45 PM EDT Office Visit Gynecology/Obstetrics [facility] 132 [facility] [place] [address] Liya Teran, [address] [place] [address] 04/04/2024 9:20 AM EDT Laboratory Laboratory, [place] [address] [facility] [phone] [place], Laboratory [address] [facility] [address] 05/21/2024 3:00 PM EDT Office Visit Hematology/Oncology [facility] [place] [address] [facility] [address] Pamela Holliday CRNP [address] [place] [address] 07/10/2024 9:00 AM EDT Office Visit Gastroenterology, [facility] [address] [place] [address] Susy Holliday CRNP [address] [place] [address] Health Maintenance Due Date Last Done Comments [...] mg 25 mg, Oral, ONCE, On Jeni 03/07/24 at 1315, For 1 dose Given 03/07/2024 12:45 PM EDT 25 mg Iron Sucrose (Venofer) 300 mg in NSS 250 mL ivpb 300 mg, IV Piggyback, ONCE, 1 dose, On Jeni 03/07/24 at 1315, Administer over 180 Minutes, Protect from light Start Infusion 03/07/2024 12:46 PM EDT 300 mg 96.67 mL/hr NSS infusion 500 mL, Intravenous, at 50 mL/hr, CONTINUOUS, Starting on Jeni 03/07/24 at 1345, Until Jeni 03/07/24 at 1958 Start Infusion 03/07/2024 12:46 PM EDT 500 mL 50 mL/hr documented in this encounter Care Teams Med Surg Nurse Relationship Specialty Start Date End Date Caroline Jc MD [address] [place] [address] PCP - General Family Medicine 03/02/22 documented as of this encounter
--- OUTSIDE RECORDS SUMMARY | 2024-08-08 08:42 | External Medical Summary | Summary of Care ---
Author Name Unknown Organization [facility] Address [address] [place] [address] Phone [phone] Care Team Providers Care Drupal Web Developer Name Role Phone Caroline Jc MD Primary Care Provid er Reason for Visit * Reason Comments IV Therapy Venofer Encounter Details Date Type Department Care Team (Latest Contact Info) Description 02/29/2024 10:00 AM EDT Hem/Onc Treatment Hematology/Oncology Treatment, [place] [address] [place] [phone] Destiny, Chair 11 Hem Onc [facility] 200 [place], [place] [phone] Antepartum anemia complicating * Allergies Active Allergy Reactions Criticality Noted Date Comments Amoxicillin Hives High 07/28/2017 documented as of this encounter (statuses as of 02/29/2024) Medications Medication Sig Dispensed Refills Start Date [...] as of this encounter (statuses as of 02/29/2024) Active Problems Problem Noted Date Diagnosed Date [...] as of this encounter (statuses as of 02/29/2024) Immunizations Name Administration Dates Next Due COVID-19 mRNA, LNP-s, No Pre serve, 2-Dose Series ([employer]) 10/15/2021,03/16/2021,02/23/2021 Covid-19, Mrna, Lnp-s, Pf, B ivalent, 30 Mcg, IM, 12 yrs and above ([employer]) 09/09/2022 DTaP Dipth/Tet/Acell Pertussis (Infanrix), Peds 04/13/1998,06/08/1995,1994,05/10,1994 [...] money to get more. Never true 07/13/2023 [place] Depression Scale Answer Date Recorded [place] Depression Scale Total 2 01/25/2024 The thought [...] Sign Reading Time Taken Comments Blood Pressure 111/74 02/29/2024 10:17 AM EDT Pulse 89 02/29/2024 10:17 AM EDT Temperature 36.8 C (98.3 F) 02/29/2024 10:17 AM E DT Respiratory Rate 16 02/29/2024 10:17 AM EDT Oxygen Saturation 99% 02/29/2024 10:17 AM EDT Inhaled Oxygen Concentration - - Weight - - Height - - Body Mass Index - - documented in this encounter Nursing Notes * Theresa Lala LPN - 02/29/2024 2:30 PM EDT Patient completed IV Venofer. Patient opted to stay for additional 20 min for observation of her own recommendation. IV access was discontinued, site cleaned and bandaged. Patient discharged in stable condition. * Theresa Lala LPN - 02/29/2024 10:30 AM EDT Patient arrived Chair 8 for IV therapy Venofer. Vital signs stable. IV attempt at the right antecubital. documented in this encounter Plan of Treatment Upcoming Encounters Date Type Department Care Team (Late st Contact Info) Description 03/07/2024 12:30 PM EDT Hem/Onc Treatment Hematology/Oncology Treatment, [place] [address] [place] [address] [place], Chair 2 Hem Onc [place] [address] [place] [address] 03/26/2024 1:15 PM EDT Imaging Radiology [facility] 2nd [facility] 132 [facility] [address] 03/26/2024 2:45 PM EDT Office Visit Gynecology/Obstetrics [facility] 132 [facility] [place] [address] Liya Teran, WEST [address] [place] [address] [place] [address] 04/04/2024 9:20 AM EDT Laboratory Laboratory, [place] [address] [facility] [phone] [place], Laboratory [address] [facility] [address] 05/21/2024 3:00 PM EDT Office Visit Hematology/Oncology Nelosn Dixon [place] 200 [facility] [place] [address] Pamela Holliday CRNP [address] [place] [address] Health Maintenance Due Date Last Done Comments [...] ONCE PRN Other, Hypersensitivity Reaction, Starting on Jeni 02/29/24 at 0959, Until Mon03/01/24 at 0958, For 24 hours EPINEPHrine 1 MG/ML inj 0.3 mg 0.3 mg, Intramuscular, ONCE PRN Other, Hypersensitivity Reaction or Anaphylaxis, Starting on Mon02/29/24 at 0959, Until Mon03/01/24 at 0958, For 24 hours hEParin 100 UNIT/ML Lock Flush inj 500 Units 500 Units (5 mL), IV Lock, PRN Other, IV Flush, Starting on Mon02/29/24 at 0959, Until Mon03/01/24 at 0958, For 24 hours, Do not flush if lock, PICC, or central line not in place; IV infusing or unable to flush. Hydrocortisone Sod Suc (PF) (Solu-Cortef) inj 100 mg 100 mg, IV Push, ONCE PRN Other, Hypersensitivity Reaction, Starting on Mon02/29/24 at 0959, Until Mon03/01/24 at 0958, For 24 hours NSS infusion 500 mL, Intravenous, at 50 mL/hr, CONTINUOUS, Starting on Mon02/29/24 at 1100, Until Mon02/29/24 at 2059 Start Infusion 02/29/2024 10:20 AM EDT 500 mL 50 mL/hr oxygen GAS Inhalation, OXYGEN, First dose on Mon02/29/24 at 1030, Until Discontinued, Device/Managed by: Low Flow Device, [...] Push, PRN Other, IV Flush, Starting on Mon02/29/24 at 0959, Until Mon03/01/24 at 0958, For 24 hours, Do not flush if lock, PICC, or central line not in place; IV infusing or unable to flush. Inactive Administered Medications - up to 3 most recent administrations Medication Order MAR Action Action Date Dose Rate Site diphenhydrAMINE (Benadryl) cap 25 mg 25 mg, Oral, ONCE, On Jeni 02/29/24 at 1030, For 1 dose Given 02/29/2024 10:21 AM EDT 25 mg Iron Sucrose (Venofer) 300 mg in NSS 250 mL ivpb 300 mg, IV Piggyback, ONCE, 1 dose, On Jeni 02/29/24 at 1030, Administer over 180 Minutes, Protect from light Start Infusion 02/29/2024 10:24 AM EDT 300 mg 83.33 mL/hr documented in this encounter Care Teams Drupal Web Developer Relationship Specialty Start Date End Date Caroline Jc MD [address] [place] [facility] [place] [address] PCP - General Family Medicine 03/02/22 documented as of this encounter
--- OUTSIDE RECORDS SUMMARY | 2024-08-08 08:42 | External Medical Summary ---
Author Name Unknown Address Unknown Organization K01:[facility] [address] [facility] [address] Laboratory Report Ordering Provider Test Date Status JOE SILVA 02/22/2024 11:01:16 Final Observation Date Value Abnormality Reference (Units ) Status Bacterial vaginosis [Interpretation] in Vaginal fluid Qualitative 02/22/2024 11:01:16 Negative Negative Final Negative for Bacterial Vagin osis. Correlate results with other clinical findings. Little sp DNA [Presence] in Vaginal fluid by Probe 02/22/2024 11:01:16 Negative Negative Final No Little species group RNA detected. Correlate results with other clinical findings. Little glabrata RNA [Presen ce] in Vaginal fluid by SHERIE with probe detection 02/22/2024 11:01:16 Negative Negative Final No Little glabrata RNA dete cted. Correlate results with other clinical findings. Trichomonas vaginalis DNA [P resence] in Vaginal fluid by Probe 02/22/2024 11:01:16 Negative Negative Final No Trichomonas vaginalis RNA detected. Performing Location [facility] [address] [facility] [address]
--- OUTSIDE RECORDS SUMMARY | 2024-08-08 08:42 | External Medical Summary | Summary of Care ---
Author Name Unknown Organization [facility] Address [address] [place] [address] Phone [phone] Care Team Providers Care Inbound Sales Manager Name Role Phone Caroline Jc MD Primary Care Provid er Reason for Visit * Reason Comments Outpatient Testing Encounter Details Date Type Department Care Team (Late st Contact Info) Description 02/22/2024 10:50 AM EDT Laboratory Laboratory, [facility] 132 [place] [phone] [facility] 132 [place], [place] [phone] Arrived Allergies Active Allergy Reactions Criticality Noted Date [...] mRNA, LNP-s, No Pre serve, 2-Dose Series ([employer] 10/15/2021,03/16/2021,02/23/2021 Covid-19, Mrna, Lnp-s, Pf, B ivalent, [...] money to get more. Never true 07/13/2023 [place] Depression Scale Answer Date Recorded [place] Depression Scale Total 2 01/25/2024 The thought [...] 11:30 AM EDT Hem/Onc Treatment Hematology/Oncology Treatment, [place] [address] [place] [phone] Destiny, Chair 4 Hem Onc [place] [address] [place], [place] [address] 02/29/2024 2:30 PM EDT Hem/Onc Treatment Hematology/Oncology Treatment, [place] 200 [facility] [phone] [place], Chair 4 Hem Onc [place] [address] [place], [place] [address] 03/07/2024 2:30 PM EDT Hem/Onc Treatment Hematology/Oncology Treatment, [place] 200 [facility], [place] [phone] Destiny, Chair 1 Hem Onc [place] 200 [facility] [place], [place] [address] 03/26/2024 1:15 PM EDT Imaging Radiology [facility] 2nd [facility] 132 [facility] [place] [address] 03/26/2024 2:45 PM EDT Office Visit Gynecology/Obstetrics [facility] 132 [facility] [place] [address] Liya Teran, [address] [place] [address] 04/04/2024 9:20 AM EDT Laboratory Laboratory, [place] [address] [place] [address] [facility] [address] [place] [address] 05/10/2024 9:00 AM EDT Office Visit Gastroenterology, [facility] 132 [facility] [place] [address] Angelita Mcleod CRNP 132 [facility] [place] [address] 05/21/2024 3:00 PM EDT Office Visit Hematology/Oncology Nelson Dixon [place] 200 [facility] [place], [place] [address] Pamela Holliday CRNP [address] [place] [address] Health Maintenance Due Date Last Done Comments [...] filedocumented as of this encounter Care Teams Inbound Sales Manager Relationship Specialty Start Date End Date Caroline Jc MD [address] [place] [address] PCP - General Family Medicine 03/02/22 documented as of this encounter
--- OUTSIDE RECORDS SUMMARY | 2024-08-08 08:42 | External Medical Summary | Summary of Care ---
Author Name Unknown Organization [facility] Address [address] [facility] [place] [address] Phone [phone] Care Team Providers Care Technical Photographer Name Role Phone Caroline Jc MD Primary Care Provid er Encounter Details Date Type Department Care Team (Late st Contact Info) Description 03/01/2024 Telephone Gynecology/Obstetrics [facility] 132 [facility] [place] [address] Liya Teran, [facility] 400 [facility] [place] [phone] Allergies Active Allergy Reactions Criticality Noted Date Comments Amoxicillin Hives High 07/28/2017 documented as of this encounter (statuses as of 03/01/2024) Medications Medication Sig Dispensed Refills Start Date [...] as of this encounter (statuses as of 03/01/2024) Active Problems Problem Noted Date Diagnosed Date [...] as of this encounter (statuses as of 03/01/2024) Immunizations Name Administration Dates Next Due COVID-19 mRNA, LNP-s, No Pre serve, 2-Dose Series ([employer]) 10/15/2021,03/16/2021,02/23/2021 Covid-19, Mrna, Lnp-s, Pf, B ivalent, 30 Mcg, IM, 12 yrs and above ([employer]) 09/09/2022 DTaP Dipth/Tet/Acell Pertussis (Infanrix), Peds 04/13/1998,06/08/1995,1994,05/10,1994 [...] money to get more. Never true 07/13/2023 [place] Depression Scale Answer Date Recorded [place] Depression Scale Total 2 01/25/2024 The thought [...] Telephone Encounter - Miriam Keys LPN - 03/01/2024 4:01 PM EDT ----- Message from Liya Teran CNM sent at 03/01/2024 3:56 PM EDT ----- Please let patient know her MSAFP screening was negative for open neural tube defects. Thanks! Prosper Teran CNM documented in this encounter Plan of Treatment Upcoming Encounters Date Type Department Care Team (Late st Contact Info) Description 03/07/2024 12:30 PM EDT Hem/Onc Treatment Hematology/Oncology Treatment, [place] 200 [facility], [place] [phone] Destiny, Chair 2 Hem Onc [facility] 200 [facility] [address] 03/26/2024 1:15 PM EDT Imaging Radiology [facility] [address] [place] [address] 03/26/2024 2:45 PM EDT Office Visit Gynecology/Obstetrics [address] [place] [address] Liya Teran CNM 400 [facility] [place] [address] 04/04/2024 9:20 AM EDT Laboratory Laboratory, [place] [address] [place] [phone] [place], [facility] [address] [place] [address] 05/21/2024 3:00 PM EDT Office Visit Hematology/Oncology [facility] 200 [facility] [phone] Pamela Holliday CRNP 400 [facility] [place] [address] Health Maintenance Due Date Last Done Comments [...] filedocumented as of this encounter Care Teams Technical Photographer Relationship Specialty Start Date End Date Caroline Jc MD [address] [place] [address] PCP - General Family Medicine 03/02/22 documented as of this encounter
--- OUTSIDE RECORDS SUMMARY | 2024-08-08 08:42 | External Medical Summary | Summary of Care ---
Author Name Unknown Organization [facility] Address [address] [place] [address] Phone [phone] Care Team Providers Care Winder Operator Name Role Phone Caroline Jc MD Primary Care Provid er Reason for Visit * Reason Comments Return Visit Encounter Details Date Type Department Care Team (Late st Contact Info) Description 02/22/2024 9:45 AM EDT Office Visit Gynecology/Obstetric [facility] 132 [facility] [place] [address] Liya Teran, [facility] 400 [facility] [place] [phone] Supervision of normal first , antepartum*; Antepartum [...] mRNA, LNP-s, No Pre serve, 2-Dose Series ([employer]) 10/15/2021,03/16/2021,02/23/2021 Covid-19, Mrna, Lnp-s, Pf, B ivalent, 30 Mcg, IM, 12 yrs and above ([employer]) 09/09/2022 DTaP Dipth/Tet/Acell Pertussis (Infanrix), Peds 04/13/1998,06/08/1995,1994,05/10,1994 [...] money to get more. Never true 07/13/2023 [place] Depression Scale Answer Date Recorded [place] Depression Scale Total 2 01/25/2024 The [...] Small amount of physiologic white discharge noted. Ice Scraper Documentation Provider requested rehab office coordinator. Name of rehab office coordinator: Miriam Keys LPN ASSESSMENT/PLAN: (O99.019) Antepartum anemia [...] 11:30 AM EDT Hem/Onc Treatment Hematology/Oncology Treatment, [address], [place] [phone] Destiny, Chair 4 Hem Onc [facility] [address] [place] [address] [place], [place] [address] 02/29/2024 2:30 PM EDT Hem/Onc Treatment Hematology/Oncology Treatment, [address], [place] [phone] Destiny, Chair 4 Hem Onc [facility] [address] [place] [address] [place], [place] [address] 03/07/2024 2:30 PM EDT Hem/Onc Treatment Hematology/Oncology Treatment, [address], [place] [address] Destiny, Chair 1 Hem Onc [facility] [address] [place] [address] [place], [place] [address] 03/26/2024 1:15 PM EDT Imaging Radiology [facility] [address] [facility] 132 [facility] [place] [address] 03/26/2024 2:45 PM EDT Office Visit Gynecology/Obstetrics [facility] 132 [facility] [place] [address] Liya Teran, [place]ST 400 [facility] [place] [address] 04/04/2024 9:20 AM EDT Laboratory Laboratory, [place] [address] [place] [phone] [place], Laboratory [address] [place] [address] 05/10/2024 9:00 AM EDT Office Visit Gastroenterology, [facility] 132 [facility] [place] [address] Angelita Mcleod CRNP 132 [facility] [address] 05/21/2024 3:00 PM EDT Office Visit Hematology/Oncology [facility] 200 [facility], [place] [phone] Pamela Holliday CRNP 400 [facility] [place] [address] Pending Results Name Type Priority Associated Diagnoses Date /Time MATERNAL SERUM AFP Lab Routine Supervision of normal first , antepartum 02/22/2024 10:28 AM EDT CHLAMYDIA TRACHOMATIS AND NEISSERIA GONORRHOEAE, AMPLIFIED PROBE Lab Routine Vaginal odor 02/22/2024 11:01 AM EDT VAGINOSIS PANEL, PCR Lab Routine Vaginal odor 02/22/2024 11:01 AM EDT Scheduled Orders Name Type Priority [...] organs documented in this encounter Care Teams Winder Operator Relationship Specialty Start Date End Date Caroline Jc MD [address] [place] [address] PCP - General Family Medicine 03/02/22 documented as of this encounter
--- OUTSIDE RECORDS SUMMARY | 2024-08-08 08:42 | External Medical Summary | Summary of Care ---
Author Name Unknown Organization [facility] Address [address] [place] [address] Phone [phone] Care Team Providers Care Railcar Switchman Name Role Phone Caroline Jc MD Primary Care Provid er Reason for Visit * Reason Comments IV Therapy Venofer Encounter Details Date Type Department Care Team (Latest Contact Info) Description 02/29/2024 10:00 AM EDT Hem/Onc Treatment Hematology/Oncology Treatment, [place] [address] [place] [phone] Destiny, Chair 11 Hem Onc [place] 200 [place], [place] [phone] Antepartum anemia complicating * Allergies Active Allergy Reactions Criticality Noted Date Comments Amoxicillin Hives High 07/28/2017 documented as of this encounter (statuses as of 03/21/2024) Medications Medication Sig Dispensed Refills Start Date [...] as of this encounter (statuses as of 03/21/2024) Active Problems Problem Noted Date Diagnosed Date [...] as of this encounter (statuses as of 03/21/2024) Immunizations Name Administration Dates Next Due COVID-19 mRNA, LNP-s, No Pre serve, 2-Dose Series ([employer]) 10/15/2021,03/16/2021,02/23/2021 Covid-19, Mrna, Lnp-s, Pf, B ivalent, 30 Mcg, IM, 12 yrs and above ([employer]) 09/09/2022 DTaP Dipth/Tet/Acell Pertussis ([employer]), Peds 04/13/1998,06/08/1995,1994,05/10,1994 [...] money to get more. Never true 07/13/2023 [place] Depression Scale Answer Date Recorded [place] Depression Scale Total 2 01/25/2024 The thought [...] Description 03/26/2024 1:15 PM EDT Imaging Radiology [facility] 2nd [facility] 132 [facility] [place] [address] 03/26/2024 2:45 PM EDT Office Visit Gynecology/Obstetrics [facility] 132 [facility] [place] [address] Liya Teran CNM 400 [facility] [place] [address] 04/04/2024 9:20 AM EDT Laboratory Laboratory, [place] [address] [facility] [phone] [place], Laboratory [address] [place] [address] 05/21/2024 3:00 PM EDT Office Visit Hematology/Oncology [facility] [address] [place] [phone] Pamela Holliday CRNP 400 [facility] [place] [address] 07/10/2024 9:00 AM EDT Office Visit Gastroenterology, [facility] [address] [place] [address] Susy Holliday CRNP [address] [place] [place] [address] Health Maintenance Due Date Last Done Comments [...] 10:24 AM EDT 300 mg 83.33 mL/hr NSS infusion 500 mL, Intravenous, at 50 mL/hr, CONTINUOUS, Starting on Jeni 02/29/24 at 1100, Until Jeni 02/29/24 at 1830 Start Infusion 02/29/2024 10:20 AM EDT 500 mL 50 mL/hr documented in this encounter Care Teams Railcar Switchman Relationship Specialty Start Date End Date Caroline Jc MD [address] [facility] [place] [address] PCP - General Family Medicine 03/02/22 documented as of this encounter
--- OUTSIDE RECORDS SUMMARY | 2024-08-08 08:42 | External Medical Summary | Summary of Care ---
Author Name Unknown Organization [facility] Address [address] [place] [address] Phone [phone] Care Team Providers Care Remnant Sorter Name Role Phone Caroline Jc MD Primary Care Provid er Reason for Visit * Reason Comments IV Therapy Venofer Encounter Details Date Type Department Care Team (Latest Contact Info) Description 03/07/2024 12:30 PM EDT Hem/Onc Treatment Hematology/Oncology Treatment, [address] [phone] Destiny, Chair [address] [facility] [address] [place], [place] [id number] Antepartum anemia complicating * Allergies Active Allergy Reactions Criticality Noted Date Comments Amoxicillin Hives High 07/28/2017 documented as of this encounter (statuses as of 03/07/2024) Medications Medication Sig Dispensed Refills Start Date [...] as of this encounter (statuses as of 03/07/2024) Active Problems Problem Noted Date Diagnosed Date [...] as of this encounter (statuses as of 03/07/2024) Immunizations Name Administration Dates Next Due COVID-19 mRNA, LNP-s, No Pre serve, 2-Dose Series ([employer]) 10/15/2021,03/16/2021,02/23/2021 Covid-19, Mrna, Lnp-s, Pf, B ivalent, 30 Mcg, IM, 12 yrs and above ([employer]irnarsoft) 09/09/2022 DTaP Dipth/Tet/Acell Pertussis (Infanrix), Peds 04/13/1998,06/08/1995,1994,05/10,1994 [...] money to get more. Never true 07/13/2023 [place] Depression Scale Answer Date Recorded [place] Depression Scale Total 2 01/25/2024 The thought [...] Description 03/26/2024 1:15 PM EDT Imaging Radiology [facility] 2nd [facility] 132 [facility] [address] 03/26/2024 2:45 PM EDT Office Visit Gynecology/Obstetrics [facility] 132 [facility] [place] [address] Liya Teran, [address] [place] [address] 04/04/2024 9:20 AM EDT Laboratory Laboratory, [place] [address] [facility] [phone] [place], Laboratory [address] [facility] [address] 05/21/2024 3:00 PM EDT Office Visit Hematology/Oncology [place] 200 [facility] [address] Pamela Holliday CRNP [address] [place] [address] Health Maintenance Due Date [...] PRN Other, Hypersensitivity Reaction, Starting on Jeni 03/07/24 at 1242, Until Mon03/08/24 at 1241, For 24 hours EPINEPHrine 1 MG/ML inj 0.3 mg 0.3 mg, Intramuscular, ONCE PRN Other, Hypersensitivity Reaction or Anaphylaxis, Starting on Jeni 03/07/24 at 1242, Until Mon03/08/24 at 1241, For 24 hours hEParin 100 UNIT/ML Lock Flush inj 500 Units 500 Units (5 mL), IV Lock, PRN Other, IV Flush, Starting on Mon03/07/24 at 1242, Until Mon03/08/24 at 1241, For 24 hours, Do not flush if lock, PICC, or central line not in place; IV infusing or unable to flush. Hydrocortisone Sod Suc (PF) (Solu-Cortef) inj 100 mg 100 mg, IV Push, ONCE PRN Other, Hypersensitivity Reaction, Starting on Mon03/07/24 at 1242, Until Mon03/08/24 at 1241, For 24 hours NSS infusion 500 mL, Intravenous, at 50 mL/hr, CONTINUOUS, Starting on Mon03/07/24 at 1345, Until Mon03/07/24 at 2344 Start Infusion 03/07/2024 12:46 PM EDT 500 mL 50 mL/hr oxygen GAS Inhalation, OXYGEN, First dose on Mon03/07/24 at 1600, Until Discontinued, Device/Managed by: Low [...] Push, PRN Other, IV Flush, Starting on Mon03/07/24 at 1242, Until Mon03/08/24 at 1241, For 24 hours, Do not flush if lock, PICC, or central line not in place; IV infusing or unable to flush. Inactive Administered Medications - up to 3 most recent administrations Medication Order MAR Action Action Date Dose Rate Site diphenhydrAMINE (Benadryl) cap 25 mg 25 mg, Oral, ONCE, On Mon03/07/24 at 1315, For 1 dose Given 03/07/2024 12:45 PM EDT 25 mg Iron Sucrose (Venofer) 300 mg in NSS 250 mL ivpb 300 mg, IV Piggyback, ONCE, 1 dose, On Jeni 03/07/24 at 1315, Administer over 180 Minutes, Protect from light Start Infusion 03/07/2024 12:46 PM EDT 300 mg 96.67 mL/hr documented in this encounter Care Teams Remnant Sorter Relationship Specialty Start Date End Date Caroline Jc MD [address] [facility] [place] [address] PCP - General Family Medicine 03/02/22 documented as of this encounter
--- OUTSIDE RECORDS SUMMARY | 2024-08-08 08:42 | External Medical Summary | Summary of Care ---
Author Name Unknown Organization [facility] Address [address] [place] [address] Phone [phone] Care Team Providers Care Building Certifier Name Role Phone Caroline Jc MD Primary Care Provid er Reason for Visit * Reason Comments Infusion Venofer 2/4 Encounter Details Date Type Department Care Team (Latest Contact Info) Description 02/22/2024 11:30 AM EDT Hem/Onc Treatment Hematology/Oncology Treatment, [place] [address] [place] [phone] Destiny, Chair 4 Hem Onc [place] [address] [place] [address] Antepartum anemia complicating * Allergies Active Allergy [...] mRNA, LNP-s, No Pre serve, 2-Dose Series ([employer]) 10/15/2021,03/16/2021,02/23/2021 Covid-19, Mrna, Lnp-s, Pf, B ivalent, 30 Mcg, IM, 12 yrs and above ([employer]) 09/09/2022 DTaP Dipth/Tet/Acell Pertussis (Infanrix), Peds 04/13/1998,06/08/1995,1994,05/10,1994 [...] money to get more. Never true 07/13/2023 [place] Depression Scale Answer Date Recorded [place] Depression Scale Total 2 01/25/2024 The [...] Description 04/04/2024 9:20 AM EDT Laboratory Laboratory, [place] [address] [place] [facility] [place] [address] [place], [facility] [address] [place] [address] 04/22/2024 3:00 PM EDT Office Visit Gynecology/Obstetrics [facility] [address] [place] [address] Bernardo Kate MD [address] [place] [phone] 05/21/2024 3:00 PM EDT Office Visit Hematology/Oncology [place] 200 [facility] [phone] Pamela Holliday CRNP [address] [place] [address] 07/10/2024 9:00 AM EDT Office Visit Gastroenterology, [facility] [address] [place] [address] Susy Holliday CRNP [address] [place] [address] Health Maintenance Due Date Last Done Comments [...] mL/hr documented in this encounter Care Teams Building Certifier Relationship Specialty Start Date End Date Caroline Jc MD [address] [place] [address] PCP - General Family Medicine 03/02/22 documented as of this encounter
--- OUTSIDE RECORDS SUMMARY | 2024-08-08 08:42 | External Medical Summary | Summary of Care ---
Author Name Unknown Organization [facility] Address [address] [place] [address] Phone [phone] Care Team Providers Care Hand Funnel Coater Name Role Phone Caroline Jc MD Primary Care Provid er Reason for Visit * Reason Comments Infusion Venofer 2/4 Encounter Details Date Type Department Care Team (Latest Contact Info) Description 02/22/2024 11:30 AM EDT Hem/Onc Treatment Hematology/Oncology Treatment, [place] [address] [place] [phone] Destiny, Chair 4 Hem Onc [place] 200 [place] [address] Antepartum anemia complicating * Allergies Active Allergy [...] mRNA, LNP-s, No Pre serve, 2-Dose Series ([employer]) 10/15/2021,03/16/2021,02/23/2021 Covid-19, Mrna, Lnp-s, Pf, B ivalent, 30 Mcg, IM, 12 yrs and above ([employer]) 09/09/2022 DTaP Dipth/Tet/Acell Pertussis (Infanrix), Peds 04/13/1998,06/08/1995,1994,05/10,1994 [...] Care Team (Late st Contact Info) Description 02/29/2024 10:00 AM EDT Hem/Onc Treatment Hematology/Oncology Treatment, [place] 200 [facility] [phone] Destiny, Chair 11 Hem Onc [address] [place] [address] 03/07/2024 12:30 PM EDT Hem/Onc Treatment Hematology/Oncology Treatment, [place] 200 [facility] [address] Destiny, Chair 2 Hem Onc [facility] [address] [place] [address] [place] [address] 03/26/2024 1:15 PM EDT Imaging [facility] 132 [facility] [place] [address] 03/26/2024 2:45 PM EDT Office Visit Gynecology/Obstetrics [facility] 132 [facility] [place] [address] Liya Teran, [address] [place] [address] 04/04/2024 9:20 AM EDT Laboratory Laboratory, [place] [address] [place] [phone] [place], Laboratory [address] [place] [address] 05/10/2024 9:00 AM EDT Office Visit Gastroenterology, [facility] 132 [facility] [place] [address] Angelita Mcleod CRNP 132 [facility] [place] [address] 05/21/2024 3:00 PM EDT Office Visit Hematology/Oncology [facility] 200 [place] [address] Pamela Holliday CRNP 400 [facility] [place] [address] Health Maintenance Due Date Last Done Comments [...] PRN Other, Hypersensitivity Reaction, Starting on Jeni 02/22/24 at 1130, Until Mon02/23/24 at 1129, For 24 hours EPINEPHrine 1 MG/ML inj 0.3 mg 0.3 mg, Intramuscular, ONCE PRN Other, Hypersensitivity Reaction or Anaphylaxis, Starting on Jeni 02/22/24 at 1130, Until Mon02/23/24 at 1129, For 24 hours hEParin 100 UNIT/ML Lock Flush inj 500 Units 500 Units (5 mL), IV Lock, PRN Other, IV Flush, Starting on Jeni 02/22/24 at 1130, Until Mon02/23/24 at 1129, For 24 hours, Do not flush if lock, PICC, or central line not in place; IV infusing or unable to flush. Hydrocortisone Sod Suc (PF) (Solu-Cortef) inj 100 mg 100 mg, IV Push, ONCE PRN Other, Hypersensitivity Reaction, Starting on Jeni 02/22/24 at 1130, Until Mon02/23/24 at 1129, For 24 hours NSS infusion 500 mL, Intravenous, at 50 mL/hr, CONTINUOUS, Starting on Jeni 02/22/24 at 1245, Until Mon02/22/24 at 2244 Start Infusion 02/22/2024 11:40 AM EDT 500 mL 50 mL/hr oxygen GAS Inhalation, OXYGEN, First dose on Jeni 02/22/24 at 1600, Until Discontinued, Device/Managed by: Low [...] Push, PRN Other, IV Flush, Starting on Jeni 02/22/24 at 1130, Until Mon02/23/24 at 1129, For 24 hours, Do not flush if [...] 11:40 AM EDT 300 mg 83.33 mL/hr documented in this encounter Care Teams Hand Funnel Coater Relationship Specialty Start Date End Date Caroline Jc MD [address] [place] [address] PCP - General Family Medicine 03/02/22 documented as of this encounter
--- OUTSIDE RECORDS SUMMARY | 2024-08-08 08:42 | External Medical Summary | Summary of Care ---
Author Name Unknown Organization [facility] Address [address] [place] [address] Phone [phone] Care Team Providers Care Tentmaker Name Role Phone Caroline Jc MD Primary Care Provid er Reason for Visit * Reason Comments Return Visit Encounter Details Date Type Department Care Team (Late st Contact Info) Description 03/26/2024 2:45 PM EDT Office Visit Gynecology/Obstetric [facility] 132 [facility] [place] [address] Liya Teran, [facility] 400 [facility] [place] [phone] Supervision of normal first , antepartum*; Antepartum [...] mRNA, LNP-s, No Pre serve, 2-Dose Series ([employer]) 10/15/2021,03/16/2021,02/23/2021 Covid-19, Mrna, Lnp-s, Pf, B ivalent, 30 Mcg, IM, 12 yrs and above ([employer]) 09/09/2022 DTaP Dipth/Tet/Acell Pertussis (Infanrix), Peds 04/13/1998,06/08/1995,1994,05/10,1994 [...] money to get more. Never true 03/25/2024 [place] Depression Scale Answer Date Recorded [place] Depression Scale Total 2 01/25/2024 The thought [...] Sign Reading Time Taken Comments Blood Pressure 108/64 03/26/2024 2:41 PM EDT Pulse - - Temperature - - Respiratory Rate - - Oxygen Saturation - - Inhaled Oxygen Concentration - - Weight 48.2 kg (106 lb 3.2 oz) 03/26/2024 2:41 P M EDT Height - - Body Mass Index 19.42 02/09/2024 9:57 AM EDT documented in this encounter Progress Notes * Liya Teran CNM - 03/26/2024 2:52 PM EDT Rubia Umana is a 29 year old female here for her routine OB appointment at 20w1d Her Estimated Date of Delivery: 08/12/24 REVIEW OF SYSTEMS: She affirms movement. Denies vaginal bleeding, LOF, contractions, vision changes, and RUQ pain. Complains of headaches 2-3 times weekly, which she thinks may be related to dehydration. +Occasional RUQ pain. Occasionally feels a "hard lump" in right lower quadrant, which resolves with massage. Sometimes feels nausea but denies vomiting. PHYSICAL EXAM: Filed Vitals: 03/26/24 1441 BP: 108/64 Weight: 48.2 kg (106 lb 3.2 oz) +FHT 140-150bpm Fundal height: 21cm ASSESSMENT/PLAN: (O99.019) Antepartum anemia complicating Plan: -Followed by hematology -Repeat labs 04/04/24 per hematology -Has had 4 successful iron infusions (Z34.00) Supervision of normal first , antepartum (primary encounter diagnosis) Plan: -answered questions about GDM screening; discussed 1 hour GTT, Fresh Test, and monitoring BG 4x daily for 2 weeks. Patient contemplating the options. -reviewed common discomforts of and relief measures - had anatomy US today; results pending - RTO in 4 weeks Liya Teran CNM documented in this encounter Nursing Notes * Miriam Keys LPN - 03/26/2024 2:41 PM EDT Pt is currently 20w1d with an Estimated Date of Delivery: 08/12/24 - Anatomy today. documented in this encounter Plan of Treatment Upcoming Encounters Date Type Department Care Team (Late st Contact Info) Description 04/04/2024 9:20 AM EDT Laboratory Laboratory, [place] [address] [facility], [place] [phone] [place], [facility] [address] [facility] [place] [address] 04/22/2024 3:00 PM EDT Office Visit Gynecology/Obstetrics [facility] [address] [facility] [place] [address] Bernardo Kate MD [address] [place] [address] 05/21/2024 3:00 PM EDT Office Visit Hematology/Oncology [facility] 200 [facility] [phone] Pamela Holliday CRNP [address] [place] [address] 07/10/2024 9:00 AM EDT Office Visit Gastroenterology, [facility] 132 [facility] [address] Susy Holliday CRNP 132 [facility] [address] Health Maintenance Due Date Last Done Comments [...] antepartum documented in this encounter Care Teams Tentmaker Relationship Specialty Start Date End Date Caroline Jc MD [address] [place] [address] PCP - General Family Medicine 03/02/22 documented as of this encounter
--- OUTSIDE RECORDS SUMMARY | 2024-08-08 08:43 | External Medical Summary | Summary of Care ---
Author Name Unknown Organization [facility] Address [address] [place] [address] Phone [phone] Care Team Providers Care Edge Sander Name Role Phone Caroline Jc MD Primary Care Provid er Reason for Visit * Reason Comments Infusion Venofer 11/16 Encounter Details Date Type Department Care Team (Latest Contact Info) Description 02/15/2024 2:30 PM EDT Hem/Onc Treatment Hematology/Oncology Treatment, [place] [address] [place] [phone] Destiny, Chair 1 Hem Onc [place] 200 [place] [address] Antepartum anemia complicating * Allergies Active Allergy Reactions Criticality Noted Date Comments Amoxicillin Hives High 07/28/2017 documented as of this encounter (statuses as of 02/15/2024) Medications Medication Sig Dispensed Refills Start Date [...] Therapy Pack Take by mouth. 0 Active Iron-Vitamin C 65-125 MG Oral Tablet (Vitron C)Indications:Antepar berenice anemia complicating Take 1 Tablet by mouth in the morning and 1 Tablet in the evening. 60 Tablet 6 01/26/2024 Active Unisom Simple Slumbers 2.5 MG Oral Tablet Chewable Take by mouth. 0 Activ e documented as of this encounter (statuses as of 02/15/2024) Active Problems Problem Noted Date Diagnosed Date [...] as of this encounter (statuses as of 02/15/2024) Immunizations Name Administration Dates Next Due COVID-19 mRNA, LNP-s, No Pre serve, 2-Dose Series ([employer]) 10/15/2021,03/16/2021,02/23/2021 Covid-19, Mrna, Lnp-s, Pf, B ivalent, 30 Mcg, IM, 12 yrs and above ([employer]) 09/09/2022 DTaP Dipth/Tet/Acell Pertussis (Infanrix), Peds 04/13/1998,06/08/1995,1994,05/10,1994 [...] money to get more. Never true 07/13/2023 [place] Depression Scale Answer Date Recorded [place] Depression Scale Total 2 01/25/2024 The thought [...] PM EDT 1445: Pt arrived for Venofer 11/16 infusion. PIV in RFA. Pt tolerated well. VSS. No complaints at this time. documented in this encounter Plan of Treatment Upcoming Encounters Date Type Department Care Team (Late st Contact Info) Description 02/22/2024 11:30 AM EDT Hem/Onc Treatment Hematology/Oncology [address], [address] [phone] Destiny, Chair 11 Hem Onc [address] [place] [address] 02/22/2024 2:45 PM EDT Office Visit Gynecology/Obstetrics [facility] 132 [facility] [place] [address] Liya Teran CNM 400 [facility] [place] [address] 02/29/2024 2:30 PM EDT Hem/Onc Treatment Hematology/Oncology Treatment, [place] 200 [facility] [phone] Destiny, Chair 4 Hem Onc [facility] [address] [place] [address] [place] [address] 03/07/2024 2:30 PM EDT Hem/Onc Treatment Hematology/Oncology Treatment, [place] [address] [place], [place] [phone] Destiny, Chair 1 Hem Onc [facility] 200 [facility] [place] [address] 04/04/2024 9:20 AM EDT Laboratory Laboratory, [place] [address] [place] [phone] [place], Laboratory [address] [place] [address] 05/10/2024 9:00 AM EDT Office Visit Gastroenterology, [facility] [place] [address] Angelita Mcleod CRNP 132 [facility] [address] 05/21/2024 3:00 PM EDT Office Visit Hematology/Oncology [facility] [place] 200 [facility] [place], [place] [phone] Pamela Holliday CRNP 400 [facility] [place] [phone] Health Maintenance Due Date Last Done Comments [...] PRN Other, Hypersensitivity Reaction, Starting on Jeni 02/15/24 at 1449, Until Mon02/16/24 at 1448, For 24 hours EPINEPHrine 1 MG/ML inj 0.3 mg 0.3 mg, Intramuscular, ONCE PRN Other, Hypersensitivity Reaction or Anaphylaxis, Starting on Jeni 02/15/24 at 1449, Until Mon02/16/24 at 1448, For 24 hours hEParin 100 UNIT/ML Lock Flush inj 500 Units 500 Units (5 mL), IV Lock, PRN Other, IV Flush, Starting on Jeni 02/15/24 at 1449, Until Mon02/16/24 at 1448, For 24 hours, Do not flush if lock, PICC, or central line not in place; IV infusing or unable to flush. Hydrocortisone Sod Suc (PF) (Solu-Cortef) inj 100 mg 100 mg, IV Push, ONCE PRN Other, Hypersensitivity Reaction, Starting on Jeni 02/15/24 at 1449, Until Mon02/16/24 at 1448, For 24 hours NSS infusion 500 mL, Intravenous, at 50 mL/hr, CONTINUOUS, Starting on Jeni 02/15/24 at 1600, Until Mon02/16/24 at 0159 Start Infusion 02/15/2024 2:49 PM EDT 500 mL 50 mL/hr oxygen GAS Inhalation, OXYGEN, First dose on Jeni 02/15/24 at 1600, Until Discontinued, Device/Managed by: Low [...] PRN Other, IV Flush, Starting on Jeni 02/15/24 at 1449, Until Mon02/16/24 at 1448, For 24 hours, Do not flush if [...] 2:49 PM EDT 300 mg 166.67 mL/hr documented in this encounter Care Teams Edge Sander Relationship Specialty Start Date End Date Caroline Jc MD [address] [place] [address] PCP - General Family Medicine 03/02/22 documented as of this encounter
--- OUTSIDE RECORDS SUMMARY | 2024-08-08 08:43 | External Medical Summary | Summary of Care ---
Author Name Unknown Organization [facility] Address [address] [facility] [place] [address] Phone [phone] Care Team Providers Care Environmental Maintenance Worker Name Role Phone Caroline Jc MD Primary Care Provid er Reason for Visit * Reason Onset Date Comments Advice 02/16/2024 Encounter Details Date Type Department Care Team (Late st Contact Info) Description 02/16/2024 Telephone Hematology/Oncology [facility] [place] [address] [facility] [place] [address] Pamela Holliday CRNP 400 [place] [address] Advice Allergies Active Allergy Reactions Criticality Noted Date Comments Amoxicillin Hives High 07/28/2017 documented as of this encounter (statuses as of 02/16/2024) Medications Medication Sig Dispensed Refills Start Date [...] as of this encounter (statuses as of 02/16/2024) Active Problems Problem Noted Date Diagnosed Date [...] as of this encounter (statuses as of 02/16/2024) Immunizations Name Administration Dates Next Due COVID-19 mRNA, LNP-s, No Pre serve, 2-Dose Series ([employer]) 10/15/2021,03/16/2021,02/23/2021 Covid-19, Mrna, Lnp-s, Pf, B ivalent, 30 Mcg, IM, 12 yrs and above ([employer]) 09/09/2022 DTaP Dipth/Tet/Acell Pertussis (Infanrix), Peds 04/13/1998,06/08/1995,1994,05/10,1994 [...] money to get more. Never true 07/13/2023 [place] Depression Scale Answer Date Recorded [place] Depression Scale Total 2 01/25/2024 The thought [...] encounter Miscellaneous Notes * Telephone Encounter - Pamela Holliday CRNP - 02/16/2024 9:11 AM EDT Please add 25 mg PO Benadryl as pretreat for all future infusions. * Telephone Encounter - Davy Avalos RN - 02/16/2024 8:48 AM EDT Pt called, received her first Venofer infusion yesterday. She states she did fine during the infusion until last night, started to notice rash/hives on her legs. She took 25mg of Benadryl but states this didn't help, so she took another 25mg. States when she woke this morning they were gone. She denies any further symptoms. Advised that if anything were to happen after hours she may call the [phone] and ask to speak to the [employer]arn[employer]te[employer] family and consumer science professor, if her throat/face were to starting getting swollen she should go to the ER. Pt verbalized understanding. Pamela- would you like to add 50mg Benadryl pre-treat to upcoming Venofer infusions? documented in this encounter Plan of Treatment Upcoming Encounters Date Type Department Care Team (Late st Contact Info) Description 02/22/2024 11:30 AM EDT Hem/Onc Treatment Hematology/Oncology Treatment, [address] [phone] Destiny, Chair 11 Hem Onc [facility] [address] [place] [address] [place] [address] 02/22/2024 2:45 PM EDT Office Visit Gynecology/Obstetrics [facility] 132 [facility] [place] [address] Liya Teran CNM 400 [facility] [place] [address] 02/29/2024 2:30 PM EDT Hem/Onc Treatment Hematology/Oncology Treatment, [address] [phone] Destiny, Chair 4 Hem Onc [facility] [address] [place] [address] [place] [address] 03/07/2024 2:30 PM EDT Hem/Onc Treatment Hematology/Oncology Treatment, [place] 200 [facility], [place] [address] Destiny, Chair 1 Hem Onc [facility] 200 [facility] [place], [place] [address] 04/04/2024 9:20 AM EDT Laboratory Laboratory, [place] [address] [facility] [place] [phone] [place], Laboratory [address] [place] [address] 05/10/2024 9:00 AM EDT Office Visit Gastroenterology, [facility] 132 [facility] [place] [address] Angelita Mcleod CRNP 132 [facility] [address] 05/21/2024 3:00 PM EDT Office Visit Hematology/Oncology [facility] [place] 200 [facility] [place], [place] [phone] Pamela Holliday CRNP [address] [place] [address] Health Maintenance Due Date Last Done Comments [...] filedocumented as of this encounter Care Teams Environmental Maintenance Worker Relationship Specialty Start Date End Date Caroline Jc MD [address] [place] [address] PCP - General Family Medicine 03/02/22 documented as of this encounter
--- OUTSIDE RECORDS SUMMARY | 2024-08-08 08:43 | External Medical Summary | Summary of Care ---
Author Name Unknown Organization [facility] Address [address] [facility] [place] [address] Phone [phone] Care Team Providers Care Shutdown Planner Name Role Phone Caroline Jc MD Primary Care Provid er Reason for Visit * Reason Onset Date Comments Advice 02/16/2024 Encounter Details Date Type Department Care Team (Late st Contact Info) Description 02/16/2024 Telephone Hematology/Oncology [facility] [place] [address] [place] [address] Pamela Holliday CRNP [address] [place] [address] Advice Allergies Active Allergy Reactions [...] mRNA, LNP-s, No Pre serve, 2-Dose Series ([employer]) 10/15/2021,03/16/2021,02/23/2021 Covid-19, Mrna, Lnp-s, Pf, B ivalent, 30 Mcg, IM, 12 yrs and above ([employer]) 09/09/2022 DTaP Dipth/Tet/Acell Pertussis (Infanrix), Peds 04/13/1998,06/08/1995,1994,05/10,1994 [...] money to get more. Never true 07/13/2023 [place] Depression Scale Answer Date Recorded [place] Depression Scale Total 2 01/25/2024 The thought [...] encounter Miscellaneous Notes * Telephone Encounter - Davy Avalos, RN - 02/16/2024 9:33 AM EDT Added to plan, routed to provider. * Telephone Encounter - Pamela Holliday CRNP [...] happen after hours she may call the 1-800 # and ask to speak to the Cost Accounting Clerk director of operations, if her throat/face were to starting getting swollen she should go to the ER. Pt verbalized understanding. Pamela- would you like to add 50mg Benadryl pre-treat to upcoming Venofer infusions? documented in this encounter Plan of Treatment Upcoming Encounters Date Type Department Care Team (Late st Contact Info) Description 02/22/2024 11:30 AM EDT Hem/Onc Treatment Hematology/Oncology Treatment, [place] [facility] [address] Destiny, Chair 11 Hem Onc [facility] 200 [facility] [address] 02/22/2024 2:45 PM EDT Office Visit Gynecology/Obstetrics [facility] 132 [facility] [place] [address] Liya Teran, [address] [place] [address] 02/29/2024 2:30 PM EDT Hem/Onc Treatment Hematology/Oncology Treatment, [place] 200 [facility], [place] [phone] Destiny, Chair 4 Hem Onc [address] [place], [place] [address] 03/07/2024 2:30 PM EDT Hem/Onc Treatment Hematology/Oncology Treatment, [place] 200 [facility], [place] [phone] Destiny, Chair 1 Hem Onc [address] [place], [place] [address] 04/04/2024 9:20 AM EDT Laboratory Laboratory, [address] [phone] [place], Laboratory [address] [place] [address] 05/10/2024 9:00 AM EDT Office Visit Gastroenterology, [facility] 132 [facility] [address] Angelita Mcleod CRNP 132 [facility] [place] [address] 05/21/2024 3:00 PM EDT Office Visit Hematology/Oncology [facility] [address] [place], [place] [phone] Pamela Holliday CRNP 400 [facility] [place] [address] Health Maintenance Due Date Last Done Comments [...] filedocumented as of this encounter Care Teams Shutdown Planner Relationship Specialty Start Date End Date Caroline Jc MD [address] [place] [address] PCP - General Family Medicine 03/02/22 documented as of this encounter
--- OUTSIDE RECORDS SUMMARY | 2024-08-08 08:43 | External Medical Summary | Summary of Care ---
Author Name Unknown Organization [facility] Address [address] [facility] [place] [address] Phone [phone] Care Team Providers Care Bulldozer Engineer Name Role Phone Caroline Jc MD Primary Care Provid er Encounter Details Date Type Department Care Team (Late st Contact Info) Description 02/20/2024 Orders Only Hematology/Oncology [facility] [place] 200 [facility] [address] Pamela Holliday CRNP 400 [facility] [place] [address] Allergies Active Allergy Reactions Criticality Noted Date Comments Amoxicillin Hives High 07/28/2017 documented as of this encounter (statuses as of 02/20/2024) Medications Medication Sig Dispensed Refills Start Date [...] as of this encounter (statuses as of 02/20/2024) Active Problems Problem Noted Date Diagnosed Date [...] as of this encounter (statuses as of 02/20/2024) Immunizations Name Administration Dates Next Due COVID-19 mRNA, LNP-s, No Pre serve, 2-Dose Series ([employer]) 10/15/2021,03/16/2021,02/23/2021 Covid-19, Mrna, Lnp-s, Pf, B ivalent, 30 Mcg, IM, 12 yrs and above ([employer]) 09/09/2022 DTaP Dipth/Tet/Acell Pertussis (Infanrix), Peds 04/13/1998,06/08/1995,1994,05/10,1994 [...] money to get more. Never true 07/13/2023 [place] Depression Scale Answer Date Recorded [place] Depression Scale Total 2 01/25/2024 The thought [...] Description 02/22/2024 9:45 AM EDT Office Visit Gynecology/Obstetrics [facility] 132 [facility] [place] [address] Liya Teran, CNM [address] [place] [address], [place] [address] 02/22/2024 11:30 AM EDT Hem/Onc Treatment Hematology/Oncology Treatment, [address] [place] [phone] Destiny, Chair 4 Hem Onc [address] 200 [facility] [place], [place] [address] 02/29/2024 2:30 PM EDT Hem/Onc Treatment Hematology/Oncology Treatment, [address] [place] [address] Destiny, Chair 4 Hem Onc [address] 200 [facility] [place], [place] [address] 03/07/2024 2:30 PM EDT Hem/Onc Treatment Hematology/Oncology Treatment, [address] [place] [phone] Destiny, Chair 1 Hem Onc [address] 200 [facility] [place], [place] [address] 04/04/2024 9:20 AM EDT Laboratory Laboratory, [address] [phone] [address] [address] 05/10/2024 9:00 AM EDT Office Visit Gastroenterology, [facility] 132 [address] [facility] [place] [address] Angelita Mcleod CRNP 132 [facility] [place] [address] 05/21/2024 3:00 PM EDT Office Visit Hematology/Oncology [facility] [place] 200 [facility] [place], [place] [phone] Pamela Holliday CRNP 400 [place] [address] Health Maintenance Due Date Last Done Comments COVID-19 Vaccine (2022-24 season) 2023 09/09/2022, 10/15/2021, 03/16/2021, Additional history [...] filedocumented as of this encounter Care Teams Bulldozer Engineer Relationship Specialty Start Date End Date Caroline Jc MD [address] [place] [address] PCP - General Family Medicine 03/02/22 documented as of this encounter
--- OUTSIDE RECORDS SUMMARY | 2024-08-08 08:43 | External Medical Summary | Summary of Care ---
Author Name Unknown Organization [facility] Address [address] [facility] [place] [address] Phone [phone] Care Team Providers Care Psychology Department Chair Name Role Phone Caroline Jc MD Primary Care Provid er Reason for Visit * Reason Onset Date Comments Advice 02/16/2024 Encounter Details Date Type Department Care Team (Late st Contact Info) Description 02/16/2024 Telephone Hematology/Oncology [facility] [place] [address] [place] [place] [address] Pamela Holliday CRNP 400 [place] [address] Advice Allergies Active Allergy Reactions [...] mRNA, LNP-s, No Pre serve, 2-Dose Series ([employer]) 10/15/2021,03/16/2021,02/23/2021 Covid-19, Mrna, Lnp-s, Pf, B ivalent, 30 Mcg, IM, 12 yrs and above ([employer]) 09/09/2022 DTaP Dipth/Tet/Acell Pertussis (Infanrix), Peds [...] money to get more. Never true 07/13/2023 [place] Depression Scale Answer Date Recorded [place] Depression Scale Total 2 01/25/2024 The thought [...] Notes * Telephone Encounter - Davy Avalos, MOOSE - 02/16/2024 8:48 AM EDT Pt called, [...] # and ask to speak to the Health Education Teacher contract sheltered workshop supervisor, if her throat/face were to starting getting swollen she should go to the ER. Pt verbalized understanding. Pamela- would you like to add 50mg Benadryl pre-treat to upcoming Venofer infusions? documented in this encounter Plan of Treatment Upcoming Encounters Date Type Department Care Team (Late st Contact Info) Description 02/22/2024 11:30 AM EDT Hem/Onc Treatment Hematology/Oncology [address], [address] [phone] Destiny, Chair 11 Hem Onc [address] [place] [address] 02/22/2024 2:45 PM EDT Office Visit Gynecology/Obstetrics [facility] 132 [facility] [place] [address] Liya Teran, [facility] 400 [facility] [place] [address] 02/29/2024 2:30 PM EDT Hem/Onc Treatment Hematology/Oncology Treatment, [address] [phone] Destiny, Chair 4 Hem Onc [facility] [address] [place] [address] [place] [address] 03/07/2024 2:30 PM EDT Hem/Onc Treatment Hematology/Oncology Treatment, [address] [phone] Destiny, Chair 1 Hem Onc [facility] [place] [address] 04/04/2024 9:20 AM EDT Laboratory Laboratory, [place] [address] [facility] [phone] [place], Laboratory [address] [facility] [place] [address] 05/10/2024 9:00 AM EDT Office Visit Gastroenterology, [facility] [address] [place] [address] Angelita Mcleod CRNP [address] [place] [address] 05/21/2024 3:00 PM EDT Office Visit Hematology/Oncology [facility] 200 [facility] [address] Pamela Holliday CRNP [address] [place] [address] Health Maintenance Due Date Last Done Comments [...] filedocumented as of this encounter Care Teams Psychology Department Chair Relationship Specialty Start Date End Date Caroline Jc MD [address] [place] [address] PCP - General Family Medicine 03/02/22 documented as of this encounter
--- OUTSIDE RECORDS SUMMARY | 2024-08-08 08:43 | External Medical Summary | Summary of Care ---
Author Name Unknown Organization [facility] Address [address] [place] [address] Phone [phone] Care Team Providers Care Exercise Rider Name Role Phone Caroline Jc MD Primary Care Provid er Reason for Visit * Reason Comments NEW PATIENT [facility] and having low iron and anemia * Evaluate & Treat - Unlimited Visits (Within 10 days (routine)) - Pending Review Specialty Diagnoses / Procedures Referred By Contac t Referred To Contact Hematology/Oncology / Hematology Oncology Diagnoses Antepartum anemia complicating Lulú Boyce CRNP [address] [place] [address] Referral ID Status Reason Start Date Expiration Date Visits Requested Visits Authorized [id number] Pending Review Specialty Services Required 01/31/[phone] Encounter Details Date Type Department Care Team (Late st Contact Info) Description 02/09/2024 10:00 AM EDT Office Visit Hematology/Oncology [facility] [place] 200 [facility] [place] [phone] Pamela Holliday CRNP 400 [place] [phone] Antepartum anemia complicating * Allergies Active Allergy [...] to hematology. Supervision of normal first , [facility] 01/25/2024 Chronic urticaria 07/11/2018 Overview: since November, Gastroparesis 09/14/2017 Estimated Date of Delivery Comme nts Yes 08/12/2024 Based on Ultraso und documented as of this encounter (statuses as of 02/16/2024) Immunizations Name Administration Dates Next Due COVID-19 mRNA, LNP-s, No Pre serve, 2-Dose Series ([employer]) 10/15/2021,03/16/2021,02/23/2021 Covid-19, Mrna, Lnp-s, Pf, B ivalent, 30 Mcg, IM, 12 yrs and above ([employer]) 09/09/2022 DTaP Dipth/Tet/Acell Pertussis (Infanrix), Peds 04/13/1998,06/08/1995,1994,05/10,1994 [...] money to get more. Never true 07/13/2023 [place] Depression Scale Answer Date Recorded [place] Depression Scale Total 2 01/25/2024 The thought [...] Sign Reading Time Taken Comments Blood Pressure 120/83 02/09/2024 9:57 AM EDT Pulse 89 02/09/2024 9:57 AM EDT Temperature 36.8 C (98.2 F) 02/09/2024 9:57 AM ED T Respiratory Rate 16 02/09/2024 9:57 AM EDT Oxygen Saturation 99% 02/09/2024 9:57 AM EDT Inhaled Oxygen Concentration - - Weight 46.4 kg (102 lb 4.8 oz) 02/09/2024 9:57 A M EDT Height 157.5 cm (5' 2") 02/09/2024 9:57 AM EDT Body Mass Index 18.71 02/09/2024 9:57 AM EDT documented in this encounter Progress Notes * Pamela Holliday CRNP - 02/09/2024 10:14 AM EDT Hematology/Oncology Outpatient Clinic note [facility] [place] 200 [facility] [place] [address] Name: Rubia Umana Date: 02/09/2024 REFERRED BY: TITA Lorenz CHIEF COMPLAINT: Rubia Umana is a 28 year old female here today for new consultation for anemia in . HISTORY OF PRESENT ILLNESS: 28 year old [...] Maternal aunt and uncle with colon cancer. Patient's past medical history, social history, and family history were reviewed and updated. Past Medical History: Diagnosis Date Anemia Eczema Gastritis anemia Gastroparesis Follows with GI, [facility] GERD (gastroesophageal reflux disease) Overactive bladder Palpitations Family History Problem Relation Age of Onset Heart failure Mother Valve issue? Diabetes Mother Allergies Mother hives and eye symptoms from pet dander Coronary Artery disease Father Stents Asthma Sister exercise induced Diabetes Grandmother (Maternal) Heart disease Grandmother (Paternal) Heart disease Grandfather (Paternal) Other (Cancer, ?type) Grandfather (Paternal) Cancer Other colon cancer - distant uncle Social History Socioeconomic History Marital status: Spouse name: Not on file Number of children: Not on file Years of education: Not on file Highest education level: Not on file Occupational History Not on file Tobacco Use Smoking status: Never Smokeless tobacco: Never Vaping Use Vaping Use: Never used Substance and Sexual Activity Alcohol use: Not Currently Comment: rarely Drug use: No Sexual activity: Yes Partners: Male Other Topics Concern Not on file Social History Narrative Not on file Social Determinants of Health Financial Resource Strain: Not on file Food Insecurity: No Food Insecurity (07/13/2023) Hunger Vital Sign Worried About Running Out of Food in the Last Year: Never true Ran Out of Food in the Last Year: Never true Transportation Needs: Not on file Physical Activity: Not on file Stress: Not on file Social Connections: Not on file Intimate Partner Violence: Not on file Housing Stability: Not on file Review of patient's allergies indicates: Allergen Reactions Amoxicillin Hives Current Outpatient Medications Medication Sig Dispense Refill Unisom Simple Slumbers 2.5 MG Oral Tablet Chewable Take by mouth. Probiotic Product (ALIGN) 4 MG Capsule Take 1 Capsule by mouth in the morning. Polyethylene Glycol 3350 17 GM/SCOOP Oral Powder Take 17 g by mouth in the morning. Lansoprazole 30 MG Oral Capsule Delayed Release (Prevacid) Take 1 Capsule by mouth in the morning. 90 Capsule 3 Complete Oral Capsule Therapy Pack Take by mouth. Iron-Vitamin C 65-125 MG Oral Tablet (Vitron C) Take 1 Tablet by mouth in the morning and 1 Tablet in the evening. 60 Tablet 6 No current facility-administered medications for this visit. REVIEW OF SYSTEMS: SEE HPI - otherwise negative OBJECTIVE: Filed Vitals: 02/09/24 0957 BP: 120/83 Pulse: 89 Resp: 16 Temp: 36.8 C (98.2 F) TempSrc: Tympanic SpO2: 99% Weight: 46.4 kg (102 lb 4.8 oz) Height: 1.575 m (5' 2") Wt Readings from Last 5 Encounters: 02/09/24 46.4 kg (102 lb 4.8 oz) 01/25/24 45.8 kg (101 lb) 01/02/24 46.7 kg (103 lb) 12/05/23 47 kg (103 lb 9.6 oz) 08/15/23 47.2 kg (104 lb 1.6 oz) PHYSICAL EXAM: Constitutional: no acute distress Neuro: alert, oriented to person, place, and time, gait normal HEENT: normal: normocephalic, atraumatic; neck with no masses or tenderness; no cervical/supraclavicular lymphadenopathy CV: normal rate and rhythm, no murmur Chest: normal respiratory effort, lungs clear to auscultation Extremities: no edema Skin: warm and dry LABS: Results for orders placed or performed in visit on 01/25/24 TYPE AND SCREEN Result Value Ref Range ABO O Rh Positive Red Blood Cell Antibody Screen Negative Specimen Expiration Date 01/28/2024 23:59 RUBELLA IGG ANTIBODY Result Value Ref Range Rubella IgG Antibody Positive (A) Negative HEPATITIS B SURFACE ANTIGEN Result Value Ref Range Hepatitis B Surface Antigen Negative Negative HIV ANTIGEN & ANTIBODY SCREEN W/ CONFIRMATION Result Value Ref Range HIV Antigen & Antibody Negative Negative QNATAL ADVANCED (QUEST) Result Value Ref Range Number of Fetuses? 1 Advanced Maternal Age? NO Abnormal Josephine? NO Abnormal Us? NO Personal/Fam History? NO Interpretation SEE BELOW Trisomy 21 (T21) Negative Trisomy 18 (T18) Negative Trisomy 13 (T13) Negative Y Chromosome Not detected Y CHR. Interpretation SEE BELOW Sex Chromosome No aneuploidy Sex Chromosome Interp SEE BELOW Microdeletion Opted Out Microdeletion Interp SEE BELOW Gestational Age (In Weeks) 11 Gestational Age (In Days) 3 Fraction 14.33% Laboratory Comments SEE BELOW Limitations SEE BELOW Specifications SEE BELOW Methodology SEE BELOW ANEMIA CBC Result Value Ref Range WBC 5.60 4.00 - 10.80 K/uL RBC 3.75 3.85 - 5.15 M/uL HGB 9.1 (L) 12.0 - 15.3 g/dL HCT 28.9 (L) 36.0 - 45.2 % MCV 77.1 81.5 - 97.5 fL MCH 24.3 27.0 - 34.0 pg MCHC 31.5 32.0 - 36.0 g/dL RDW 18.0 11.5 - 15.5 % PLT 296 140 - 400 K/uL MPV 10.4 6.6 - 11.1 fL nRBCs 0 <=0 /100 WBCs DIFFERENTIAL, AUTOMATED Result Value Ref Range WBC 5.60 4.00 - 10.80 K/uL Neutrophils % 65.5 40.0 - 75.0 % Lymphocytes % 23.4 18.0 - 42.0 % Monocytes % 9.1 1.0 - 11.0 % Eosinophils % 1.4 0.0 - 6.0 % Basophils % 0.4 0.0 - 2.0 % Immature Granulocytes % 0.2 0.0 - 2.0 % Absolute Neutrophils 3.67 1.80 - 7.70 K/uL Absolute Lymphocytes 1.31 1.00 - 4.80 K/ul Absolute Monocytes 0.51 0.00 - 1.10 K/uL Absolute Eosinophils 0.08 0.00 - 0.70 K/uL Absolute Basophils 0.02 0.00 - 0.20 K/uL Absolute Immature Granulocytes 0.01 0.00 - 0.20 K/uL HEPATITIS C ANTIBODY Result Value Ref Range Hepatitis C Antibody Negative Negative SYPHILIS ANTIBODY SCREEN Result Value Ref Range Syphilis Screen Interpretation Nonreactive Nonreactive RETICULOCYTE PANEL Result Value Ref Range Reticulocyte Percent 1.09 0.80 - 1.90 % Absolute Reticulocyte 41.4 31.3 - 100.1 K/uL Immature Reticuloctye Fraction 16.9 2.5 - 20.6 % Reticulocyte Hemoglobin 27.6 (L) 29.7 - 37.4 pg IRON SCREEN, INCLUDING TIBC Result Value Ref Range Iron 56 33 - 151 ug/dL Iron Binding Capacity 447 (H) 250 - 425 ug/dL Transferrin Saturation Percent 13 (L) 15 - 55 % FERRITIN Result Value Ref Range Ferritin 11 (L) 13 - 150 ng/mL CREATININE Result Value Ref Range Creatinine 0.5 0.5 - 1.0 mg/dL Estimated Glomerular Filtration Rate >90 >=60 mL/min DIFFERENTIAL, TECHNOLOGIST REVIEW Result Value Ref Range Elen Cells Moderate (A) None Seen Schistocytes Few (A) None Seen Reactive Lymphocytes Present (A) None Seen IMPRESSION: Anemia in : 28 year old year old female . GREG 08/02/24. Currently 13 weeks. History of gastroparesis and chronic constipation. Chronically anemic for at least the last five years but never addressed it. Lab results 01/25/24 reviewed: Hgb has declined to 9.1 with microcytic indices Ferritin 11 and TSAT 13% - confirming ANKIT Denies history of HMB. Was prescribed Vitron C twice daily. [...] Maternal aunt and uncle with colon cancer. PLAN: Patient is intolerant of oral iron. D/T this recommend treatment with IV iron therapy. Patient will enter second trimester of pregnancyon Monday. IV Venofer will be safe to use at that time. Order placed for IV Venofer 300 mg weekly x 4 -Reviewed the rare but serious risk of infusion reactions, including anaphylaxis, with IV iron. Also discussed the use of rescue medications as needed to mitigate these risks. Patient voiced understanding and ultimately chose to proceed with IV iron infusion Repeat cbc/diff, iron screen and ferritin one month after last infusion Will consider for monthly labs after April. Patient should continue PNV as well. RTC in three months with provider with cbc/diff, iron screen and ferritin. TITA Turpin documented in this encounter Nursing Notes * Kristi Dent MED ASSIST - 02/09/2024 9:57 AM EDT Patient identifed by name and birthdate Do you have any concerns about pain management for today's visit? No Living Will or Advance Directive for Health Care as noted on the problem list. [facility] is a way you can talk to your provider on line through e-mail. Would you like to sign up? I can activate it for you? ALREADY ACTIVE Filed Vitals: 02/09/24 0957 BP: 120/83 Pulse: 89 Resp: 16 Temp: 36.8 C (98.2 F) TempSrc: Tympanic SpO2: 99% Weight: 46.4 kg (102 lb 4.8 oz) Height: 1.575 m (5' 2") Patient was instructed to not get up [...] 11:30 AM EDT Hem/Onc Treatment Hematology/Oncology Treatment, [place] [address] [place] [phone] Destiny, Chair 11 Hem Onc [address] 200 [facility] [place] [address] 02/22/2024 2:45 PM EDT Office Visit Gynecology/Obstetrics [facility] 132 [place] [address] Liya Teran CNM 400 [place] [address] 02/29/2024 2:30 PM EDT Hem/Onc Treatment Hematology/Oncology Treatment, [address], [place] [phone] Destiny, Chair 4 Hem Onc [address] [address] 03/07/2024 2:30 PM EDT Hem/Onc Treatment Hematology/Oncology Treatment, [address], [place] [phone] Destiny, Chair 1 Hem Onc [address] [place] [address] 04/04/2024 9:20 AM EDT Laboratory Laboratory, [place] [address] [place] [phone] [place] [address] [place], [place] [phone] 05/10/2024 9:00 AM EDT Office Visit Gastroenterology, [facility] 132 [place] [address] Angelita Mcleod CRNP [facility] [address] 05/21/2024 3:00 PM EDT Office Visit Hematology/Oncology [address] [address] Pamela Holliday CRNP [facility] [place] [address] Scheduled Orders Name Type Priority Associated Diagnoses Orde r Schedule CBC WITH WBC DIFFERENTIAL Lab STAT Antepartum anemia complicating Every Month for 12 Occurrences starting 02/16/2024 until 02/14/2025 IRON SCREEN, INCLUDING TIBC Lab STAT Antepartum anemia complicating Every Month for 12 Occurrences starting 02/16/2024 until 02/14/2025 FERRITIN Lab STAT Antepartum anemia complicating Every Month for 12 Occurrences starting 02/16/2024 until 02/14/2025 Health Maintenance Due Date Last Done Comments [...] antepartum documented in this encounter Care Teams Exercise Rider Relationship Specialty Start Date End Date Caroline Jc MD [address] [place] [address] PCP - General Family Medicine 03/02/22 documented as of this encounter
[2024-08-08] MEDS: LIDOCAINE 2%/EPINEPHRINE 1:200,000 20 ML PF EPI STA (12:43)
[2024-08-08] MEDS: BUPIVACAINE 0.25% PF 30 ML VIAL EPI STA (12:43)
[2024-08-08] MEDS: fentaNYL citrate PF 100 MCG/2 ML VIAL EPI STA (12:43)
[2024-08-08] MEDS: SODIUM CHLORIDE 0.9% PF INJ 10 ML VIAL EPI STA (12:43)
[2024-08-08] MEDS: OXYTOCIN 30 UNITS/NSS 30 UNITS/500 ML BAG IV PRN (12:45)
[2024-08-08] MEDS: METHYLERGONOVINE MALEATE 0.2 MG/ML AMP IM ONE (15:55)
[2024-08-08] MEDS ORDERED: IBUPROFEN 600 MG TAB PO PRN (16:27)
[2024-08-08] MEDS ORDERED: oxyCODONE/ACETAMINOPHEN 5mg/325mg TAB PO PRN (16:27)
[2024-08-08] MEDS ORDERED: HYDROCORTISONE ACETATE 25 MG SUPP PR PRN (16:27)
[2024-08-08] MEDS ORDERED: bisacodyL 10 MG SUPP PR PRN (16:27)
[2024-08-08] MEDS ORDERED: ACETAMINOPHEN W/CODEINE #3 1 TAB PO PRN (16:27)
--- NOTE | 2024-08-08 16:35 | Delivery Summary ---
Vaginal Delivery Summary Date of Service August 08, 2024 Vaginal Delivery Summary Patient was admitted in active labor at 39 weeks 3 days gestation. Eventually she received epidural for pain control. Following this she was augmented with some IV Pitocin. She went to full dilatation pushed out a live female via direct occiput anterior position over an intact perineum. Infant was suctioned through the mouth and the nose. Cord was allowed to pulse for 1 minute. There was a nuchal cord x 1 which was reduced over the head prior to delivery of the shoulders. After allowing the cord to pulse the placenta was removed intact with IV Pitocin running. Inspection of the perineum revealed a superficial sulcus at 3:00 on the left side. A midline laceration. Small sulcus on the right side. And a tear of the perineum down to the rectal sphincter capsule. The 2 sulcus lacerations were repaired with a running Vicryl suture. The midline laceration was then repaired with a heavy Vicryl suture out and to beyond the hymenal ring. The bulbocavernosus muscle was approximated with a deep suture on each side. Perineal body was approximated with an interrupted suture of Vicryl. The anterior rectal sphincter capsule was was bolstered with 2 interrupted sutures of Vicryl. Then a running subcuticular suture of Vicryl was used to approximate the perineal skin edges. Following this vaginal exam including rectovaginal examination revealed no stitches through the rectum. No sponges. Hemostasis was good and the repair was anatomically sound. Quantitative blood loss was 507 mL.
[2024-08-08] MEDS: ePHEDrine sulfate 50 MG/ML AMP ONE (16:40)
[2024-08-08] MEDS: DIPHTHER/TETAN/PERTUS Vaccine (Tdap, Adol/Adult) 0.5mL IM ONE (16:40)
--- NOTE | 2024-08-08 17:49 | Anesthesia Procedure Note ---
Date of Service August 08, 2024 Anesthesia Post Epidural Note Vital Signs Vital Signs: Temp Pulse Resp BP Pulse Ox 36.8 C 85 16 101/60 100 08/08/24 15:31 08/08/24 17:46 08/08/24 17:21 08/08/24 17:46 08/08/24 16:29 Notes Mental Status: alert / awake / arousable Nausea / Vomiting: adequately controlled Pain: adequately controlled Airway Patency, RR, SpO2: stable & adequate BP & HR: stable & adequate Hydration State: stable & adequate Neuraxial Anesthesia: was administered and sensory block is resolving Anesthetic Complications: no major complications apparent and Pt Satisfied with anesthetic care Epidural: Removed without complications and With tip intact
[2024-08-08] MEDS: ACETAMINOPHEN 325 MG TAB PO PRN (18:41)
[2024-08-08] MEDS: BENZOCAINE 20% SPRY 85 APPLN/85 GM CAN EXT PRN (18:43)
[2024-08-08] MEDS: CALCIUM CARBONATE 500 MG CHEWABLE TAB PO PRN (19:16)
[2024-08-08] MEDS: DOCUSATE SODIUM 100 MG CAP PO SCH (21:32)
[2024-08-09 06:14] LABS: Hematocrit (blood only) 28.2 % (37.0-47.0); Hemoglobin 9.4 g/dl (12.0-16.0); Mean Corpuscular Hgb Conc 33.3 g/dL (32.0-36.0); Mean Corpuscular Volume 90.1 fL (80.0-100.0); Platelet Count 165 K/uL (130-400); RDW Coefficient of Variation 13.9 % (11.5-14.5); RDW Standard Deviation 45.3 fL (36.4-46.3); Red Blood Count 3.13 M/uL (4.20-5.40); White Blood Count 11.47 K/ul (4.8-10.8)
[2024-08-09] MEDS: PRENATAL VITAMIN 1 TAB PO SCH (09:08)
[2024-08-09] MEDS ORDERED: POLYETHYLENE (MIRALAX) 17 GM PACK PO PRN (10:37)
--- NOTE | 2024-08-09 11:22 | Obstetrical Progress Note ---
Date of Service August 09, 2024 Assessment & Plan (1) Normal course: Pt doing well No complaints anticipate disch tomorrow Subjective Ambulation: ambulating normally Voiding: no voiding problems Passing Gas:: Yes Diet Tolerance:: regular diet Lochia:: Small Feeding Type:: breast feeding Review of Systems All systems reviewed & are unremarkable except as noted in HPI & below Physical Exam Constitutional WD/WN, vitals as above well developed and well nourished Eyes PERRL, conjunctivae normal, anicteric sclerae Neck trachea midline, no thyromegaly Respiratory normal respiratory effort, lungs clear to auscultation Auscultation: no crackles, no rales and no wheezes Cardiovascular RRR, no murmur, no edema Gastrointestinal (Abdomen) normal bowel sounds, soft, nontender, no hepatosplenomegaly Uterus is below umbilicus Musculoskeletal no cyanosis or clubbing, extremities motor strength 5/5 Skin no rashes, warm and dry Neurologic patellar DTR's 2+ bilat, sensation intact Psychiatric A+Ox3, euthymic affect Genitourinary normal external appearance Results & Data Vital Signs (Past 12 Hours) Vital Signs Temp Pulse Resp BP Pulse Ox O2 Del Method 08/09/24 07:40 36.7 C 84 20 96/61 L 98 Room Air 08/09/24 03:41 36.7 C 88 16 96/61 L 99 Room Air
[2024-08-09] MEDS: bisacodyL 5 MG TABEC PO SCH (20:31)
[2024-08-10 06:00] LABS: Hematocrit (blood only) 27.3 % (37.0-47.0); Hemoglobin 9.1 g/dl (12.0-16.0)
--- NOTE | 2024-08-10 08:11 | Obstetrical Progress Note ---
Date of Service August 10, 2024 Assessment & Plan (1) Normal course: Pt doing well No complaints d/c home with instructions Results & Data Vital Signs (Past 12 Hours) Vital Signs Temp Pulse Resp BP Pulse Ox O2 Del Method 08/10/24 00:25 36.5 C 84 18 101/65 98 Room Air
[2024-08-10] MEDS: BIFIDOBACTERIUM PO SCH (08:52)
[2024-08-10] MEDS: LANSOPRAZOLE 30 MG SOLTAB PO SCH (08:55)
[2024-08-10] MEDS: CYANOCOBALAMIN (B-12) 500 MCG TABLET PO SCH (08:55)
[2024-08-10] MEDS ORDERED: POLYETHYLENE (MIRALAX) 17 GM PACK PO SCH (09:00)
[2024-08-10] MEDS ORDERED: PANTOprazole 40 MG TAB PO SCH (09:00)
[2024-08-10] MEDS ORDERED: CYANOCOBALAMIN (B-12) 500 MCG TABLET PO SCH (09:00)
[2024-08-10] MEDS: POLYETHYLENE (MIRALAX) 17 GM PACK PO SCH (09:01)
[2024-08-10 10:25] VITALS: BP 107/67; PULSE 75; RESP 20; TEMP 98.1; O2SAT 99
== END 2024-08-10 15:15 | disposition home or self-care (01) | DRG 807 ==
LOC: OPB 02:40 → 4S1 02:42 → 4E2 19:48